=== PATIENT | male | born 1945 | race American Indian/Alaskan Native ===

== ENCOUNTER 2018-04-14 20:14 | Emergency (ER) | payer MEDICARE ==
--- NOTE | 2018-04-14 20:45 | Emergency Department Report ---
HPI - General Time Seen by Provider: 04/14/18 20:30 - HPI HPI: 72-year-old -[place] male presents to the emergency department via EMS from home with complaint of some right-sided abdominal and flank pain that started just prior to arrival. He tried some Tylenol for his symptoms without any relief. The pain is sharp and intermittent. There are no known aggravating or alleviating factors. He denies any problems with bowel or bladder, numbness or paresthesias, nausea or vomiting, fever, back pain. The patient appears to have a past medical history includes peripheral vascular disease, COPD, TIA, hypertension, AAA and previous kidney disease. The patient was just here at the end of March for a workup regarding some generalized weakness. Patient had a full cardiac workup at the beginning of 2017 that showed an EF of 55%. His primary care physician is Dr. Jameson. ED Past Medical Hx - Past Medical History Hx Hypertension: Yes Hx CVA: Yes (TIA) Hx Congestive Heart Failure: No Hx Diabetes: No Hx Renal Disease: Yes (not on dialysis) Hx Arthritis: Yes Hx Asthma: Yes Hx COPD: No Hx HIV: No Additional medical history: PAD. Anemia. suprarenal and infrarenal aortic abdominal aneurysm - Surgical History Additional Surgical History: aortobifemoral bypass graft - Social History Smoking Status: Never Smoker - Medications Home Medications: Home Medications Medication Instructions Recorded Confirmed Last Taken Type Losartan [Cozaar] 100 mg PO QDAY tablet 07/15/17 04/06/18 02/23/18 Rx amLODIPine [Norvasc] 10 mg PO QAM #30 tablet 07/15/17 04/06/18 02/23/18 Rx raNITIdine HCl [Zantac 300 MG TAB] 300 mg PO BID #60 tablet 07/15/17 04/06/18 02/23/18 Rx Ondansetron [Zofran TAB] 4 mg PO Q8HR PRN #21 tablet 01/04/18 04/08/18 02/23/18 Rx Acetaminophen [Acetaminophen TAB] 650 mg PO Q4H PRN #15 tablet 02/27/18 04/08/18 Unknown Rx HYDROcodone/APAP 7.5-325 [[place] 1 each PO Q6HR PRN #10 tablet 03/08/18 04/08/18 Unknown Rx 7.5-325 mg TAB] Fenofibrate [Tricor] 48 mg PO QDAY #30 tablet 03/11/18 04/06/18 Unknown Rx Furosemide [Lasix TAB] 40 mg PO QDAY #30 tablet 03/11/18 04/06/18 Unknown Rx Isosorbide Mononitrate 30 mg PO QAM 04/06/18 04/06/18 Unknown History Metoprolol [Lopressor TAB] 75 mg PO BID 04/06/18 04/06/18 Unknown History Amoxicillin [Trimox CAP] 500 mg PO Q8HR #15 capsule 04/10/18 Unknown Rx guaiFENesin/CODEINE [Robitussin AC] 10 ml PO Q8H PRN 10 Days oral.liqd 04/10/18 Unknown Rx ED Review of Systems ROS: Stated complaint: ABD PAIN Other details as noted in HPI Comment: All other systems reviewed and negative Constitutional: denies: chills, fever Eyes: denies: eye pain, eye discharge, vision change ENT: denies: ear pain, throat pain Respiratory: denies: cough, shortness of breath, wheezing Cardiovascular: denies: chest pain, palpitations Gastrointestinal: abdominal pain. denies: nausea, vomiting Genitourinary: denies: dysuria, discharge Musculoskeletal: denies: back pain, arthralgia Skin: denies: rash, lesions Neurological: denies: headache, weakness Physical Exam - Physical Exam Physical Exam: GENERAL: The patient is well-developed well-nourished. HEENT: Normocephalic. Atraumatic. Patient has moist mucous membranes. EYES: Extraocular motions are intact. Pupils are equal and reactive to light bilaterally. NECK: Supple. Trachea is midline. CHEST/LUNGS: Clear to auscultation. There is no respiratory distress noted. HEART/CARDIOVASCULAR: Irregular rhythm with tachycardia. ABDOMEN: Abdomen is soft. Right-sided abdominal tenderness to palpation. No guarding. Patient has normal bowel sounds. There is no abdominal distention. SKIN: Skin is warm and dry. NEURO: The patient is awake, alert, and cooperative. The patient has no focal neurologic deficits. The patient has normal speech. MUSCULOSKELETAL: There is no tenderness or deformity. There is no limitation range of motion. There is no evidence of acute injury. ED Course - Consultations Consultation #1: I spoke to the general surgeon field installation technician earlier in the evening, Dr. Moise, regarding the patient's CT findings of a retroperitoneal bleed without a source. Dr. Moise took a look at the CT scan and the patient's recent admission. He recommended giving a vascular surgeon involved but he is going to see the patient has a consult first thing in the morning and recommends admission to the hospitalist service. I spoke with the applied computer science professor on-call for [facility], Dr. Morgan, regarding the patient's EKG findings of atrial fibrillation with RVR and also the fact that I do not have the ability to anticoagulate secondary to the patient's finding of the retroperitoneal bleed. Dr. Morgan has agreed to see the patient as a cons ult. I spoke with the vascular surgeon field installation technician, Dr. Macias, in great detail regarding the patient's presentation, history and CT findings of the retroperitoneal bleed without a source. Dr. Macias took the time to look at the CT scan and has concern that there could be multiple different areas of aneurysmal rupture or bleed such as a pancreaticoduodenal artery or a renal artery. Since the patient has aneurysmal disease, a AAA, and previous findings of duodenal pancreatic inflammation, he says that the patient will need a stat MRA of the abdomen and pelvis with gadolinium to evaluate the source of the patient's bleed so that it can be treated. He says that if we are unable to obtain a stat MRA then the patient should be transferred to another facility. 04/15/18 04:15 Consultation #2: I spoke with the vascular surgeon field installation technician for [facility] who informed me noemi t they are on both ICU and ER saturation and cannot accept the patient. I spoke with the vascular surgeon field installation technician for [facility], Dr. Wheeler, who listened to the case presentation and graciously accepted the patient for transfer to the emergency department for further evaluation. 04/15/18 04:19 ED Medical Decision Making - Lab Data Result diagrams: 04/15/18 01:52 04/14/18 21:33 - EKG Data -: EKG Interpreted by Me Rate: tachycardia (101 bpm) - EKG Data When compared to previous EKG there are: previous EKG unavailable Interpretation: other (supraventricular bigeminy, incomplete right bundle branch block) - Radiology Data Radiology results: report reviewed EXAM: XR ABD SERIES W CXR 1V HISTORY: Abdominal Pain TECHNIQUE: PA view of the chest and supine and erect views of the abdomen PRIORS: CXR 04/06/2018, KUB abdomen 03/07/2018 FINDINGS: Chest: There is alveolar infiltrate and small pleural effusion in the right lung base. Trachea is midline. Cardiac and mediastinal silhouettes are unremarkable. Bony structures are intact. Abdomen: Mild gaseous distention of several small bowel loops containing air- fluid level are noted. However, there is moderate stool present throughout the colon. Findings are nonspecific and could be consistent with ileus or early small-bowel obstruction. No free air is identified. Soft tissues have no evidence for mass shadows or calcifications. Scattered surgical clips in the left abdomen are again noted. The bony structures are intact. IMPRESSION: 1. Right basilar infiltrate and small right effusion 2. Mild gaseous distension with air-fluid levels of several central small bowel loops. Findings may be consistent with focal ileus although early small-bowel obstruction is not excluded. Transcribed By: [facility] Dictated By: CRISTINE ZAPATA MD Electronically Authenticated By: CRISTINE ZAPATA MD Signed Date/Time: 04/14/18 2732 PROCEDURE: CT ABDOMEN PELVIS WO CON TECHNIQUE: Computerized axial tomography of the abdomen and pelvis was performed without intravenous contrast. This study is performed without intravascular contrast material and its sensitivity for abdominal and pelvic pathology, including neoplasms, inflammation, abscess, free fluid, thrombosis, arterial dissection and infarction, is reduced compared with a contrast enhanced study. HISTORY: abdominal pain COMPARISON: 02/23/2018 FINDINGS: Visualized lower thorax: There is atelectasis and moderate effusion in the right lower lung. Liver: Normal size and attenuation. Spleen: Normal size and attenuation. Gallbladder and biliary system: Normal. Pancreas: There remains slight enlargement of the head of the pancreas. There are few cysts identified in the head of the pancreas. Thickening of the bowel wall involving the second-third portion of the duodenum is again noted. The mass at the head of the pancreas is not excluded... Adrenals: There is enlargement of the left adrenal gland with an area of hypoattenuation measuring 12 millimeters. An adenoma is suspected. The right adrenal gland is not the well-delineated on this study. There is retroperitoneal fluid the which may represent ends the a combination of hemorrhage and inflammatory change is in the region surrounding kidney and lower region of the liver. Kidneys: Both kidneys have a normal size. No hydronephrosis. There are a few stones identified within the left renal cortex. There is fluid in the right retroperitoneal region surrounding the medial aspect of right kidney just anterior to the psoas muscle.. GI tract: No obstruction is seen. There is moderate fecal debris in the colon.. Lymph nodes and mesentery: Normal. Vasculature: Moderate atherosclerosis of aorta with an infrarenal abdominal aortic aneurysm again noted. This measures 4.3 centimeters.. Bladder: Normal. Reproductive organs: Normal. Peritoneum: There is fluid identified in right retroperitoneal region and the right pericolic gutter extending down into the pelvis. Spontaneous hematoma is suspected. The. Musculoskeletal structures: Mild degenerate changes of the lumbar spine.. Other: None. IMPRESSION: Moderate fluid identified in the right retroperitoneal region surrounding the medial aspect of right kidney anterior to the psoas muscle and extending down around the right pericolic gutter and pelvis. Spontaneous hematoma in the retroperitoneum is suspected. There is prominence of pancreatic head a few cysts identified in this region. There is thickening of the duodenal wall along the 2nd and 3rd portion of the duodenum. These findings have not changed since prior study. Pancreatic mass is possible. There is moderate atelectasis and effusion in the right lower lung. There is a stable infrarenal abdominal aortic aneurysm this measures 4.3 centimeters. Transcribed By: [facility] Dictated By: BJ MATUTE MD Electronically Authenticated By: BJ MATUTE MD Signed Date/Time: 04/15/1849 - Medical Decision Making This patient presented with acute right-sided abdominal pain. Patient's labs have been abnormal with a 20,000 white count with neutropenia and bandemia. He has mild hyperkalemia, JOCELYN, elevated lipase. Abd X-ray shows concern for ileus vs bowel obstruction. The CT scan of the abdomen and pelvis shows a right-sided retroperitoneal bleed without a source. The patient also has atrial fibrillation with RVR or at least some irregular rhythm with tachycardia. He was given some dose of Lopressor for rate control but obviously no blood thinnin g medication secondary to the retroperitoneal bleed. Otherwise the patient's blood pressure has remained steady. I spoke with cardiology regarding the irregular rhythm, and with general surgery regarding the retroperitoneal bleed. It was recommended to contact and discuss the case with vascular surgery. Per the consultation section, I spoke with Dr. Macias, who felt that the patient needed a stat MRI/MRA with gadolinium. Since I am unable to get an MRI at this facility overnight until about 7 or 8 AM, and since it was recommended to get this imaging done as soon as possible, it was recommended to transfer the patient to another facility where this imaging can be done expediently. I spoke with the vascular surgeon field installation technician at [facility] who accepted the patient for transfer to their facility. Patient will be transferred over there with his images and records lights and sirens. I also called and spoke with the patient's daughter and updated her about the plan for transfer and she understands and agrees. - Differential Diagnosis aneurysmal rupture, malignancy, hemorrhagic cyst Critical Care Time: Yes Critical care time in (mins) excluding proc time.: 75 Critical care attestation.: If time is entered above; I have spent that time in minutes in the direct care of this critically ill patient, excluding procedure time. Critical care time was spent on this patient during his initial evaluation, multiple re- evaluations, ordering an interpretation of labs and imaging, discussion with the general surgeon/applied computer science professor/hospitalist/vascular surgeons, discussion with the patient and his family. Critical Care Time: 75 minutes ED Disposition Clinical Impression: Retroperitoneal bleed, Acute kidney injury, Ventricular trigeminy, Tachyarrhythmia Anemia Qualifiers: Anemia type: unspecified type Qualified Code(s): D64.9 - Anemia, unspecified Disposition: DC/TX-70 ANOTHER TYPE HLTHCARE Is pt being admited?: No Condition: Serious Referrals: PRIMARY CARE, [Primary Care Provider] - 3-5 Days Time of Disposition: 05:05
[2018-04-14] MEDS ORDERED: CARDIZEM IV ONE (20:46)
[2018-04-14] MEDS ORDERED: LOPRESSOR IV ONE (21:29)
[2018-04-14 22:16] LABS: Hematocrit 31.4 % (35.5-45.6); Mean Corpuscular HGB Conc 32 % (32-34); Mean Corpuscular Volume 92 fl (84-94); Platelet Count 593 K/mm3 (140-440); Red Blood Count 3.42 M/mm3 (3.65-5.03)
[2018-04-14 22:17] LABS: Red Cell Distribution Width 20.2 % (13.2-15.2)
[2018-04-14] MEDS ORDERED: ZOSYN/NS 4.5GM/100ML 4.5 GM/100 ML VIAL IV ONE (22:19)
[2018-04-14 22:20] LABS: INR 1.1 (0.87-1.13)
[2018-04-14] MEDS ORDERED: NACL 0.9% 1000 ML 1,000 ML IV ONE (22:20)
[2018-04-14 22:26] LABS: Albumin 2.8 g/dL (3.9-5); Bilirubin,Direct 0.2 mg/dL (0-0.2); Calcium 8.6 mg/dL (8.4-10.2)
--- NOTE | 2018-04-14 22:45 | XRay Report ---
FINAL REPORT EXAM: XR ABD SERIES W CXR 1V HISTORY: Abdominal Pain TECHNIQUE: PA view of the chest and supine and erect views of the abdomen PRIORS: CXR 04/06/2018, KUB abdomen 03/07/2018 FINDINGS: Chest: There is alveolar infiltrate and small pleural effusion in the right lung base. Trachea is mid line. Cardiac and mediastinal silhouettes are unremarkable. Bony structures are intact. Abdomen: Mild gaseous distention of several small bowel loops containing air-fluid level are noted. H owever, there is moderate stool present throughout the colon. Findings are nonspecific and could be c onsistent with ileus or early small-bowel obstruction. No free air is identified. Soft tissues have no evidence for mass shadows or calcifications. Scattered surgical clips in the left abdomen are agai n noted. The bony structures are intact. IMPRESSION: 1. Right basilar infiltrate and small right effusion 2. Mild gaseous distension with air-fluid levels of several central small bowel loops. Findings may b e consistent with focal ileus although early small-bowel obstruction is not excluded.
[2018-04-14 22:49] LABS: Band Neutrophils # (Manual) 2.5 K/mm3; Basophils % (Manual) 0 % (0.0-1.8); Eosinophils % (Manual) 0 % (0.0-4.3); Monocytes % (Manual) 5.5 % (0.0-7.3); Nucleated Red Blood Cells 1.5 % (0.0-0.9); Total Cells Counted 200
[2018-04-14 22:50] LABS: Anisocytosis 1+
[2018-04-14 22:51] LABS: Ovalocytes Few; Platelet Estimate Appears Increased; Poikilocytosis Few
[2018-04-14] MEDS ORDERED: MORPHINE IV ONE (23:20)
[2018-04-14] MEDS ORDERED: ZOFRAN IV ONE (23:21)
[2018-04-14 23:59] LABS: Amorphous Crystals,Urine 2+; Bacteria,Urine 1+ /HPF (Negative); Bilirubin,Urine NEG (Negative); Blood,Urine NEG (Negative); Color,Urine Yellow (Yellow); Granular Casts,Urine 3 /LPF; Mucus,Urine FEW /HPF; Urobilinogen,Urine < 2.0 mg/dL (<2.0)
--- NOTE | 2018-04-15 00:50 | Cat Scan Report ---
FINAL REPORT PROCEDURE: CT ABDOMEN PELVIS WO CON TECHNIQUE: Computerized axial tomography of the abdomen and pelvis was performed without intravenous contrast. This study is performed without intravascular contrast material and its sensitivity for ab dominal and pelvic pathology, including neoplasms, inflammation, abscess, free fluid, thrombosis, art erial dissection and infarction, is reduced compared with a contrast enhanced study. HISTORY: abdominal pain COMPARISON: 02/23/2018 FINDINGS: Visualized lower thorax: There is atelectasis and moderate effusion in the right lower lung. Liver: Normal size and attenuation. Spleen: Normal size and attenuation. Gallbladder and biliary system: Normal. Pancreas: There remains slight enlargement of the head of the pancreas. There are few cysts identifie d in the head of the pancreas. Thickening of the bowel wall involving the second-third portion of the duodenum is again noted. The mass at the head of the pancreas is not excluded... Adrenals: There is enlargement of the left adrenal gland with an area of hypoattenuation measuring 12 millimeters. An adenoma is suspected. The right adrenal gland is not the well-delineated on this roberto dy. There is retroperitoneal fluid the which may represent ends the a combination of hemorrhage and i nflammatory change is in the region surrounding kidney and lower region of the liver. Kidneys: Both kidneys have a normal size. No hydronephrosis. There are a few stones identified within the left renal cortex. There is fluid in the right retroperitoneal region surrounding the medial asp ect of right kidney just anterior to the psoas muscle.. GI tract: No obstruction is seen. There is moderate fecal debris in the colon.. Lymph nodes and mesentery: Normal. Vasculature: Moderate atherosclerosis of aorta with an infrarenal abdominal aortic aneurysm again not ed. This measures 4.3 centimeters.. Bladder: Normal. Reproductive organs: Normal. Peritoneum: There is fluid identified in right retroperitoneal region and the right pericolic gutter extending down into the pelvis. Spontaneous hematoma is suspected. The. Musculoskeletal structures: Mild degenerate changes of the lumbar spine.. Other: None. IMPRESSION: Moderate fluid identified in the right retroperitoneal region surrounding the medial aspect of right kidney anterior to the psoas muscle and extending down around the right pericolic gutter and pelvis. Spontaneous hematoma in the retroperitoneum is suspected. There is prominence of pancreatic head a few cysts identified in this region. There is thickening of the duodenal wall along the 2nd and 3rd portion of the duodenum. These findings have not changed sinc e prior study. Pancreatic mass is possible. There is moderate atelectasis and effusion in the right lower lung. There is a stable infrarenal abdominal aortic aneurysm this measures 4.3 centimeters. The above findings are discussed with the patient's ER physician Dr. Lobo at the time of dictation 0 048 Eastern standard time on 04/15/2018 .
[2018-04-15] MEDS ORDERED: MORPHINE IV ONE (01:02)
[2018-04-15 02:05] LABS: Hematocrit 29.2 % (35.5-45.6); Hemoglobin 9.3 gm/dl (11.8-15.2)
--- NOTE | 2018-04-15 03:10 | Event Note ---
Date: 04/15/18 Contacted about 72 year old male with underlying PVD and right retroperitoneal hematoma. Reviewed CT scan on 04/15/18 and 02/28. Patient had duodenitis/pancreatitis and now has right retroperitoneal hematoma. He is status post aortobifemoral bypass with residual aneurysm measuring 4.2 cm above the aortobifemoral bypass, which is small and stable from prior CT. The retroperitoneal hematoma is concerning. Given underlying EJ, recommend MRA of the abdomen and pelvis with gadolinium contrast.
[2018-04-15 05:40] VITALS: BP 130/73
== END 2018-04-15 04:55 | disposition other institution (70) ==
LOC: ED 20:14
DX: N17.9 Acute kidney failure, unspecified (principal); K66.1 Hemoperitoneum; R00.8 Other abnormalities of heart beat; R00.0 Tachycardia, unspecified; D64.9 Anemia, unspecified
CPT/HCPCS: 36415; 74022; 74176; 80048; 80076; 81001; 82140; 83690; 84484; 85007; 85014; 85018; 85025; 85610; 86850; 86900; 86901; 87040; 93005; 93010; 96365; 96375; 96376; 99291; 99292; G0480; J2270; J2405; J2543; J7030; 80320

== ENCOUNTER 2020-08-05 15:52 | Inpatient (IN) | payer MEDICARE ==
[2020-08-05] MEDS ORDERED: VANCOMYCIN 1,250 MG in SODIUM CHLORIDE 0.9% 500 ML 500 ML IV ONE (16:12)
[2020-08-05] MEDS ORDERED: CEFEPIME/NS 2 GM/100 ML 2 GM/100 ML BAG IV ONE (16:12)
--- NOTE | 2020-08-05 16:19 | Emergency Department Report ---
ED Shortness of Breath HPI - General Chief Complaint: Dyspnea/Respdistress Stated Complaint: COREEN Time Seen by Provider: 08/05/20 15:58 Source: EMS Mode of arrival: Stretcher Limitations: Altered Mental Status, Physical Limitation - History of Present Illness Initial Comments: Chief complaint: Shortness of breath, hypoxia This is a 75-year-old male who presents from care home facility [facility] for shortness of breath hypoxia. Patient has history of chronic kidney disease, pancreatitis, CHF, sepsis, respiratory failure, COPD, TIA, asthma peripheral vascular disease status post left AKA who presents with shortness of breath hypoxia. Patient was recently diagnosed with pneumonia at a skilled nurse facility. Patient repeatedly refused transportation to the hospital according to daughter at the bedside. Patient has been treated with oral antibiotics at care home facility. First responders placed patient on nasal cannula. Patient had hypoxia 78% oxygen saturations by nasal cannula. Patient denies pain. He does have some shortness of breath. Daughter informed me that he has refused COVID-19 vaccination. He was diagnosed with COVID-19 at outside hospital during on last year. Patient is full CODE STATUS. Patient's December 23, 2019. Patient has been a resident of [facility] since 2019. Complaint: shortness of breath -: Gradual, days(s) (Several days) Severity: severe Consistency: intermittent Improves With: oxygen Worsens With: nothing Known History Of: COPD, congestive heart failure Context: other (Recent diagnosis of pneumonia at care home facility, patient refused hospitalization or transportation to the hospital during the past recent days) Associated Symptoms: denies other symptoms - Related Data Home Medications Medication Instructions Recorded Confirmed Last Taken Isosorbide Mononitrate 30 mg PO QAM 04/06/18 12/07/18 12/06/18 oxyCODONE [roxiCODONE] 5 mg PO Q6HR PRN 12/07/18 12/07/18 Unknown Previous Rx's Medication Instructions Recorded Last Taken Type amLODIPine 10 mg PO QAM #30 tablet 07/15/17 12/06/18 Rx raNITIdine HCL [Zantac 300 MG TAB] 300 mg PO BID #60 tablet 07/15/17 12/06/18 Rx Acetaminophen [Acetaminophen TAB] 650 mg PO Q4H PRN #15 tablet 02/27/18 12/06/18 Rx Fenofibrate [Tricor] 48 mg PO QDAY #30 tablet 03/11/18 12/06/18 Rx Aspirin EC [Ecotrin] 81 mg PO QDAY tablet 12/10/18 Unknown Rx AtorvaSTATin [Lipitor] 80 mg PO QHS #30 tablet 12/10/18 Unknown Rx Clopidogrel [Plavix] 75 mg PO QDAY tablet 12/10/18 Unknown Rx Furosemide [Lasix TAB] 40 mg PO QDAY tablet 12/10/18 Unknown Rx Furosemide [Lasix TAB] 40 mg PO QDAY #30 tablet 12/10/18 Unknown Rx ISOSORBIDE MONOnitrate [Imdur ER] 30 mg PO DAILY tablet 12/10/18 Unknown Rx Losartan [Cozaar] 100 mg PO QDAY #30 tablet 12/10/18 Unknown Rx Sodium Hypochlorite [Dakin's Half 1 applic TP BID bottle 12/10/18 Unknown Rx Strength] Vitamin A&D [Ad Ointment] 1 applic TP QDAY tube 12/10/18 Unknown Rx traMADoL [Ultram 50 MG tab] 50 mg PO Q12H PRN #8 tablet 12/10/18 Unknown Rx Allergies Allergy/AdvReac Type Severity Reaction Status Date / Time hydrochlorothiazide Allergy Unknown Verified 12/01/13 22:38 lisinopril Allergy Unknown Verified 12/01/13 22:38 rosuvastatin calcium Allergy Anaphylaxis Verified 12/01/13 22:38 [From Crestor] spironolactone Allergy Unknown Verified 12/01/13 22:38 banana AdvReac Unknown Verified 12/08/18 15:00 diltiazem [From Cardizem] AdvReac Unknown Verified 02/24/18 17:52 latex AdvReac Itching Verified 02/24/18 10:45 ED Review of Systems ROS: Stated complaint: COREEN Other details as noted in HPI Comment: All other systems reviewed and negative Constitutional: malaise Respiratory: cough, shortness of breath, wheezing Cardiovascular: denies: chest pain Gastrointestinal: denies: abdominal pain, nausea, vomiting ED Past Medical Hx - Past Medical History Previous Medical History?: Yes Hx Hypertension: Yes Hx CVA: Yes (TIA) Hx Congestive Heart Failure: No Hx Diabetes: No Hx Renal Disease: Yes (not on dialysis) Hx Arthritis: Yes Hx Asthma: Yes Hx COPD: No Hx HIV: No Additional medical history: PAD. Anemia. suprarenal and infrarenal aortic abdominal aneurysm - Surgical History Past Surgical History?: Yes Additional Surgical History: aortobifemoral bypass graft. Left AKA - Social History Smoking Status: Former Smoker - Medications Home Medications: Home Medications Medication Instructions Recorded Confirmed Last Taken Type amLODIPine 10 mg PO QAM #30 tablet 07/15/17 12/07/18 12/06/18 Rx raNITIdine HCL [Zantac 300 MG TAB] 300 mg PO BID #60 tablet 07/15/17 12/07/18 12/06/18 Rx Acetaminophen [Acetaminophen TAB] 650 mg PO Q4H PRN #15 tablet 02/27/18 12/07/18 12/06/18 Rx Fenofibrate [Tricor] 48 mg PO QDAY #30 tablet 03/11/18 12/07/18 12/06/18 Rx Isosorbide Mononitrate 30 mg PO QAM 04/06/18 12/07/18 12/06/18 History oxyCODONE [roxiCODONE] 5 mg PO Q6HR PRN 12/07/18 12/07/18 Unknown History Aspirin EC [Ecotrin] 81 mg PO QDAY tablet 12/10/18 Unknown Rx AtorvaSTATin [Lipitor] 80 mg PO QHS #30 tablet 12/10/18 Unknown Rx Clopidogrel [Plavix] 75 mg PO QDAY tablet 12/10/18 Unknown Rx Furosemide [Lasix TAB] 40 mg PO QDAY tablet 12/10/18 Unknown Rx Furosemide [Lasix TAB] 40 mg PO QDAY #30 tablet 12/10/18 Unknown Rx ISOSORBIDE MONOnitrate [Imdur ER] 30 mg PO DAILY tablet 12/10/18 Unknown Rx Losartan [Cozaar] 100 mg PO QDAY #30 tablet 12/10/18 Unknown Rx Sodium Hypochlorite [Dakin's Half 1 applic TP BID bottle 12/10/18 Unknown Rx Strength] Vitamin A&D [Ad Ointment] 1 applic TP QDAY tube 12/10/18 Unknown Rx traMADoL [Ultram 50 MG tab] 50 mg PO Q12H PRN #8 tablet 12/10/18 Unknown Rx ED Physical Exam - General Limitations: Altered Mental Status, Physical Limitation General appearance: alert, other (Mild work of breathing appears chronically ill appears uncomfortable) - Head Head exam: Present: atraumatic, normocephalic - Eye Eye exam: Present: normal appearance - ENT ENT exam: Present: mucous membranes moist - Neck Neck exam: Present: normal inspection, full ROM - Respiratory Respiratory exam: Present: wheezes, rales, rhonchi, decreased breath sounds. Absent: respiratory distress, accessory muscle use - Cardiovascular Cardiovascular Exam: Present: regular rate, normal rhythm, normal heart sounds. Absent: systolic murmur, diastolic murmur, rubs, gallop - GI/Abdominal GI/Abdominal exam: Present: soft, normal bowel sounds. Absent: distended, tenderness, guarding, rebound - Rectal Rectal exam: Present: deferred - Extremities Exam Extremities exam: Present: other (Right lower extremity: Contracted with heel b oot, no ulcers, left AKA) - Neurological Exam Neurological exam: Present: alert, oriented X3 - Psychiatric Psychiatric exam: Present: agitated - Skin Skin exam: Present: warm, dry, intact, rash, pallor ED Course Vital Signs 08/05/20 08/05/20 08/05/20 15:56 16:03 16:15 Temperature 99 F Pulse Rate 96 H 91 H Respiratory 16 16 16 Rate Blood Pressure 182/87 O2 Sat by Pulse 91 98 Oximetry 08/05/20 08/05/20 08/05/20 16:31 16:46 17:00 Temperature Pulse Rate 80 76 78 Respiratory 15 15 16 Rate Blood Pressure O2 Sat by Pulse 97 94 97 Oximetry ED Medical Decision Making - Lab Data Result diagrams: 08/05/20 16:25 08/05/20 16:25 Laboratory Results - last 24 hr 08/05/20 08/05/20 08/05/20 16:25 16:25 16:25 WBC 20.7 H RBC 2.98 L Hgb 7.9 L Hct 24.7 L MCV 83 L MCH 27 L MCHC 32 RDW 18.0 H Plt Count 626 H Seg Neutrophils % [employer] D-Dimer Sodium 139 Potassium 3.7 Chloride 106.1 Carbon Dioxide 24 Anion Gap 13 BUN 13 Creatinine 1.0 Estimated GFR > 60 BUN/Creatinine Ratio 13 Glucose 112 H Lactic Acid 0.70 Calcium 9.0 Ferritin Total Bilirubin 0.30 AST 12 ALT < 5 L Alkaline Phosphatase 54 Lactate Dehydrogenase C-Reactive Protein Total Protein 6.9 Albumin 3.5 L Albumin/Globulin Ratio 1.0 08/05/20 08/05/20 08/05/20 16:25 16:25 16:25 WBC RBC Hgb Hct MCV MCH MCHC RDW Plt Count Seg Neutrophils % D-Dimer 1218.20 H Sodium Potassium Chloride Carbon Dioxide Anion Gap BUN Creatinine Estimated GFR BUN/Creatinine Ratio Glucose 107 H Lactic Acid Calcium Ferritin 817.3 H Total Bilirubin AST ALT Alkaline Phosphatase Lactate Dehydrogenase 225 H C-Reactive Protein 8.30 H Total Protein Albumin Albumin/Globulin Ratio - EKG Data -: EKG Interpreted by Me EKG shows normal: sinus rhythm, axis Rate: normal - EKG Data 08/05/20 16:19 EKG obtained 1607 EKG interpreted by me Normal sinus rhythm rate 90 bpm normal axis normal intervals no ST elevation nonspecific T wave pattern - Radiology Data Radiology results: report reviewed Patient Name: TAMMI CAVANAUGH Gender: Male Date of : 1945 Referring Provider: SYLVIA MATUTE Organization: [facility] Accession Number: [id number] Requested Date: August 05, 2020 16:12 Report Status: Final Requested Procedure: 1 Procedure Description: XR chest 1V ap Modality: XR Findings Reporting MD: Marty Melendez Dictation Time: August 05, 2020 15:48 Office Cleaner: Not available Fingerprint Clerk Date: CHEST 1 VIEW 08/05/2020 3:39 PM INDICATION / CLINICAL INFORMATION: hypoxia recent pneumonia. COMPARISON: 12/07/18 FINDINGS: SUPPORT DEVICES: None. HEART / MEDIASTINUM: Heart is mildly enlarged but stable. LUNGS / PLEURA: Diffuse airspace disease throughout the right lung and in the left lung base. Mild associated interstitial edema and small bilateral pleural effusions. No pneumothorax. ADDITIONAL FINDINGS: No significant additional findings. IMPRESSION: 1. Bilateral airspace disease possibly representing pneumonia versus airspace edema. Small bilateral pleural effusions. Signer Name: Marty Melendez MD Signed: 08/05/2020 3:48 PM Workstation Name: [id number] - Medical Decision Making Acute respiratory failure hypoxia due to healthcare associated pneumonia suspicious for bacterial pneumonia. However, during pandemic and vaccination status COVID-19 must be considered. Patient is requiring 4 L nasal cannula for oxygenation. On 4 L nasal cannula oxygen saturation 98%. Broad-spectrum antibiotics cefepime vancomycin COVID-19 precautions initiated. Echocardiogram obtained 02/20/2018 revealed: Ejection fraction 55 to 60% with normal systolic function. Covid markers ferritin D-dimer LDH CRP all elevated, significant leukocytosis noted, microcytic anemia has developed and worsened since 2018 H&H lowest value for patient Critical Care Time: Yes Critical care time in (mins) excluding proc time.: 40 Critical care attestation.: If time is entered above; I have spent that time in minutes in the direct care of this critically ill patient, excluding procedure time. 40 minutes of critical care time excluding procedures were used in the care of the patient. I came immediately to the bedside upon patient's arrival. I obtained history from EMS at the bedside. I discussed treatment plan with the nursing team members. I reviewed electronic record. I obtained history from the daughter at the bedside. I reviewed electronic medical record. I was concerned for imminent airway compromise. Patient required multiple interventions and reassessments. ED Disposition Clinical Impression: Healthcare-associated pneumonia, Acute respiratory failure with hypoxia, Suspected COVID-19 virus infection Disposition: OP ADMIT IP TO THIS HOSP Is pt being admited?: Yes Does the pt Need Aspirin: No Condition: Stable Instructions: Bacterial Pneumonia (ED)
[2020-08-05] MEDS ORDERED: VANCOMYCIN 1,250 MG in SODIUM CHLORIDE 0.9% 250ML 250 ML IV ONE (16:30)
--- NOTE | 2020-08-05 16:52 | XRay Report ---
CHEST 1 VIEW 08/05/2020 3:39 PM INDICATION / CLINICAL INFORMATION: hypoxia recent pneumonia. COMPARISON: 12/07/18 FINDINGS: SUPPORT DEVICES: None. HEART / MEDIASTINUM: Heart is mildly enlarged but stable. LUNGS / PLEURA: Diffuse airspace disease throughout the right lung and in the left lung base. Mild as sociated interstitial edema and small bilateral pleural effusions. No pneumothorax. ADDITIONAL FINDINGS: No significant additional findings. IMPRESSION: 1. Bilateral airspace disease possibly representing pneumonia versus airspace edema. Small bilateral pleural effusions. Signer Name: Marty Melendez MD Signed: 08/05/2020 4:48 PM Workstation Name: [id number]
[2020-08-05] MEDS ORDERED: VANCOMYCIN PHARMACY TO DOSE IV SCH (17:00)
[2020-08-05 17:19] LABS: Hematocrit 24.7 % (35.5-45.6); Hemoglobin 7.9 gm/dl (11.8-15.2); Mean Corpuscular HGB Conc 32 % (32-34); Mean Corpuscular Volume 83 fl (84-94); Platelet Count 626 K/mm3 (140-440); Red Blood Count 2.98 M/mm3 (3.65-5.03)
[2020-08-05 17:28] LABS: Albumin 3.5 g/dL (3.9-5); BUN/Creatinine Ratio 13; Blood Urea Nitrogen 13 mg/dL (9-20); C-Reactive Protein 8.3 mg/dL (0.00-1.30); Hemolysis Index 4
[2020-08-05 17:41] LABS: Alanine Aminotransferase < 5 units/L (7-56)
[2020-08-05] MEDS ORDERED: ONDANSETRON 4 MG/2 ML INJ IV PRN (17:45)
[2020-08-05] MEDS ORDERED: ACETAMINOPHEN 325 MG TAB PO PRN ×3 (17:45→22:25)
[2020-08-05 18:21] LABS: Chol/HDL Ratio 2.52 %; HDL Cholesterol 61 mg/dL (40-59); LDL Cholesterol,Direct 72 mg/dL (50-130)
[2020-08-05] MEDS: hydrALAZINE 20 MG/1 ML INJ IV PRN (21:26)
[2020-08-05 21:46] LABS: Total Cells Counted 100
[2020-08-05 21:54] LABS: Helmet Cells Rare; Ovalocytes Rare
[2020-08-05 21:55] LABS: Large Platelets Rare; Platelet Estimate Consistent w Auto; Tear Drop Cells Rare
--- NOTE | 2020-08-05 22:07 | History and Physical Report ---
History of Present Illness Date of examination: 08/05/20 Date of admission: 08/05/20 21:51 Chief complaint: Shortness of breath for 2 days History of present illness: 75-year-old male with history of coronary artery disease, hyperlipidemia, congestive heart failure and hypertension comes in from [facility] from increasing shortness of breath and low oxygen saturations. Patient has also history of chronic kidney disease. [facility] Patient apparently refused transportation initially. Patient was treated with [place] [facility] patient's oxygen saturations [place] 78% [place] the [place] [facility] which improved with nasal cannula oxygen. Cough productive of mucoid sputum. No exposure to coronavirus. - Past Medical History Previous Medical History?: Yes --Hypertension: Yes --CVA: Yes (TIA) --Renal Disease: Yes not on dialysis) --Arthritis: Yes --Asthma: Yes Additional medical history: PAD. Anemia. suprarenal and infrarenal aortic abdominal aneurysm - Surgical History Past Surgical History?: Yes Additional Surgical History: aortobifemoral bypass graft. Left AKA - Social History Smoking Status: Former Smoker Family history Htn Review of Systems ROS: Constitutional no fever or chills. HEENT no sore throat no post nasal drip no diplopia Neck no neck stiffness no lymph gland enlargement Chest and lungs shortness of breath and coughing present. Also hypoxic at 78%. CVS no chest pain no diaphoresis no palpitations GI no nausea no vomiting no diarrhea Genitourinary system no dysuria no flank pain Musculoskeletal system no muscle pains no joint pains [employer] no syncope no seizures Skin no rash no itching Psychiatric no depression no homicidal or suicidal tendencies Hematologic no lymphedema or bruising Endocrine no polydipsia no polyuria no cold intolerance no heat intolerance Medications and Allergies Allergies Allergy/AdvReac Type Severity Reaction Status Date / Time hydrochlorothiazide Allergy Unknown Verified 12/01/13 22:38 lisinopril Allergy Unknown Verified 12/01/13 22:38 rosuvastatin calcium Allergy Anaphylaxis Verified 12/01/13 22:38 [From Crestor] spironolactone Allergy Unknown Verified 12/01/13 22:38 banana AdvReac Unknown Verified 12/08/18 15:00 diltiazem [From Cardizem] AdvReac Unknown Verified 02/24/18 17:52 latex AdvReac Itching Verified 02/24/18 10:45 Home Medications Medication Instructions Recorded Confirmed Last Taken Type amLODIPine 10 mg PO QAM #30 tablet 07/15/17 12/07/18 12/06/18 Rx raNITIdine HCL [Zantac 300 MG TAB] 300 mg PO BID #60 tablet 07/15/17 12/07/18 12/06/18 Rx Acetaminophen [Acetaminophen TAB] 650 mg PO Q4H PRN #15 tablet 02/27/18 12/07/18 12/06/18 Rx Fenofibrate [Tricor] 48 mg PO QDAY #30 tablet 03/11/18 12/07/18 12/06/18 Rx Isosorbide Mononitrate 30 mg PO QAM 04/06/18 12/07/18 12/06/18 History oxyCODONE [roxiCODONE] 5 mg PO Q6HR PRN 12/07/18 12/07/18 Unknown History Aspirin EC [Ecotrin] 81 mg PO QDAY tablet 12/10/18 Unknown Rx AtorvaSTATin [Lipitor] 80 mg PO QHS #30 tablet 12/10/18 Unknown Rx Clopidogrel [Plavix] 75 mg PO QDAY tablet 12/10/18 Unknown Rx Furosemide [Lasix TAB] 40 mg PO QDAY tablet 12/10/18 Unknown Rx Furosemide [Lasix TAB] 40 mg PO QDAY #30 tablet 12/10/18 Unknown Rx ISOSORBIDE MONOnitrate [Imdur ER] 30 mg PO DAILY tablet 12/10/18 Unknown Rx Losartan [Cozaar] 100 mg PO QDAY #30 tablet 12/10/18 Unknown Rx Sodium Hypochlorite [Dakin's Half 1 applic TP BID bottle 12/10/18 Unknown Rx Strength] Vitamin A&D [Ad Ointment] 1 applic TP QDAY tube 12/10/18 Unknown Rx traMADoL [Ultram 50 MG tab] 50 mg PO Q12H PRN #8 tablet 12/10/18 Unknown Rx Active Meds: Active Medications Acetaminophen (Acetaminophen 325 Mg Tab) 650 mg PO Q4H PRN PRN Reason: Pain MILD(1-3)/Fever >100.5/REDD Hydralazine HCl (Hydralazine 20 Mg/1 Ml Inj) 10 mg IV Q6HR PRN PRN Reason: hyperten Last Admin: 08/05/20 21:26 Dose: 10 mg Documented by: Ondansetron HCl (Ondansetron 4 Mg/2 Ml Inj) 4 mg IV Q8H PRN PRN Reason: Nausea And Vomiting Sodium Chloride (Sodium Chloride 0.9% 10 Ml Flush Syringe) 10 ml IV BID DENISE Sodium Chloride (Sodium Chloride 0.9% 10 Ml Flush Syringe) 10 ml IV PRN PRN PRN Reason: LINE FLUSH Exam - Constitutional Vitals: Temp Pulse Resp BP Pulse Ox 98.1 F 87 17 163/81 100 08/05/20 19:40 08/05/20 21:45 08/05/20 21:45 08/05/20 21:45 08/05/20 21:45 General appearance: Present: mild distress, well-nourished - EENT Eyes: Present: PERRL ENT: hearing intact, clear oral mucosa - Neck Neck: Present: supple, normal ROM - Respiratory Respiratory effort: normal Respiratory: bilateral: CTA, rales (Scattered) - Cardiovascular Heart rate: 78 Rhythm: regular Heart Sounds: Present: S1 & S2. Absent: rub, click - Extremities Extremities: pulses symmetrical, No edema Peripheral Pulses: within normal limits - Abdominal General gastrointestinal: Present: soft, non-tender, non-distended, normal bowel sounds Male genitourinary: Present: normal - Rectal Rectal Exam: deferred - Integumentary Integumentary: Present: clear, warm, dry - Musculoskeletal Musculoskeletal: gait normal, strength equal bilaterally - Psychiatric Psychiatric: appropriate mood/affect, intact judgment & insight - Neurologic Neurologic: CNII-XII intact, moves all extremities - Allied Health Allied health notes reviewed: nursing, case management HEART Score - HEART Score Troponin: Troponin T 0.127 ng/mL (0.00-0.029) H* 08/05/20 16:25 Results - Labs CBC & Chem 7: 08/05/20 16:25 08/05/20 16:25 Labs: Laboratory Last Values WBC 20.7 K/mm3 (4.5-11.0) H 08/05/20 16:25 RBC 2.98 M/mm3 (3.65-5.03) L 08/05/20 16:25 Hgb 7.9 gm/dl (11.8-15.2) L 08/05/20 16:25 Hct 24.7 % (35.5-45.6) L 08/05/20 16:25 MCV 83 fl (84-94) L 08/05/20 16:25 MCH 27 pg (28-32) L 08/05/20 16:25 MCHC 32 % (32-34) 08/05/20 16:25 RDW 18.0 % (13.2-15.2) H 08/05/20 16:25 Plt Count 626 K/mm3 (140-440) H 08/05/20 16:25 Add Manual Diff Complete 08/05/20 16:25 Total Counted 100 08/05/20 16:25 Seg Neutrophils % [place] 08/05/20 16:25 Lymphocytes % (Manual) 2.0 % (13.4-35.0) L 08/05/20 16:25 Monocytes % (Manual) 5.0 % (0.0-7.3) 08/05/20 16:25 Nucleated RBC % Not Reportable 08/05/20 16:25 Seg Neutrophils # Man 19.3 K/mm3 (1.8-7.7) H 08/05/20 16:25 Band Neutrophils # 0.0 K/mm3 08/05/20 16:25 Lymphocytes # (Manual) 0.4 K/mm3 (1.2-5.4) L 08/05/20 16:25 Abs React Lymphs (Man) 0.0 K/mm3 08/05/20 16:25 Monocytes # (Manual) 1.0 K/mm3 (0.0-0.8) H 08/05/20 16:25 Eosinophils # (Manual) 0.0 K/mm3 (0.0-0.4) 08/05/20 16:25 Basophils # (Manual) 0.0 K/mm3 (0.0-0.1) 08/05/20 16:25 Metamyelocytes # 0.0 K/mm3 08/05/20 16:25 Myelocytes # 0.0 K/mm3 08/05/20 16:25 Promyelocytes # 0.0 K/mm3 08/05/20 16:25 Blast Cells # 0.0 K/mm3 08/05/20 16:25 WBC Morphology Not Reportable 08/05/20 16:25 Hypersegmented Neuts Not Reportable 08/05/20 16:25 Hyposegmented Neuts Not Reportable 08/05/20 16:25 Hypogranular Neuts Not Reportable 08/05/20 16:25 Smudge Cells Not Reportable 08/05/20 16:25 Toxic Granulation Not Reportable 08/05/20 16:25 Toxic Vacuolation Not Reportable 08/05/20 16:25 Dohle Bodies Not Reportable 08/05/20 16:25 Pelger-Huet Anomaly Not Reportable 08/05/20 16:25 Cheri Rods Not Reportable 08/05/20 16:25 Platelet Estimate Consistent w auto 08/05/20 16:25 Clumped Platelets Not Reportable 08/05/20 16:25 Plt Clumps, EDTA Not Reportable 08/05/20 16:25 Large Platelets Rare 08/05/20 16:25 Giant Platelets Not Reportable 08/05/20 16:25 Platelet Satelliting Not Reportable 08/05/20 16:25 Plt Morphology Comment Not Reportable 08/05/20 16:25 RBC Morphology Not Reportable 08/05/20 16:25 Dimorphic RBCs Not Reportable 08/05/20 16:25 Polychromasia Not Reportable 08/05/20 16:25 Hypochromasia Not Reportable 08/05/20 16:25 Poikilocytosis Not Reportable 08/05/20 16:25 Anisocytosis Not Reportable 08/05/20 16:25 Microcytosis Not Reportable 08/05/20 16:25 Macrocytosis Not Reportable 08/05/20 16:25 Spherocytes Not Reportable 08/05/20 16:25 Pappenheimer Bodies Not Reportable 08/05/20 16:25 Sickle Cells Not Reportable 08/05/20 16:25 Target Cells Not Reportable 08/05/20 16:25 Tear Drop Cells Rare 08/05/20 16:25 Ovalocytes Rare 08/05/20 16:25 Helmet Cells Rare 08/05/20 16:25 [place] Bodies Not Reportable 08/05/20 16:25 [place] Rings Not Reportable 08/05/20 16:25 [place] Cells Not Reportable 08/05/20 16:25 Bite Cells Not Reportable 08/05/20 16:25 Crenated Cell Not Reportable 08/05/20 16:25 Elliptocytes Not Reportable 08/05/20 16:25 Acanthocytes (Spur) Not Reportable 08/05/20 16:25 Rouleaux Not Reportable 08/05/20 16:25 Hemoglobin C Crystals Not Reportable 08/05/20 16:25 Schistocytes Not Reportable 08/05/20 16:25 Malaria parasites Not Reportable 08/05/20 16:25 Mc Bodies Not Reportable 08/05/20 16:25 Hem Pathologist Commnt No 08/05/20 16:25 D-Dimer 1218.20 ng/mlDDU (0-234) H 08/05/20 16:25 Sodium 139 mmol/L (137-145) 08/05/20 16:25 Potassium 3.7 mmol/L (3.6-5.0) 08/05/20 16:25 Chloride 106.1 mmol/L (98-107) 08/05/20 16:25 Carbon Dioxide 24 mmol/L (22-30) 08/05/20 16:25 Anion Gap 13 mmol/L 08/05/20 16:25 BUN 13 mg/dL (9-20) 08/05/20 16:25 Creatinine 1.0 mg/dL (0.8-1.3) 08/05/20 16:25 Estimated GFR > 60 ml/min 08/05/20 16:25 BUN/Creatinine Ratio 13 % 08/05/20 16:25 Glucose 107 mg/dL (75-100) H 08/05/20 16:25 Glucose 112 mg/dL (75-100) H 08/05/20 16:25 Lactic Acid 0.50 mmol/L (0.7-2.0) L 08/05/20 19:51 Calcium 9.0 mg/dL (8.4-10.2) 08/05/20 16:25 Ferritin 817.3 ng/mL (30.0-300.0) H 08/05/20 16:25 Total Bilirubin 0.30 mg/dL (0.1-1.2) 08/05/20 16:25 AST 12 units/L (5-40) 08/05/20 16:25 ALT < 5 units/L (7-56) L 08/05/20 16:25 Alkaline Phosphatase 54 units/L (35-129) 08/05/20 16:25 Lactate Dehydrogenase 225 units/L (91-180) H 08/05/20 16:25 Troponin T 0.127 ng/mL (0.00-0.029) H* 08/05/20 16:25 C-Reactive Protein 8.30 mg/dL (0.00-1.30) H 08/05/20 16:25 NT-Pro-B Natriuret Pep > 86264 pg/mL (0-900) H 08/05/20 16:25 Total Protein 6.9 g/dL (6.3-8.2) 08/05/20 16:25 Albumin 3.5 g/dL (3.9-5) L 08/05/20 16:25 Albumin/Globulin Ratio 1.0 % 08/05/20 16:25 Triglycerides 93 mg/dL (2-149) 08/05/20 16:25 Cholesterol 154 mg/dL (50-199) 08/05/20 16:25 LDL Cholesterol Direct 72 mg/dL (50-130) 08/05/20 16:25 HDL Cholesterol 61 mg/dL (40-59) H 08/05/20 16:25 Cholesterol/HDL Ratio 2.52 % 08/05/20 16:25 Microbiology: Microbiology 08/05/20 16:25 Peripheral/Venous Blood Culture - Preliminary Culture in Progress 08/05/20 16:17 Peripheral/Venous Blood Culture - Preliminary Culture in Progress - Imaging and Cardiology EKG: report reviewed Chest x-ray: report reviewed Imaging and Cardiology: Chest x-ray bilateral airspace disease possibly representing pneumonia versus airspace edema. Small bilateral pleural effusions Assessment and Plan Advance Directives: Yes (Full code) VTE prophylaxis?: Chemical Plan of care discussed with patient/family: Yes - Patient Problems (1) Acute respiratory failure with hypoxia Current Visit: Yes Status: Acute Plan to address problem: Continue oxygen supplementation and IV antibiotics BiPAP if necessary (2) SIRS (systemic inflammatory response syndrome) Current Visit: Yes Status: Acute Plan to address problem: High white count and tachycardia and hypoxia consistent with Sirs (3) Bilateral pneumonia Current Visit: Yes Status: Chronic Plan to address problem: Bilateral pneumonia Treat as community-acquired pneumonia Coronavirus PCR requested (4) Person under investigation for COVID-19 Current Visit: Yes Status: Acute Plan to address problem: Coronavirus PCR in the morning IV Decadron at 8 mg initiated ID consult requested (5) CHF exacerbation Current Visit: Yes Status: Acute Qualifiers: Heart failure type: combined systolic and diastolic Qualified Code(s): I50.43 - Acute on chronic combined systolic (congestive) and diastolic (congestive) heart failure Plan to address problem: High BNP Lasix 40 every 12 Echocardiogram for ejection fraction Cardiology consult requested (6) Coronary artery disease Current Visit: Yes Status: Acute Plan to address problem: Continue Plavix and isosorbide (7) Hyperlipidemia Current Visit: Yes Status: Acute Plan to address problem: Continue statins and fenofibrate (8) Hypertension Current Visit: Yes Status: Chronic Qualifiers: Hypertension type: essential hypertension Qualified Code(s): I10 - Essential (primary) hypertension Plan to address problem: Continue antihypertensives (9) Anemia Current Visit: Yes Status: Chronic Qualifiers: Anemia type: iron deficiency Plan to address problem: Probably iron deficient but will check iron and folic acid and B12 (10) GERD (gastroesophageal reflux disease) Current Visit: Yes Status: Chronic Qualifiers: Esophagitis presence: without esophagitis Qualified Code(s): K21.9 - Gastro-esophageal reflux disease without esophagitis Plan to address problem: On ranitidine (11) DVT prophylaxis Current Visit: Yes Status: Acute Plan to address problem: On Lovenox and GI prophylaxis
[2020-08-05] MEDS ORDERED: oxyCODONE 5 MG TAB PO PRN (22:08)
[2020-08-05] MEDS ORDERED: RANITIDINE HCL 300 MG PO SCH (22:15)
[2020-08-05] MEDS: AZITHROMYCIN/NS 500 MG/250 ML 500 MG/250 ML BAG IV SCH (22:40)
[2020-08-05] MEDS: FAMOTIDINE 20 MG TAB PO SCH (22:40)
[2020-08-05] MEDS: cefTRIAXone/NS 2 GM/100 ML 2 GM/100 ML BAG IV SCH (22:41)
[2020-08-05] MEDS ORDERED: dexAMETHasone 4 MG/ML VIAL IV SCH (23:00)
[2020-08-05] MEDS ORDERED: AZITHROMYCIN/NS 500 MG/250 ML 500 MG/250 ML BAG IV SCH ×2 (23:00→23:45)
[2020-08-05] MEDS: HYDROmorphone 1 MG/1 ML INJ IV PRN (23:54)
[2020-08-06 03:32] LABS: % Iron Saturation 9.05 %
[2020-08-06] MEDS: FUROSEMIDE 40 MG/4 ML INJ IV SCH ×2 (06:10→18:21)
[2020-08-06] MEDS: ASPIRIN EC 81 MG TAB PO SCH (09:23)
[2020-08-06] MEDS: FAMOTIDINE 20 MG TAB PO SCH ×2 (09:23→21:31)
[2020-08-06] MEDS: LOSARTAN 50 MG TAB PO SCH (09:23)
[2020-08-06] MEDS: amLODIPine 10 MG TAB PO SCH (09:23)
[2020-08-06] MEDS: CLOPIDOGREL 75 MG TAB PO SCH (09:23)
[2020-08-06] MEDS: FENOFIBRATE 48 MG TAB PO SCH (09:49)
[2020-08-06] MEDS: hydrALAZINE 20 MG/1 ML INJ IV PRN (09:49)
[2020-08-06] MEDS ORDERED: FAMOTIDINE 20 MG/2 ML INJ IV SCH (10:00)
[2020-08-06] MEDS ORDERED: FUROSEMIDE 40 MG TAB PO SCH (10:00)
[2020-08-06] MEDS ORDERED: cefTRIAXone/NS 2 GM/100 ML 2 GM/100 ML BAG IV SCH ×2 (10:00)
--- NOTE | 2020-08-06 12:37 | Consultation ---
History of Present Illness Consult date: 08/06/20 Consult reason: congestive heart failure History of present illness: The patient is a frail, 75-year-old man who lives in a assisted, brought in for shortness of breath, hypoxemia and suspected COVID-19 infection. He remains under Covid observation while awaiting the results of his Covid serology. Chest x-ray in the hospital showed bilateral pulmonary infiltrates, worse on the right. There was mild cardiomegaly. EKG was normal sinus rhythm with nonspecific T wave flattening. No acute ischemic changes on the ECG. Sign ificant laboratory abnormalities on this presentation include a leukocytosis of 20,000, and anemia with a hematocrit of 24. Previous cardiac work-up includes an echocardiogram 2 years ago, that reported normal left ventricular systolic function, ejection fraction 55 to 60%. There was mild aortic stenosis. It is also reported in the records that the patient previously declined invasive ischemic cardiac evaluation, opted for conservative cardiac management. Past History Past Medical History: hypertension Medications and Allergies Allergies Allergy/AdvReac Type Severity Reaction Status Date / Time hydrochlorothiazide Allergy Unknown Verified 12/01/13 22:38 lisinopril Allergy Unknown Verified 12/01/13 22:38 rosuvastatin calcium Allergy Anaphylaxis Verified 12/01/13 22:38 [From Crestor] spironolactone Allergy Unknown Verified 12/01/13 22:38 banana AdvReac Unknown Verified 12/08/18 15:00 diltiazem [From Cardizem] AdvReac Unknown Verified 02/24/18 17:52 latex AdvReac Itching Verified 02/24/18 10:45 Home Medications Medication Instructions Recorded Confirmed Last Taken Type amLODIPine 10 mg PO QAM #30 tablet 07/15/17 12/07/18 12/06/18 Rx raNITIdine HCL [Zantac 300 MG TAB] 300 mg PO BID #60 tablet 07/15/17 12/07/18 12/06/18 Rx Acetaminophen [Acetaminophen TAB] 650 mg PO Q4H PRN #15 tablet 02/27/18 12/07/18 12/06/18 Rx Fenofibrate [Tricor] 48 mg PO QDAY #30 tablet 03/11/18 12/07/18 12/06/18 Rx Isosorbide Mononitrate 30 mg PO QAM 04/06/18 12/07/18 12/06/18 History oxyCODONE [roxiCODONE] 5 mg PO Q6HR PRN 12/07/18 12/07/18 Unknown History Aspirin EC [Ecotrin] 81 mg PO QDAY tablet 12/10/18 Unknown Rx AtorvaSTATin [Lipitor] 80 mg PO QHS #30 tablet 12/10/18 Unknown Rx Clopidogrel [Plavix] 75 mg PO QDAY tablet 12/10/18 Unknown Rx Furosemide [Lasix TAB] 40 mg PO QDAY tablet 12/10/18 Unknown Rx Furosemide [Lasix TAB] 40 mg PO QDAY #30 tablet 12/10/18 Unknown Rx ISOSORBIDE MONOnitrate [Imdur ER] 30 mg PO DAILY tablet 12/10/18 Unknown Rx Losartan [Cozaar] 100 mg PO QDAY #30 tablet 12/10/18 Unknown Rx Sodium Hypochlorite [Dakin's Half 1 applic TP BID bottle 12/10/18 Unknown Rx Strength] Vitamin A&D [Ad Ointment] 1 applic TP QDAY tube 12/10/18 Unknown Rx traMADoL [Ultram 50 MG tab] 50 mg PO Q12H PRN #8 tablet 12/10/18 Unknown Rx Active Meds: Active Medications Acetaminophen (Acetaminophen 325 Mg Tab) 650 mg PO Q4H PRN PRN Reason: Pain MILD(1-3)/Fever >100.5/REDD Amlodipine Besylate (Amlodipine 10 Mg Tab) 10 mg PO QAM [facility] Last Admin: 08/06/20 09:23 Dose: 10 mg Documented by: Aspirin (Aspirin Ec 81 Mg Tab) 81 mg PO QDAY [facility] Last Admin: 08/06/20 09:23 Dose: 81 mg Documented by: Atorvastatin Calcium (Atorvastatin 40 Mg Tab) 80 mg PO QHS [facility] Clopidogrel Bisulfate (Clopidogrel 75 Mg Tab) 75 mg PO QDAY [facility] Last Admin: 08/06/20 09:23 Dose: 75 mg Documented by: Dexamethasone (Dexamethasone 4 Mg/Ml Vial) 8 mg IV Q24HR@2200 [facility] Last Admin: 08/05/20 22:40 Dose: 8 mg Documented by: Enoxaparin Sodium (Enoxaparin 40 Mg/0.4 Ml Inj) 40 mg SUB-Q QDAY@2200 [facility]; Protocol Famotidine (Famotidine 20 Mg Tab) 20 mg PO BID [facility] Last Admin: 04/26/21 09:23 Dose: 20 mg Documented by: Fenofibrate (Fenofibrate 48 Mg Tab) 48 mg PO QDAY [facility] Last Admin: 08/06/20 09:49 Dose: 48 mg Documented by: Furosemide (Furosemide 40 Mg/4 Ml Inj) 40 mg IV 0600,1800 [facility] Last Admin: 08/06/20 06:10 Dose: 40 mg Documented by: Hydralazine HCl (Hydralazine 20 Mg/1 Ml Inj) 10 mg IV Q6HR PRN PRN Reason: hyperten Last Admin: 08/06/20 09:49 Dose: 10 mg Documented by: Hydromorphone HCl (Hydromorphone 1 Mg/1 Ml Inj) 0.5 mg IV Q3H PRN PRN Reason: Pain , Severe (7-10) Last Admin: 08/05/20 23:54 Dose: 0.5 mg Documented by: Azithromycin (Zithromax/Ns) 500 mg in 250 mls @ 250 mls/hr IV Q24HR@2200 [facility] Last Admin: 08/05/20 22:40 Dose: 250 mls/hr Documented by: Ceftriaxone Sodium (Rocephin/Ns 2 Gm/100 Ml) 2 gm in 100 mls @ 200 mls/hr IV Q24HR@2200 [facility]; Protocol Last Admin: 08/05/20 22:41 Dose: 200 mls/hr Documented by: Isosorbide Mononitrate (Isosorbide Mononitrate Er 30 Mg Tab) 30 mg PO DAILY [facility] Last Admin: 08/06/20 09:23 Dose: 30 mg Documented by: Losartan Potassium (Losartan 50 Mg Tab) 100 mg PO QDAY [facility] Last Admin: 08/06/20 09:23 Dose: 100 mg Documented by: Ondansetron HCl (Ondansetron 4 Mg/2 Ml Inj) 4 mg IV Q8H PRN PRN Reason: Nausea And Vomiting Oxycodone/Acetaminophen (Oxycodone /Acetaminophen 5-325mg Tab) 1 tab PO Q6H PRN PRN Reason: Pain, Moderate (4-6) Sodium Chloride (Sodium Chloride 0.9% 10 Ml Flush Syringe) 10 ml IV BID [facility] Last Admin: 08/06/20 09:24 Dose: 10 ml Documented by: Sodium Chloride (Sodium Chloride 0.9% 10 Ml Flush Syringe) 10 ml IV PRN PRN PRN Reason: LINE FLUSH Tramadol HCl (Tramadol 50 Mg Tab) 50 mg PO Q12H PRN PRN Reason: Pain, Moderate (4-6) Review of Systems Cardiovascular: shortness of breath, no chest pain, no orthopnea, no palpitations, no rapid/irregular heart beat, no edema, no syncope, no lig htheadedness Physical Examination Vital Signs Temp Pulse Resp BP Pulse Ox 99 F 96 H 16 182/87 91 08/05/20 15:56 08/05/20 15:56 08/05/20 15:56 08/05/20 15:56 08/05/20 15:56 General appearance: cachectic, other (Frail elderly) HEENT: Positive: PERRL Neck: Positive: neck supple Cardiac: Positive: Reg Rate and Rhythm Lungs: Positive: Decreased Breath Sounds Neuro: Positive: Weakness (Generalized lethargy and fatigue) Abdomen: Positive: Soft Male genitourinary: Positive: deferred Skin: Positive: Clear Extremities: Absent: edema Results 08/05/20 16:25 08/05/20 16:25 Cardiac Enzymes 08/05/20 08/05/20 Range/Units 16:25 16:25 AST 12 (5-40) units/L Lactate Dehydrogenase 225 H (91-180) units/L Lipids 08/05/20 Range/Units 16:25 Triglycerides 93 (2-149) mg/dL Cholesterol 154 (50-199) mg/dL HDL Cholesterol 61 H (40-59) mg/dL Cholesterol/HDL Ratio 2.52 % CBC 08/05/20 Range/Units 16:25 WBC 20.7 H (4.5-11.0) K/mm3 RBC 2.98 L (3.65-5.03) M/mm3 Hgb 7.9 L (11.8-15.2) gm/dl Hct 24.7 L (35.5-45.6) % Plt Count 626 H (140-440) K/mm3 Comprehensive Metabolic Panel 08/05/20 08/05/20 Range/Units 16:25 16:25 Sodium 139 (137-145) mmol/L Potassium 3.7 (3.6-5.0) mmol/L Chloride 106.1 (98-107) mmol/L Carbon Dioxide 24 (22-30) mmol/L BUN 13 (9-20) mg/dL Creatinine 1.0 (0.8-1.3) mg/dL Glucose 112 H 107 H (75-100) mg/dL Calcium 9.0 (8.4-10.2) mg/dL AST 12 (5-40) units/L ALT < 5 L (7-56) units/L Alkaline Phosphatase 54 (35-129) units/L Total Protein 6.9 (6.3-8.2) g/dL Albumin 3.5 L (3.9-5) g/dL EKG interpretations - Telemetry EKG Rhythm: Sinus Rhythm Assessment and Plan - Patient Problems (1) Acute respiratory failure with hypoxia Current Visit: Yes Status: Acute Plan to address problem: Patient from a assisted who presented with shortness of breath, hypoxemia and bilateral pulmonary infiltrates worse on the right. He is under observation for COVID-19 pneumonia. After Covid evaluation, will order an echocardiogram for left ventricular function assessment. Further cardiac evaluation and management will depend on clinical course.
[2020-08-06] MEDS: dexAMETHasone 4 MG/ML VIAL IV SCH (13:14)
[2020-08-06] MEDS: oxyCODONE /ACETAMINOPHEN 5-325MG TAB PO PRN (13:14)
--- NOTE | 2020-08-06 21:21 | Progress Note ---
Assessment and Plan - Patient Problems (1) Acute respiratory failure with hypoxia Current Visit: Yes Status: Acute Plan to address problem: Continue oxygen supplementation and IV antibiotics BiPAP if necessary Coronavirus positive (2) SIRS (systemic inflammatory response syndrome) Current Visit: Yes Status: Acute Plan to address problem: High white count and tachycardia and hypoxia consistent with Sirs (3) Bilateral pneumonia Current Visit: Yes Status: Chronic Plan to address problem: Bilateral pneumonia Treat as community-acquired pneumonia Coronavirus PCR positive (4) Person under investigation for COVID-19 Current Visit: Yes Status: Acute Plan to address problem: Coronavirus PCR positive Continue IV Decadron ID consult requested (5) CHF exacerbation Current Visit: Yes Status: Acute Qualifiers: Heart failure type: combined systolic and diastolic Qualified Code(s): I50.43 - Acute on chronic combined systolic (congestive) and diastolic (congestive) heart failure Plan to address problem: High BNP Lasix 40 every 12 Echocardiogram for ejection fraction Cardiology consult requested (6) Coronary artery disease Current Visit: Yes Status: Acute Plan to address problem: Continue Plavix and isosorbide (7) Hyperlipidemia Current Visit: Yes Status: Acute Plan to address problem: Continue statins and fenofibrate (8) Hypertension Current Visit: Yes Status: Chronic Qualifiers: Hypertension type: essential hypertension Qualified Code(s): I10 - Essential (primary) hypertension Plan to address problem: Continue antihypertensives (9) Anemia Current Visit: Yes Status: Chronic Qualifiers: Anemia type: iron deficiency Plan to address problem: Probably iron deficient but will check iron and folic acid and B12 (10) GERD (gastroesophageal reflux disease) Current Visit: Yes Status: Chronic Qualifiers: Esophagitis presence: without esophagitis Qualified Code(s): K21.9 - Gastro-esophageal reflux disease without esophagitis Plan to address problem: On ranitidine (11) DVT prophylaxis Current Visit: Yes Status: Acute Plan to address problem: On Lovenox and GI prophylaxis Subjective Date of service: 08/06/20 Principal diagnosis: Covid pneumonia, acute respiratory failure with hypoxia Interval history: 75-year-old male with history of coronary artery disease, hyperlipidemia, congestive heart failure and hypertension comes in from [facility] from increasing shortness of breath and low oxygen saturations. Patient has also history of chronic kidney disease. Patient was recently diagnosed with a pneumonia at the [facility] facility. Patient apparently refused t ransportation initially. Patient was treated with antibiotics at the snf patient's oxygen saturations are 78% at the snf which improved with nasal cannula oxygen. Cough productive of mucoid sputum. No exposure to coronavirus. Day #2 Patient tested positive for coronavirus ID consult appreciated Objective - Constitutional Vitals: Vital Signs - 12hr 08/06/20 08/06/20 09:49 11:03 Temperature 98.6 F Pulse Rate 98 H 97 H Respiratory 20 Rate Blood Pressure 189/101 Blood Pressure 185/105 [Left] O2 Sat by Pulse 98 Oximetry General appearance: Present: mild distress, well-nourished - EENT Eyes: PERRL, EOM intact ENT: hearing intact, clear oral mucosa Ears: bilateral: normal - Neck Neck: supple, normal ROM - Respiratory Respiratory effort: normal Respiratory: bilateral: CTA - Breasts Breasts: normal - Cardiovascular Heart rate: 78 Rhythm: regular Heart Sounds: Present: S1 & S2. Absent: gallop, rub Extremities: pulses intact, No edema, normal color, Full ROM - Gastrointestinal General gastrointestinal: Present: soft, non-tender, non-distended, normal bowel sounds - Genitourinary Male genitourinary: normal - Integumentary Integumentary: clear, warm, dry - Musculoskeletal Musculoskeletal: 1, strength equal bilaterally - Neurologic Neurologic: moves all extremities - Psychiatric Psychiatric: memory intact, appropriate mood/affect, intact judgment & insight - Labs CBC & Chem 7: 08/05/20 16:25 08/05/20 16:25 Labs: Abnormal lab results 08/05/20 08/05/20 08/05/20 Range/Units 10:32 16:25 23:23 Lymphocytes % (Manual) 2.0 L (13.4-35.0) % Seg Neutrophils # Man 19.3 H (1.8-7.7) K/mm3 Lymphocytes # (Manual) 0.4 L (1.2-5.4) K/mm3 Monocytes # (Manual) 1.0 H (0.0-0.8) K/mm3 Hemoglobin A1c (4-6) % Iron 21 L (49-181) ug/dL TIBC 232 L (250-450) mcg/dL Coronavirus (PCR) Positive A (Negative) 08/06/20 Range/Units 06:55 Lymphocytes % (Manual) (13.4-35.0) % Seg Neutrophils # Man (1.8-7.7) K/mm3 Lymphocytes # (Manual) (1.2-5.4) K/mm3 Monocytes # (Manual) (0.0-0.8) K/mm3 Hemoglobin A1c < 4.0 L (4-6) % Iron (49-181) ug/dL TIBC (250-450) mcg/dL Coronavirus (PCR) (Negative) HEART Score - HEART Score Troponin: Troponin T 0.127 ng/mL (0.00-0.029) H* 08/05/20 16:25
[2020-08-06] MEDS: ENOXAPARIN 40 MG/0.4 ML INJ SUB-Q SCH (21:31)
[2020-08-06] MEDS: AZITHROMYCIN/NS 500 MG/250 ML 500 MG/250 ML BAG IV SCH (21:32)
[2020-08-06] MEDS: cefTRIAXone/NS 2 GM/100 ML 2 GM/100 ML BAG IV SCH (21:49)
[2020-08-06] MEDS ORDERED: ENOXAPARIN 40 MG/0.4 ML INJ SUB-Q SCH (22:00)
[2020-08-07] MEDS: hydrALAZINE 20 MG/1 ML INJ IV PRN (00:22)
[2020-08-07] MEDS: FUROSEMIDE 40 MG/4 ML INJ IV SCH ×2 (05:04→17:54)
[2020-08-07] MEDS: oxyCODONE /ACETAMINOPHEN 5-325MG TAB PO PRN ×2 (05:43→20:05)
--- NOTE | 2020-08-07 08:49 | Progress Note ---
Assessment and Plan Acute hypoxic respiratory failure COVID-19 infection Anemia 02/2018 Echocardiogram reported normal left ventricular systolic function, ej ection fraction 55-60%. There was mild aortic stenosis. 07/2017 MPI -normal perfusion scan. Conservative cardiac management. Subjective Date of service: 08/07/20 Principal diagnosis: Covid pneumonia, acute respiratory failure with hypoxia Interval history: No cardiac complaints. No distress noted. Objective Vital Signs Temp Pulse Resp BP BP Pulse Ox 08/07/20 04:42 85 146/83 98 08/07/20 01:11 150/84 08/06/20 22:23 98.6 F 116 H 20 168/93 98 08/06/20 18:27 98.7 F 20 08/06/20 11:03 98.6 F 97 H 20 185/105 98 08/06/20 10:07 90 100 08/06/20 09:49 98 H 189/101 08/06/20 09:40 97 H 100 - Physical Examination Narrative exam: Deferred due to isolation protocol. General: No Apparent Distress
[2020-08-07] MEDS: FENOFIBRATE 48 MG TAB PO SCH (09:09)
[2020-08-07] MEDS: dexAMETHasone 4 MG/ML VIAL IV SCH (09:09)
[2020-08-07] MEDS: amLODIPine 10 MG TAB PO SCH (09:09)
[2020-08-07] MEDS: ASPIRIN EC 81 MG TAB PO SCH (09:10)
[2020-08-07] MEDS: CLOPIDOGREL 75 MG TAB PO SCH (09:10)
[2020-08-07] MEDS: LOSARTAN 50 MG TAB PO SCH (09:10)
[2020-08-07] MEDS: FAMOTIDINE 20 MG TAB PO SCH ×2 (09:10→23:18)
--- NOTE | 2020-08-07 20:46 | Progress Note ---
Assessment and Plan - Patient Problems (1) Coronavirus infection Current Visit: Yes Status: Acute Plan to address problem: Coronavirus protocol: Contact precaution, isolation precautions, IV steroid therapy, IV antibiotic therapy, supportive care. Infectious disease service consulted. Continue medical management. (2) Vascular dementia Current Visit: Yes Status: Acute Qualifiers: Dementia behavioral disturbance: without behavioral disturbance Qualified Code(s): F01.50 - Vascular dementia without behavioral disturbance Plan to address problem: Verbal prompting, verbal redirection, benzodiazepine therapy as clinically indicated. (3) Cerebral atherosclerosis Current Visit: Yes Status: Acute Plan to address problem: Risk factor reduction, supportive care, antiplatelet therapy as clinically ind icated. (4) Acute respiratory failure with hypoxia Current Visit: Yes Status: Acute Plan to address problem: Supplemental oxygen, pulse oximetry, nebulizer therapy, proposition while in bed, supportive care. (5) CHF exacerbation Current Visit: Yes Status: Acute Qualifiers: Heart failure type: combined systolic and diastolic Qualified Code(s): I50.43 - Acute on chronic combined systolic (congestive) and diastolic (congestive) heart failure Plan to address problem: Cardiology team consulted, continue conservative medical management as per cardiology team recommendations. (6) Hyperlipidemia Current Visit: Yes Status: Acute Plan to address problem: Low-cholesterol diet, statin therapy as clinically indicated. (7) DVT prophylaxis Current Visit: Yes Status: Acute Plan to address problem: SCD to bilateral lower extremities while in bed, prophylactic anticoagulation (8) Advance care planning Current Visit: Yes Status: Acute Plan to address problem: Disease education conducted, care plan discussed, prognosis discussed, patient is full code, +30 minutes. History Interval history: 75 YO Male HD #3 with Coronavirus Infection, Diastolic CHF, Vascular Dementia, Cerebral Atherosclerosis. Patient resting comfortably in bed. Patient has diminished cognition. No reported nursing events. Patient denies pain. Hospitalist Physical - Constitutional Vitals: Temp Pulse Resp BP Pulse Ox 98.2 F 90 18 147/75 94 08/07/20 15:41 08/07/20 15:41 08/07/20 15:41 08/07/20 15:41 08/07/20 15:41 General appearance: Present: mild distress, well-nourished - EENT Eyes: Present: PERRL ENT: hearing intact - Neck Neck: Present: supple - Respiratory Respiratory: bilateral: diminished, rhonchi - Cardiovascular Rhythm: regular Heart Sounds: Present: S1 & S2 - Extremities Extremities: no ischemia Peripheral Pulses: within normal limits - Abdominal General gastrointestinal: soft, non-tender, non-distended - Integumentary Integumentary: Present: clear, dry - Psychiatric Psychiatric: cooperative - Neurologic Neurologic: CNII-XII intact HEART Score - HEART Score Troponin: Troponin T 0.127 ng/mL (0.00-0.029) H* 08/05/20 16:25 Results - Labs CBC & Chem 7: 08/05/20 16:25 08/05/20 16:25 Labs: Laboratory Last Values WBC 20.7 K/mm3 (4.5-11.0) H 08/05/20 16:25 RBC 2.98 M/mm3 (3.65-5.03) L 08/05/20 16:25 Hgb 7.9 gm/dl (11.8-15.2) L 08/05/20 16:25 Hct 24.7 % (35.5-45.6) L 08/05/20 16:25 MCV 83 fl (84-94) L 08/05/20 16:25 MCH 27 pg (28-32) L 08/05/20 16:25 MCHC 32 % (32-34) 08/05/20 16:25 RDW 18.0 % (13.2-15.2) H 08/05/20 16:25 Plt Count 626 K/mm3 (140-440) H 08/05/20 16:25 Add Manual Diff Complete 08/05/20 16:25 Total Counted 100 08/05/20 16:25 Seg Neutrophils % Timber Management Assistant 08/05/20 16:25 Lymphocytes % (Manual) 2.0 % (13.4-35.0) L 08/05/20 16:25 Monocytes % (Manual) 5.0 % (0.0-7.3) 08/05/20 16:25 Nucleated RBC % Not Reportable 08/05/20 16:25 Seg Neutrophils # Man 19.3 K/mm3 (1.8-7.7) H 08/05/20 16:25 Band Neutrophils # 0.0 K/mm3 08/05/20 16:25 Lymphocytes # (Manual) 0.4 K/mm3 (1.2-5.4) L 08/05/20 16:25 Abs React Lymphs (Man) 0.0 K/mm3 08/05/20 16:25 Monocytes # (Manual) 1.0 K/mm3 (0.0-0.8) H 08/05/20 16:25 Eosinophils # (Manual) 0.0 K/mm3 (0.0-0.4) 08/05/20 16:25 Basophils # (Manual) 0.0 K/mm3 (0.0-0.1) 08/05/20 16:25 Metamyelocytes # 0.0 K/mm3 08/05/20 16:25 Myelocytes # 0.0 K/mm3 08/05/20 16:25 Promyelocytes # 0.0 K/mm3 08/05/20 16:25 Blast Cells # 0.0 K/mm3 08/05/20 16:25 WBC Morphology Not Reportable 08/05/20 16:25 Hypersegmented Neuts Not Reportable 08/05/20 16:25 Hyposegmented Neuts Not Reportable 08/05/20 16:25 Hypogranular Neuts Not Reportable 08/05/20 16:25 Smudge Cells Not Reportable 08/05/20 16:25 Toxic Granulation Not Reportable 08/05/20 16:25 Toxic Vacuolation Not Reportable 08/05/20 16:25 Dohle Bodies Not Reportable 08/05/20 16:25 Pelger-Huet Anomaly Not Reportable 08/05/20 16:25 Cheri Rods Not Reportable 08/05/20 16:25 Platelet Estimate Consistent w auto 08/05/20 16:25 Clumped Platelets Not Reportable 08/05/20 16:25 Plt Clumps, EDTA Not Reportable 08/05/20 16:25 Large Platelets Rare 08/05/20 16:25 Giant Platelets Not Reportable 08/05/20 16:25 Platelet Satelliting Not Reportable 08/05/20 16:25 Plt Morphology Comment Not Reportable 08/05/20 16:25 RBC Morphology Not Reportable 08/05/20 16:25 Dimorphic RBCs Not Reportable 08/05/20 16:25 Polychromasia Not Reportable 08/05/20 16:25 Hypochromasia Not Reportable 08/05/20 16:25 Poikilocytosis Not Reportable 08/05/20 16:25 Anisocytosis Not Reportable 08/05/20 16:25 Microcytosis Not Reportable 08/05/20 16:25 Macrocytosis Not Reportable 08/05/20 16:25 Spherocytes Not Reportable 08/05/20 16:25 Pappenheimer Bodies Not Reportable 08/05/20 16:25 Sickle Cells Not Reportable 08/05/20 16:25 Target Cells Not Reportable 08/05/20 16:25 Tear Drop Cells Rare 08/05/20 16:25 Ovalocytes Rare 08/05/20 16:25 Helmet Cells Rare 08/05/20 16:25 Blackwell-Juliaetta Bodies Not Reportable 08/05/20 16:25 [place] Rings Not Reportable 08/05/20 16:25 Olya Cells Not Reportable 08/05/20 16:25 Bite Cells Not Reportable 08/05/20 16:25 Crenated Cell Not Reportable 08/05/20 16:25 Elliptocytes Not Reportable 08/05/20 16:25 Acanthocytes (Spur) Not Reportable 08/05/20 16:25 Rouleaux Not Reportable 08/05/20 16:25 Hemoglobin C Crystals Not Reportable 08/05/20 16:25 Schistocytes Not Reportable 08/05/20 16:25 Malaria parasites Not Reportable 08/05/20 16:25 Mc Bodies Not Reportable 08/05/20 16:25 Hem Pathologist Commnt No 08/05/20 16:25 D-Dimer 1218.20 ng/mlDDU (0-234) H 08/05/20 16:25 Sodium 139 mmol/L (137-145) 08/05/20 16:25 Potassium 3.7 mmol/L (3.6-5.0) 08/05/20 16:25 Chloride 106.1 mmol/L (98-107) 08/05/20 16:25 Carbon Dioxide 24 mmol/L (22-30) 08/05/20 16:25 Anion Gap 13 mmol/L 08/05/20 16:25 BUN 13 mg/dL (9-20) 08/05/20 16:25 Creatinine 1.0 mg/dL (0.8-1.3) 08/05/20 16:25 Estimated GFR > 60 ml/min 08/05/20 16:25 BUN/Creatinine Ratio 13 % 08/05/20 16:25 Glucose 107 mg/dL (75-100) H 08/05/20 16:25 Glucose 112 mg/dL (75-100) H 08/05/20 16:25 Hemoglobin A1c < 4.0 % (4-6) L 08/06/20 06:55 Lactic Acid 0.50 mmol/L (0.7-2.0) L 08/05/20 19:51 Calcium 9.0 mg/dL (8.4-10.2) 08/05/20 16:25 Iron 21 ug/dL (49-181) L 08/05/20 23:23 TIBC 232 mcg/dL (250-450) L 08/05/20 23:23 % Saturation 9.05 % 08/05/20 23:23 Transferrin 189 mg/dl (180-329) 08/05/20 23:23 Ferritin 817.3 ng/mL (30.0-300.0) H 08/05/20 16:25 Total Bilirubin 0.30 mg/dL (0.1-1.2) 08/05/20 16:25 AST 12 units/L (5-40) 08/05/20 16:25 ALT < 5 units/L (7-56) L 08/05/20 16:25 Alkaline Phosphatase 54 units/L (35-129) 08/05/20 16:25 Lactate Dehydrogenase 225 units/L (91-180) H 08/05/20 16:25 Troponin T 0.127 ng/mL (0.00-0.029) H* 08/05/20 16:25 C-Reactive Protein 8.30 mg/dL (0.00-1.30) H 08/05/20 16:25 NT-Pro-B Natriuret Pep > 41470 pg/mL (0-900) H 08/05/20 16:25 Total Protein 6.9 g/dL (6.3-8.2) 08/05/20 16:25 Albumin 3.5 g/dL (3.9-5) L 08/05/20 16:25 Albumin/Globulin Ratio 1.0 % 08/05/20 16:25 Triglycerides 93 mg/dL (2-149) 08/05/20 16:25 Cholesterol 154 mg/dL (50-199) 08/05/20 16:25 LDL Cholesterol Direct 72 mg/dL (50-130) 08/05/20 16:25 HDL Cholesterol 61 mg/dL (40-59) H 08/05/20 16:25 Cholesterol/HDL Ratio 2.52 % 08/05/20 16:25 Vitamin B12 753.2 pg/mL (211-911) 08/05/20 23:23 Procalcitonin 0.31 ng/mL (<0.15) 08/05/20 16:25 Coronavirus (PCR) Positive (Negative) A 08/05/20 10:32 Microbiology: Microbiology 08/05/20 16:25 Peripheral/Venous Blood Culture - Preliminary NO GROWTH AFTER 48 HOURS 08/05/20 16:17 Peripheral/Venous Blood Culture - Preliminary NO GROWTH AFTER 48 HOURS San/IV: Voiding Method Condom Catheter Active Medications - Current Medications Current Medications: Generic Name Dose Route Start Last Admin Trade Name Freq PRN Reason Stop Dose Admin Acetaminophen 650 mg 08/05/20 22:08 Acetaminophen 325 Mg Tab PO Q4H PRN Pain MILD(1-3)/Fever >100.5/REDD Amlodipine Besylate 10 mg 08/06/20 10:00 08/07/20 09:09 Amlodipine 10 Mg Tab PO 10 mg QAM DENISE Administration Aspirin 81 mg 08/06/20 10:00 08/07/20 09:10 Aspirin Ec 81 Mg Tab PO 81 mg QDAY DENISE Administration Atorvastatin Calcium 80 mg 08/06/20 22:00 08/06/20 21:48 Atorvastatin 40 Mg Tab PO 80 mg QHS DENISE Administration Clopidogrel Bisulfate 75 mg 08/06/20 10:00 08/07/20 09:10 Clopidogrel 75 Mg Tab PO 75 mg QDAY DENISE Administration Dexamethasone 8 mg 08/06/20 14:00 08/07/20 09:09 Dexamethasone 4 Mg/Ml Vial IV 08/14/20 10:01 8 mg DAILY DENISE Administration Enoxaparin Sodium 40 mg 08/06/20 22:00 08/06/20 21:31 Enoxaparin 40 Mg/0.4 Ml Inj SUB-Q 40 mg QDAY@2200 DENISE Administration Protocol Famotidine 20 mg 08/05/20 22:15 08/07/20 09:10 Famotidine 20 Mg Tab PO 20 mg BID DENISE Administration Fenofibrate 48 mg 08/06/20 10:00 08/07/20 09:09 Fenofibrate 48 Mg Tab PO 48 mg QDAY DENISE Administration Furosemide 40 mg 08/06/20 06:00 08/07/20 17:54 Furosemide 40 Mg/4 Ml Inj IV 40 mg 0600,1800 DENISE Administration Hydralazine HCl 10 mg 08/05/20 21:09 08/07/20 00:22 Hydralazine 20 Mg/1 Ml Inj IV 10 mg Q6HR PRN Administration hyperten Hydromorphone HCl 0.5 mg 08/05/20 22:25 08/05/20 23:54 Hydromorphone 1 Mg/1 Ml Inj IV 0.5 mg Q3H PRN Administration Pain , Severe (7-10) Azithromycin 500 mg in 250 mls @ 250 mls/hr 08/05/20 23:00 08/06/20 21:32 Zithromax/Ns IV 08/09/20 22:59 250 mls/hr Q24HR@2200 DENISE Administration Ceftriaxone Sodium 2 gm in 100 mls @ 200 mls/hr 08/05/20 23:00 08/06/20 21:49 Rocephin/Ns 2 Gm/100 Ml IV 08/09/20 23:59 200 mls/hr Q24HR@2200 DENISE Administration Protocol Isosorbide Mononitrate 30 mg 08/06/20 10:00 08/07/20 09:10 Isosorbide Mononitrate Er 30 Mg Tab PO 30 mg DAILY DENISE Administration Losartan Potassium 100 mg 08/06/20 10:00 08/07/20 09:10 Losartan 50 Mg Tab PO 100 mg QDAY DENISE Administration Ondansetron HCl 4 mg 08/05/20 22:25 Ondansetron 4 Mg/2 Ml Inj IV Q8H PRN Nausea And Vomiting Oxycodone/Acetaminophen 1 tab 08/05/20 22:25 08/07/20 20:05 Oxycodone /Acetaminophen 5-325mg Tab PO 1 tab Q6H PRN Administration Pain, Moderate (4-6) Sodium Chloride 10 ml 08/06/20 10:00 08/07/20 09:14 Sodium Chloride 0.9% 10 Ml Flush Syringe IV 10 ml BID DENISE Administration Sodium Chloride 10 ml 08/05/20 22:25 Sodium Chloride 0.9% 10 Ml Flush Syringe IV PRN PRN LINE FLUSH Tramadol HCl 50 mg 08/05/20 22:08 Tramadol 50 Mg Tab PO Q12H PRN Pain, Moderate (4-6) Nutrition/Malnutrition Assess - Dietary Evaluation Nutrition/Malnutrition Findings: Nutrition Notes Start: 08/06/20 12:34 Freq: Status: Active Protocol: Document 08/06/20 12:34 (Rec: 08/06/20 12:43 [email or web address]) Nutrition Notes Need for Assessment generated from: senior instructor Initial or Follow up Assessment Current Diagnosis Coronary Artery Disease, Hypertension,Heart Failure, Respiratory Failure, Hyperlipidemia Other Pertinent Diagnosis SIRS, COVID, pneu Current Diet Cardiac Labs/Tests Reviewed Pertinent Medications Lasix Height 6 ft Weight 67.54 kg [place] Body Weight (kg) 80.90 BMI 20.2 Subjective/Other Information RN screen for skin risk. Carlitos score 14. Pt with scaral pressure ulcer. Per RN, pt unable to answer phone and does not eat breakfast. Minimum of two criteria No physical signs of malnutrition #1 Nutrition Diagnosis Predicted suboptimal energy intake Etiology unknown As Evidenced by Signs and Symptoms pt refuses breakfast Is patient on ventilator? No Is Patient Ambulatory and/or Out of Bed No REE-([place]-[facility]. Jeor-confined to bed) 7030.224 Calculation [facility] Additional Notes Protein: (1.25-1.5g/kg) 84- 101g Fluid: 1ml/kcal or per MD Nutrition Intervention Change Diet Order: Continue Add Supplement/Snack (indicate name/kcal Ensure Enlive daily /protein ) Provides kCal: 350 Provides Protein (gm) 20 Goal #1 Meet at least 75% of protein and energy needs via PO and ONS intakes Anticipated Discharge Needs: Cardiac with ONS PRN Follow-Up By: 08/08/20 Additional Comments FU for intakes and ONS tolerance
[2020-08-07] MEDS: AZITHROMYCIN/NS 500 MG/250 ML 500 MG/250 ML BAG IV SCH (23:17)
[2020-08-07] MEDS: cefTRIAXone/NS 2 GM/100 ML 2 GM/100 ML BAG IV SCH (23:17)
[2020-08-07] MEDS: ENOXAPARIN 40 MG/0.4 ML INJ SUB-Q SCH (23:18)
[2020-08-08] MEDS: FUROSEMIDE 40 MG/4 ML INJ IV SCH ×2 (06:28→17:44)
[2020-08-08] MEDS: FENOFIBRATE 48 MG TAB PO SCH (09:08)
[2020-08-08] MEDS: amLODIPine 10 MG TAB PO SCH (09:09)
[2020-08-08] MEDS: CLOPIDOGREL 75 MG TAB PO SCH (09:10)
[2020-08-08] MEDS: LOSARTAN 50 MG TAB PO SCH (09:10)
--- NOTE | 2020-08-08 09:17 | Progress Note ---
Assessment and Plan Atrial fibrillation, new onset Nausea with vomiting Acute hypoxic respiratory failure COVID-19 infection Anemia 02/2018 Echocardiogram reported normal left ventricular systolic function, ejection fraction 55-60%. There was mild aortic stenosis. 07/2017 MPI -normal perfusion scan. Due to nausea with vomiting, will use intravenous amiodarone for management of new onset atrial fibrillation. Check a TSH and magnesium level. Will consider oral anticoagulation for stroke prophylaxis before discharge. Subjective Date of service: 08/08/20 Principal diagnosis: Covid pneumonia, acute respiratory failure with hypoxia Interval history: Notified by the nurse that the patient had a change in rhythm. It appears the patient is in rapid atrial fibrillation. Patient reports nausea with vomiting over the last few hours. Admits to palpitations. Denies dizziness. Will order an 12-lead ECG. Objective Vital Signs Temp Pulse Resp BP BP Pulse Ox 08/08/20 09:08 146 H 175/122 99 08/08/20 06:00 97.9 F 89 18 96/59 100 08/07/20 23:13 98.0 F 89 17 155/79 93 08/07/20 15:41 98.2 F 90 18 147/75 94 08/07/20 11:15 98.4 F 85 18 159/88 99 - Physical Examination Narrative exam: Deferred due to isolation protocol. General: No Apparent Distress Cardiac: Positive: irregularly irregular Extremities: Absent: edema
[2020-08-08] MEDS: ASPIRIN EC 81 MG TAB PO SCH (09:39)
[2020-08-08] MEDS: dexAMETHasone 4 MG/ML VIAL IV SCH (09:39)
[2020-08-08] MEDS: FAMOTIDINE 20 MG TAB PO SCH ×2 (09:40→22:22)
[2020-08-08] MEDS ORDERED: AMIODARONE 150 MG in DEXTROSE 5% IN WATER 97 ML IV ONE (11:00)
[2020-08-08] MEDS: hydrALAZINE 20 MG/1 ML INJ IV PRN ×2 (11:31→15:07)
[2020-08-08] MEDS: ONDANSETRON 4 MG/2 ML INJ IV PRN ×2 (11:32→22:14)
[2020-08-08] MEDS: AMIODARONE 900 MG in DEXTROSE 5% IN WATER 482 ML IV SCH (12:15)
[2020-08-08] MEDS: METOPROLOL TARTRATE 5 MG/5 ML INJ IV PRN ×2 (15:07→22:15)
[2020-08-08 17:43] LABS: Hemoglobin 7.8 gm/dl (11.8-15.2); Mean Corpuscular HGB Conc 33 % (32-34); Mean Corpuscular Volume 82 fl (84-94); Platelet Count 656 K/mm3 (140-440); Red Blood Count 2.94 M/mm3 (3.65-5.03); Red Cell Distribution Width 18.2 % (13.2-15.2)
[2020-08-08 18:56] LABS: Large Platelets Rare; Platelet Clumps Rare; RBC Morphology Normal; Total Cells Counted 100
[2020-08-08 18:57] LABS: Helmet Cells Rare; Ovalocytes Rare; Tear Drop Cells Rare
--- NOTE | 2020-08-08 21:07 | Progress Note ---
Assessment and Plan - Patient Problems (1) Atrial fibrillation with rapid ventricular response Current Visit: Yes Status: Acute Plan to address problem: Cardiology team consulted, IV rate control therapy, continue medical management, anticoagulation as per cardiology team. (2) Coronavirus infection Current Visit: Yes Status: Acute Plan to address problem: Coronavirus protocol: Contact precaution, isolation precautions, IV steroid therapy, IV antibiotic therapy, supportive care. Infectious disease service consulted. Continue medical management. (3) Vascular dementia Current Visit: Yes Status: Acute Qualifiers: Dementia behavioral disturbance: without behavioral disturbance Qualified Code(s): F01.50 - Vascular dementia without behavioral disturbance Plan to address problem: Verbal prompting, verbal redirection, benzodiazepine therapy as clinically indicated. (4) Cerebral atherosclerosis Current Visit: Yes Status: Acute Plan to address problem: Risk factor reduction, supportive care, antiplatelet therapy as clinically indicated. (5) Acute respiratory failure with hypoxia Current Visit: Yes Status: Acute Plan to address problem: Supplemental oxygen, pulse oximetry, nebulizer therapy, proposition while in bed, supportive care. (6) CHF exacerbation Current Visit: Yes Status: Acute Qualifiers: Heart failure type: combined systolic and diastolic Qualified Code(s): I5 0.43 - Acute on chronic combined systolic (congestive) and diastolic (congestive) heart failure Plan to address problem: Cardiology team consulted, continue conservative medical management as per cardiology team recommendations. (7) Hyperlipidemia Current Visit: Yes Status: Acute Plan to address problem: Low-cholesterol diet, statin therapy as clinically indicated. (8) DVT prophylaxis Current Visit: Yes Status: Acute Plan to address problem: SCD to bilateral lower extremities while in bed, prophylactic anticoagulation (9) Advance care planning Current Visit: Yes Status: Acute Plan to address problem: Disease education conducted, care plan discussed, prognosis discussed, patient is full code, +30 minutes. History Interval history: 75 YO Male HD #4 with Coronavirus Infection, Diastolic CHF, Vascular Dementia, Cerebral Atherosclerosis. Patient resting comfortably in bed. Patient has diminished cognition. No reported nursing events. Patient denies pain. Pt developed Atrial fib with RVR and was initiated on antiarrythmic therapy. Pt transferred to [facility]. Hospitalist Physical - Constitutional Vitals: Temp Pulse Resp BP Pulse Ox 98.4 F 113 H 18 175/61 97 08/08/20 17:41 08/08/20 19:34 08/08/20 19:34 08/08/20 19:34 08/08/20 19:34 General appearance: Present: mild distress, well-nourished - EENT Eyes: Present: PERRL, EOM intact ENT: hearing intact - Neck Neck: Present: supple - Respiratory Respiratory: bilateral: CTA - Cardiovascular Rhythm: irregularly irregular - Extremities Extremities: no ischemia Peripheral Pulses: within normal limits - Abdominal General gastrointestinal: soft, non-tender, non-distended - Integumentary Integumentary: Present: clear, dry - Psychiatric Psychiatric: appropriate mood/affect, cooperative - Neurologic Neurologic: CNII-XII intact HEART Score - HEART Score Troponin: Troponin T 0.127 ng/mL (0.00-0.029) H* 08/05/20 16:25 Results - Labs CBC & Chem 7: 08/10/20 12:07 08/10/20 12:07 Labs: Laboratory Last Values WBC 13.9 K/mm3 (4.5-11.0) H 08/08/20 17:08 RBC 2.94 M/mm3 (3.65-5.03) L 08/08/20 17:08 Hgb 7.8 gm/dl (11.8-15.2) L 08/08/20 17:08 Hct 24.0 % (35.5-45.6) L 08/08/20 17:08 MCV 82 fl (84-94) L 08/08/20 17:08 MCH 27 pg (28-32) L 08/08/20 17:08 MCHC 33 % (32-34) 08/08/20 17:08 RDW 18.2 % (13.2-15.2) H 08/08/20 17:08 Plt Count 656 K/mm3 (140-440) H 08/08/20 17:08 Add Manual Diff Complete 08/08/20 17:08 Total Counted 100 08/08/20 17:08 Seg Neutrophils % Strap Cutting Machine Operator 08/08/20 17:08 Seg Neuts % (Manual) 95.0 % (40.0-70.0) H 08/08/20 17:08 Lymphocytes % (Manual) 3.0 % (13.4-35.0) L 08/08/20 17:08 Monocytes % (Manual) 2.0 % (0.0-7.3) 08/08/20 17:08 Nucleated RBC % Not Reportable 08/08/20 17:08 Seg Neutrophils # Man 13.2 K/mm3 (1.8-7.7) H 08/08/20 17:08 Band Neutrophils # 0.0 K/mm3 08/08/20 17:08 Lymphocytes # (Manual) 0.4 K/mm3 (1.2-5.4) L 08/08/20 17:08 Abs React Lymphs (Man) 0.0 K/mm3 08/08/20 17:08 Monocytes # (Manual) 0.3 K/mm3 (0.0-0.8) 08/08/20 17:08 Eosinophils # (Manual) 0.0 K/mm3 (0.0-0.4) 08/08/20 17:08 Basophils # (Manual) 0.0 K/mm3 (0.0-0.1) 08/08/20 17:08 Metamyelocytes # 0.0 K/mm3 08/08/20 17:08 Myelocytes # 0.0 K/mm3 08/08/20 17:08 Promyelocytes # 0.0 K/mm3 08/08/20 17:08 Blast Cells # 0.0 K/mm3 08/08/20 17:08 WBC Morphology Not Reportable 08/08/20 17:08 Hypersegmented Neuts Not Reportable 08/08/20 17:08 Hyposegmented Neuts Not Reportable 08/08/20 17:08 Hypogranular Neuts Not Reportable 08/08/20 17:08 Smudge Cells Not Reportable 08/08/20 17:08 Toxic Granulation Not Reportable 08/08/20 17:08 Toxic Vacuolation Not Reportable 08/08/20 17:08 Dohle Bodies Not Reportable 08/08/20 17:08 Pelger-Huet Anomaly Not Reportable 08/08/20 17:08 Cheri Rods Not Reportable 08/08/20 17:08 Platelet Estimate Not Reportable 08/08/20 17:08 Clumped Platelets Rare 08/08/20 17:08 Plt Clumps, EDTA Not Reportable 08/08/20 17:08 Large Platelets Rare 08/08/20 17:08 Giant Platelets Not Reportable 08/08/20 17:08 Platelet Satelliting Not Reportable 08/08/20 17:08 Plt Morphology Comment Not Reportable 08/08/20 17:08 RBC Morphology Normal 08/08/20 17:08 Dimorphic RBCs Not Reportable 08/08/20 17:08 Polychromasia Not Reportable 08/08/20 17:08 Hypochromasia Not Reportable 08/08/20 17:08 Poikilocytosis Not Reportable 08/08/20 17:08 Anisocytosis Not Reportable 08/08/20 17:08 Microcytosis Not Reportable 08/08/20 17:08 Macrocytosis Not Reportable 08/08/20 17:08 Spherocytes Not Reportable 08/08/20 17:08 Pappenheimer Bodies Not Reportable 08/08/20 17:08 Sickle Cells Not Reportable 08/08/20 17:08 Target Cells Not Reportable 08/08/20 17:08 Tear Drop Cells Rare 08/08/20 17:08 Ovalocytes Rare 08/08/20 17:08 Helmet Cells Rare 08/08/20 17:08 [place] Bodies Not Reportable 08/08/20 17:08 [place] Rings Not Reportable 08/08/20 17:08 Olya Cells Not Reportable 08/08/20 17:08 Bite Cells Not Reportable 08/08/20 17:08 Crenated Cell Not Reportable 08/08/20 17:08 Elliptocytes Not Reportable 08/08/20 17:08 Acanthocytes (Spur) Not Reportable 08/08/20 17:08 Rouleaux Not Reportable 08/08/20 17:08 Hemoglobin C Crystals Not Reportable 08/08/20 17:08 Schistocytes Not Reportable 08/08/20 17:08 Malaria parasites Not Reportable 08/08/20 17:08 Mc Bodies Not Reportable 08/08/20 17:08 Hem Pathologist Commnt No 08/08/20 17:08 D-Dimer 1218.20 ng/mlDDU (0-234) H 08/05/20 16:25 Sodium 139 mmol/L (137-145) 08/05/20 16:25 Potassium 3.7 mmol/L (3.6-5.0) 08/05/20 16:25 Chloride 106.1 mmol/L (98-107) 08/05/20 16:25 Carbon Dioxide 24 mmol/L (22-30) 08/05/20 16:25 Anion Gap 13 mmol/L 08/05/20 16:25 BUN 13 mg/dL (9-20) 08/05/20 16:25 Creatinine 1.0 mg/dL (0.8-1.3) 08/05/20 16:25 Estimated GFR > 60 ml/min 08/05/20 16:25 BUN/Creatinine Ratio 13 % 08/05/20 16:25 Glucose 107 mg/dL (75-100) H 08/05/20 16:25 Glucose 112 mg/dL (75-100) H 08/05/20 16:25 POC Glucose 132 mg/dL (70-105) H 08/08/20 17:08 Hemoglobin A1c < 4.0 % (4-6) L 08/06/20 06:55 Lactic Acid 0.50 mmol/L (0.7-2.0) L 08/05/20 19:51 Calcium 9.0 mg/dL (8.4-10.2) 08/05/20 16:25 Iron 21 ug/dL (49-181) L 08/05/20 23:23 TIBC 232 mcg/dL (250-450) L 08/05/20 23:23 % Saturation 9.05 % 08/05/20 23:23 Transferrin 189 mg/dl (180-329) 08/05/20 23:23 Ferritin 817.3 ng/mL (30.0-300.0) H 08/05/20 16:25 Total Bilirubin 0.30 mg/dL (0.1-1.2) 08/05/20 16:25 AST 12 units/L (5-40) 08/05/20 16:25 ALT < 5 units/L (7-56) L 08/05/20 16:25 Alkaline Phosphatase 54 units/L (35-129) 08/05/20 16:25 Lactate Dehydrogenase 225 units/L (91-180) H 08/05/20 16:25 Troponin T 0.127 ng/mL (0.00-0.029) H* 08/05/20 16:25 C-Reactive Protein 8.30 mg/dL (0.00-1.30) H 08/05/20 16:25 NT-Pro-B Natriuret Pep > 04442 pg/mL (0-900) H 08/05/20 16:25 Total Protein 6.9 g/dL (6.3-8.2) 08/05/20 16:25 Albumin 3.5 g/dL (3.9-5) L 08/05/20 16:25 Albumin/Globulin Ratio 1.0 % 08/05/20 16:25 Triglycerides 93 mg/dL (2-149) 08/05/20 16:25 Cholesterol 154 mg/dL (50-199) 08/05/20 16:25 LDL Cholesterol Direct 72 mg/dL (50-130) 08/05/20 16:25 HDL Cholesterol 61 mg/dL (40-59) H 08/05/20 16:25 Cholesterol/HDL Ratio 2.52 % 08/05/20 16:25 Vitamin B12 753.2 pg/mL (211-911) 08/05/20 23:23 RBC Folic Acid >1000 ng/mL (>280) 08/05/20 23:23 Procalcitonin 0.31 ng/mL (<0.15) 08/05/20 16:25 Coronavirus (PCR) Positive (Negative) A 08/05/20 10:32 Microbiology: Microbiology 08/05/20 16:25 Peripheral/Venous Blood Culture - Preliminary NO GROWTH AFTER 72 HOURS 08/05/20 16:17 Peripheral/Venous Blood Culture - Preliminary NO GROWTH AFTER 72 HOURS San/IV: Voiding Method Condom Catheter Active Medications - Current Medications Current Medications: Generic Name Dose Route Start Last Admin Trade Name Freq PRN Reason Stop Dose Admin Acetaminophen 650 mg 08/05/20 22:08 Acetaminophen 325 Mg Tab PO Q4H PRN Pain MILD(1-3)/Fever >100.5/REDD Amlodipine Besylate 10 mg 08/06/20 10:00 08/08/20 09:09 Amlodipine 10 Mg Tab PO 10 mg QAM DENISE Administration Aspirin 81 mg 08/06/20 10:00 08/08/20 09:39 Aspirin Ec 81 Mg Tab PO 81 mg QDAY DENISE Administration Atorvastatin Calcium 80 mg 08/06/20 22:00 08/07/20 23:18 Atorvastatin 40 Mg Tab PO 80 mg QHS DENISE Administration Clopidogrel Bisulfate 75 mg 08/06/20 10:00 08/08/20 09:10 Clopidogrel 75 Mg Tab PO 75 mg QDAY DENISE Administration Dexamethasone 8 mg 08/09/20 10:00 Dexamethasone 4 Mg Tab PO 08/14/20 12:00 DAILY DENISE Enoxaparin Sodium 40 mg 08/06/20 22:00 08/07/20 23:18 Enoxaparin 40 Mg/0.4 Ml Inj SUB-Q 40 mg QDAY@2200 DENISE Administration Protocol Famotidine 20 mg 08/05/20 22:15 08/08/20 09:40 Famotidine 20 Mg Tab PO 20 mg BID DENISE Administration Fenofibrate 48 mg 08/06/20 10:00 08/08/20 09:08 Fenofibrate 48 Mg Tab PO 48 mg QDAY DENISE Administration Furosemide 40 mg 08/06/20 06:00 08/08/20 17:44 Furosemide 40 Mg/4 Ml Inj IV 40 mg 0600,1800 DENISE Administration Hydralazine HCl 10 mg 08/08/20 14:44 08/08/20 15:07 Hydralazine 20 Mg/1 Ml Inj IV 10 mg Q4HR PRN Administration Hypertension Hydromorphone HCl 0.5 mg 08/05/20 22:25 08/05/20 23:54 Hydromorphone 1 Mg/1 Ml Inj IV 0.5 mg Q3H PRN Administration Pain , Severe (7-10) Azithromycin 500 mg in 250 mls @ 250 mls/hr 08/05/20 23:00 08/07/20 23:17 Zithromax/Ns IV 08/09/20 22:59 250 mls/hr Q24HR@2200 DENISE Administration Ceftriaxone Sodium 2 gm in 100 mls @ 200 mls/hr 08/05/20 23:00 08/07/20 23:17 Rocephin/Ns 2 Gm/100 Ml IV 08/09/20 23:59 200 mls/hr Q24HR@2200 DENISE Administration Protocol Amiodarone HCl 900 mg/ 500 mls @ 33.333 mls/hr 08/08/20 11:00 08/08/20 16:30 Dextrose IV 0.5 mg/min DIRECT DENISE 16.667 mls/hr Titration Protocol 1 MG/MIN Isosorbide Mononitrate 30 mg 08/06/20 10:00 08/08/20 09:08 Isosorbide Mononitrate Er 30 Mg Tab PO 30 mg DAILY DENISE Administration Losartan Potassium 100 mg 08/06/20 10:00 08/08/20 09:10 Losartan 50 Mg Tab PO 100 mg QDAY DENISE Administration Metoprolol Tartrate 5 mg 08/08/20 15:00 08/08/20 15:07 Metoprolol Tartrate 5 Mg/5 Ml Inj IV 5 mg Q4H PRN Administration TACHYCARDIA Ondansetron HCl 4 mg 08/05/20 22:25 08/08/20 11:32 Ondansetron 4 Mg/2 Ml Inj IV 4 mg Q8H PRN Administration Nausea And Vomiting Oxycodone/Acetaminophen 1 tab 08/05/20 22:25 08/07/20 20:05 Oxycodone /Acetaminophen 5-325mg Tab PO 1 tab Q6H PRN Administration Pain, Moderate (4-6) Sodium Chloride 10 ml 08/06/20 10:00 08/08/20 12:58 Sodium Chloride 0.9% 10 Ml Flush Syringe IV 10 ml BID DENISE Administration Sodium Chloride 10 ml 08/05/20 22:25 Sodium Chloride 0.9% 10 Ml Flush Syringe IV PRN PRN LINE FLUSH Tramadol HCl 50 mg 08/05/20 22:08 Tramadol 50 Mg Tab PO Q12H PRN Pain, Moderate (4-6) Nutrition/Malnutrition Assess - Dietary Evaluation Nutrition/Malnutrition Findings: Nutrition Notes Start: 08/06/20 12:34 Freq: Status: Active Protocol: Document 08/08/20 10:58 (Rec: 08/08/20 11:04 [id number]) Nutrition Notes Initial or Follow up Reassessment Current Diagnosis Coronary Artery Disease, Hypertension,Heart Failure, Respiratory Failure, Hyperlipidemia Other Pertinent Diagnosis SIRS, COVID, pneu Current Diet Cardiac Labs/Tests Reviewed Pertinent Medications Lasix Decadron Height 6 ft Weight 67.54 kg Turner Body Weight (kg) 80.90 BMI 20.2 Weight Status Underweight Subjective/Other Information FU for intakes. Per RN, pt eating well yesterday. Pt nauseous today and has not eaten. Pt does not like Ensure ONS. Percent of energy/protein needs met: 63%/51% Burn Absent Trauma Absent GI Symptoms Nausea Current % PO Poor (25-49%) Minimum of two criteria No physical signs of malnutrition #2 Nutrition Diagnosis Inadequate oral intake Etiology nausea As Evidenced by Signs and Symptoms pt refusing food #1 Nutrition Diagnosis Predicted suboptimal energy intake As Evidenced by Signs and Symptoms pt with nausea and not eating Diagnosis Progress(for reassessment Resolved documentation) Is patient on ventilator? No Is Patient Ambulatory and/or Out of Bed No REE-([facility] Pal-confined to bed) 6817.077 Calculation Used for Recommendations [facility] Additional Notes Protein: (1.25-1.5g/kg) 84- 101g Fluid: 1ml/kcal or per MD Nutrition Intervention Change Diet Order: Continue Add Supplement/Snack (indicate name/kcal D/c /protein ) Goal #1 Meet at least 75% of protein and energy needs via PO Anticipated Discharge Needs: Cardiac Follow-Up By: 08/09/20 Additional Comments FU for intakes
[2020-08-08] MEDS: ENOXAPARIN 40 MG/0.4 ML INJ SUB-Q SCH (22:23)
[2020-08-08] MEDS: cefTRIAXone/NS 2 GM/100 ML 2 GM/100 ML BAG IV SCH (22:25)
[2020-08-08] MEDS: AZITHROMYCIN/NS 500 MG/250 ML 500 MG/250 ML BAG IV SCH (22:26)
[2020-08-08] MEDS: HYDROmorphone 1 MG/1 ML INJ IV PRN (22:40)
[2020-08-09] MEDS: hydrALAZINE 20 MG/1 ML INJ IV PRN ×4 (05:34→21:30)
[2020-08-09] MEDS: FUROSEMIDE 40 MG/4 ML INJ IV SCH ×2 (05:35→17:48)
[2020-08-09] MEDS: amLODIPine 10 MG TAB PO SCH (09:45)
[2020-08-09] MEDS: DEXAMETHASONE 4 MG TAB PO SCH (09:45)
[2020-08-09] MEDS: LOSARTAN 50 MG TAB PO SCH (09:45)
[2020-08-09] MEDS: ASPIRIN EC 81 MG TAB PO SCH (09:45)
[2020-08-09] MEDS: FAMOTIDINE 20 MG TAB PO SCH ×2 (09:45→21:31)
[2020-08-09] MEDS: AMIODARONE 900 MG in DEXTROSE 5% IN WATER 482 ML IV SCH (09:45)
[2020-08-09] MEDS: CLOPIDOGREL 75 MG TAB PO SCH (09:45)
[2020-08-09] MEDS: ONDANSETRON 4 MG/2 ML INJ IV PRN ×2 (09:49→21:30)
--- NOTE | 2020-08-09 10:26 | Electrocardiograph Report ---
[facility] Test Date: 2020-08-05 Test Time: 16:07:52 Pat Name: TAMMI CAVANAUGH Department: Room: A267 Gender: M Disintegrator: VIC : 1945 Requested By: SYLVIA MATUTE Order Number: [id number] Reading MD: Noah Sorensen Measurements Intervals [place] Rate: 93 P: 0 [place]: 66 QRS: -6 QRSD: 90 T: 14 QT: 344 QTc: 427 Interpretive Statements Sinus rhythm No previous ECG available for comparison Electronically Signed On 08-09-2020 10:26:20 EDT by Noah Sorensen
--- NOTE | 2020-08-09 10:34 | Progress Note ---
Assessment and Plan Atrial fibrillation, new onset Nausea with vomiting Acute hypoxic respiratory failure COVID-19 infection Anemia 02/2018 Echocardiogram reported normal left ventricular systolic function, ejection fraction 55-60%. There was mild aortic stenosis. 07/2017 MPI -normal perfusion scan. Will continue intravenous amiodarone for new onset atrial fibrillation. Check a TSH and magnesium. Will consider oral anticoagulation for stroke prophylaxis before discharge. Subjective Date of service: 08/09/20 Principal diagnosis: Covid pneumonia, acute respiratory failure with hypoxia Interval history: Patient is resting in bed comfortably. Nurse reports no further vomiting. Objective Vital Signs Temp Pulse Pulse Pulse Resp Resp BP 08/09/20 10:01 86 16 169/85 08/09/20 09:45 75 177/85 08/09/20 09:00 94 H 10 L 157/81 08/09/20 08:00 98 F 72 97 H 11 L 157/81 08/09/20 07:00 101 H 11 L 164/83 08/09/20 06:39 08/09/20 06:00 103 H 11 L 168/89 08/09/20 05:34 102 H 188/83 08/09/20 05:00 77 10 L 166/90 08/09/20 04:00 98.0 F 73 74 10 L 166/90 08/09/20 03:59 74 08/09/20 03:00 71 9 L 169/93 08/09/20 02:00 73 10 L 165/84 08/09/20 01:00 61 10 L 168/83 08/09/20 00:03 78 08/09/20 00:00 98.8 F 71 10 L 161/87 08/08/20 23:10 8 L 08/08/20 23:00 107 H 19 164/94 08/08/20 22:40 12 16 08/08/20 22:15 138 H 164/94 08/08/20 22:00 126 H 18 168/93 08/08/20 21:00 109 H 17 162/86 08/08/20 20:15 132 H 08/08/20 20:00 97.8 F 97 H 18 169/82 08/08/20 19:34 113 H 18 175/61 08/08/20 19:00 89 17 166/80 08/08/20 18:36 102 H 16 172/77 08/08/20 18:30 88 17 162/83 08/08/20 18:16 81 22 158/95 08/08/20 18:00 105 H 17 182/71 08/08/20 17:45 94 H 16 182/71 08/08/20 17:41 98.4 F 08/08/20 17:30 101 H 17 155/97 08/08/20 17:15 143 H 18 155/97 08/08/20 17:00 142 H 16 163/86 08/08/20 16:46 88 14 158/83 08/08/20 16:30 88 15 148/70 08/08/20 16:16 84 18 168/78 08/08/20 16:00 94 H 18 168/81 08/08/20 15:45 85 15 168/81 08/08/20 15:35 88 16 170/76 08/08/20 15:07 136 H 167/97 08/08/20 14:30 145 H 08/08/20 12:15 134 H 18 159/77 08/08/20 12:00 Pulse Ox 08/09/20 10:01 98 08/09/20 09:45 08/09/20 09:00 08/09/20 08:00 100 08/09/20 07:00 99 08/09/20 06:39 100 08/09/20 06:00 100 08/09/20 05:34 08/09/20 05:00 98 08/09/20 04:00 98 08/09/20 03:59 08/09/20 03:00 99 08/09/20 02:00 100 08/09/20 01:00 100 08/09/20 00:03 08/09/20 00:00 100 08/08/20 23:10 08/08/20 23:00 96 08/08/20 22:40 08/08/20 22:15 08/08/20 22:00 98 08/08/20 21:00 96 08/08/20 20:15 08/08/20 20:00 96 08/08/20 19:34 97 08/08/20 19:00 96 08/08/20 18:36 96 08/08/20 18:30 98 08/08/20 18:16 99 08/08/20 18:00 99 08/08/20 17:45 98 08/08/20 17:41 08/08/20 17:30 98 08/08/20 17:15 99 08/08/20 17:00 98 08/08/20 16:46 98 08/08/20 16:30 99 08/08/20 16:16 100 08/08/20 16:00 100 08/08/20 15:45 100 08/08/20 15:35 100 08/08/20 15:07 08/08/20 14:30 100 08/08/20 12:15 100 08/08/20 12:00 99 - Physical Examination Narrative exam: Deferred due to isolation protocol. General: No Apparent Distress Cardiac: Positive: Irregularly Regular - Labs and Meds CBC 08/08/20 Range/Units 17:08 WBC 13.9 H (4.5-11.0) K/mm3 RBC 2.94 L (3.65-5.03) M/mm3 Hgb 7.8 L (11.8-15.2) gm/dl Hct 24.0 L (35.5-45.6) % Plt Count 656 H (140-440) K/mm3
--- NOTE | 2020-08-09 10:49 | Electrocardiograph Report ---
[facility] Test Date: 2020-08-08 Test Time: 10:01:26 Pat Name: TAMMI CAVANAUGH Department: Room: A267 Gender: M Basket Turner: INÉS : 1945 Requested By: NOAH MARADIAGA Order Number: [id number] Reading MD: Noah Maradiaga Measurements Intervals [place] Rate: 113 P: 46 [place]: 98 QRS: -14 QRSD: 82 T: 132 QT: 365 QTc: 500 Interpretive Statements Sinus with frequent PACs, and intermittent ventricular couplet Left ventricular hypertrophy Compared to ECG 08/05/2020 16:07:52 Electronically Signed On 08-09-2020 10:49:40 EDT by Noah Maradiaga
[2020-08-09] MEDS: FENOFIBRATE 48 MG TAB PO SCH (11:10)
[2020-08-09] MEDS: cefTRIAXone/NS 2 GM/100 ML 2 GM/100 ML BAG IV SCH (21:17)
[2020-08-09] MEDS: traMADol 50 MG TAB PO PRN (21:18)
[2020-08-09] MEDS: ENOXAPARIN 40 MG/0.4 ML INJ SUB-Q SCH (21:18)
[2020-08-09] MEDS: AZITHROMYCIN/NS 500 MG/250 ML 500 MG/250 ML BAG IV SCH (21:31)
[2020-08-10] MEDS: FUROSEMIDE 40 MG/4 ML INJ IV SCH ×2 (05:39→18:18)
[2020-08-10] MEDS: hydrALAZINE 20 MG/1 ML INJ IV PRN ×2 (05:44→11:14)
[2020-08-10] MEDS: ONDANSETRON 4 MG/2 ML INJ IV PRN (08:07)
[2020-08-10] MEDS: DEXAMETHASONE 4 MG TAB PO SCH (09:59)
[2020-08-10] MEDS: ASPIRIN EC 81 MG TAB PO SCH (10:00)
[2020-08-10] MEDS: amLODIPine 10 MG TAB PO SCH (10:00)
[2020-08-10] MEDS: LOSARTAN 50 MG TAB PO SCH (10:00)
[2020-08-10] MEDS: CLOPIDOGREL 75 MG TAB PO SCH (10:00)
[2020-08-10] MEDS: FAMOTIDINE 20 MG TAB PO SCH ×2 (10:01→22:29)
[2020-08-10] MEDS: FENOFIBRATE 48 MG TAB PO SCH (10:01)
[2020-08-10] MEDS: AMIODARONE 900 MG in DEXTROSE 5% IN WATER 482 ML IV SCH (11:15)
--- NOTE | 2020-08-10 11:42 | Progress Note ---
Assessment and Plan Atrial fibrillation, new onset pt has reverted to sinus rhythm normal TSH at 0.369 Nausea with vomiting Acute hypoxic respiratory failure COVID-19 infection Anemia 02/2018 Echocardiogram reported normal left ventricular systolic function, ejection fraction 55-60%. There was mild aortic stenosis. 07/2017 MPI -normal perfusion scan. Will transition to amiodarone for suppression of paroxysmal atrial fibrillation. Will consider oral anticoagulation for stroke prophylaxis before discharge. Subjective Date of service: 08/10/20 Principal diagnosis: Covid pneumonia, acute respiratory failure with hypoxia Interval history: Patient is resting in bed comfortably. Currently, he is sinus rhythm with PACs on telemetry. Objective Vital Signs Temp Pulse Pulse Resp BP Pulse Ox 08/10/20 11:14 85 176/83 08/10/20 11:00 91 H 18 176/83 95 08/10/20 10:01 101 H 20 152/132 95 08/10/20 10:00 77 178/82 08/10/20 09:59 77 178/82 08/10/20 09:01 86 17 178/82 94 08/10/20 08:10 98 08/10/20 08:01 94 H 21 164/86 94 08/10/20 08:00 98.2 F 100 H 98 H 16 98 08/10/20 07:00 74 17 149/63 96 08/10/20 06:01 82 19 149/63 94 08/10/20 05:44 85 187/91 08/10/20 05:01 87 16 187/91 98 08/10/20 04:01 104 H 15 176/86 08/10/20 03:46 98.5 F 08/10/20 03:39 82 08/10/20 03:00 87 87 15 171/86 97 08/10/20 02:01 102 H 13 170/90 98 08/10/20 01:01 83 16 138/67 98 08/10/20 00:01 87 17 157/83 96 08/10/20 00:00 85 08/09/20 23:55 97.8 F 08/09/20 23:00 77 22 157/79 96 08/09/20 22:00 106 H 22 146/74 97 08/09/20 21:30 94 H 163/87 08/09/20 21:18 23 08/09/20 21:17 97 08/09/20 21:00 94 H 12 163/87 08/09/20 20:00 98.2 F 98 H 22 154/85 08/09/20 19:01 114 H 17 168/88 08/09/20 18:15 84 20 150/79 08/09/20 18:01 89 16 150/79 08/09/20 17:01 86 15 169/95 100 08/09/20 16:01 91 H 15 168/84 100 08/09/20 16:00 98.8 F 74 74 14 98 08/09/20 15:01 83 14 159/82 100 08/09/20 14:01 85 21 167/89 99 08/09/20 13:00 66 16 170/88 100 08/09/20 12:29 84 08/09/20 12:01 77 13 167/91 100 08/09/20 12:00 98.2 F 97 H 16 98 - Physical Examination Narrative exam: Deferred due to isolation protocol. General: No Apparent Distress Cardiac: Positive: Irregularly Regular Neuro: Positive: Weakness (Generalized lethargy and fatigue) Abdomen: Positive: Soft Skin: Positive: Clear Extremities: Absent: edema - Imaging and Cardiology EKG: report reviewed
[2020-08-10 12:50] LABS: Hematocrit 23.4 % (35.5-45.6); Hemoglobin 7.9 gm/dl (11.8-15.2); Mean Corpuscular HGB Conc 34 % (32-34); Mean Corpuscular Volume 81 fl (84-94); Platelet Count 617 K/mm3 (140-440); Red Cell Distribution Width 17.6 % (13.2-15.2)
[2020-08-10 13:07] LABS: BUN/Creatinine Ratio 18; Blood Urea Nitrogen 24 mg/dL (9-20); Calcium 9.2 mg/dL (8.4-10.2); Hemolysis Index 7
[2020-08-10] MEDS: AMIODARONE 200 MG TAB PO SCH (13:29)
[2020-08-10 14:57] LABS: Total Cells Counted 100
[2020-08-10 14:59] LABS: Schistocytes Rare
[2020-08-10 15:00] LABS: Platelet Estimate Consistent w Auto
[2020-08-10] MEDS ORDERED: POTASSIUM CHLORIDE ER 20 MEQ TAB PO NR (15:20)
[2020-08-10] MEDS: traMADol 50 MG TAB PO PRN (18:18)
--- NOTE | 2020-08-10 19:34 | Progress Note ---
Assessment and Plan - Patient Problems (1) Atrial fibrillation with rapid ventricular response Current Visit: Yes Status: Acute Plan to address problem: Cardiology team consulted, IV rate control therapy, continue medical management, CHADS 2Vasc Score:3. Pt is high fall risk. Will initiate therapy with aspirin (2) Coronavirus infection Current Visit: Yes Status: Acute Plan to address problem: Coronavirus protocol: Contact precaution, isolation precautions, IV steroid therapy, IV antibiotic therapy, supportive care. Infectious disease service consulted. Continue medical management. (3) Vascular dementia Current Visit: Yes Status: Acute Qualifiers: Dementia behavioral disturbance: without behavioral disturbance Qualified Code(s): F01.50 - Vascular dementia without behavioral disturbance Plan to address problem: Verbal prompting, verbal redirection, benzodiazepine therapy as clinically in dicated. (4) Cerebral atherosclerosis Current Visit: Yes Status: Acute Plan to address problem: Risk factor reduction, supportive care, antiplatelet therapy as clinically indicated. (5) Acute respiratory failure with hypoxia Current Visit: Yes Status: Acute Plan to address problem: Supplemental oxygen, pulse oximetry, nebulizer therapy, proposition while in bed, supportive care. (6) CHF exacerbation Current Visit: Yes Status: Acute Qualifiers: Heart failure type: combined systolic and diastolic Qualified Code(s): I50.43 - Acute on chronic combined systolic (congestive) and diastolic (congestive) heart failure Plan to address problem: Cardiology team consulted, continue conservative medical management as per cardiology team recommendations. (7) Hyperlipidemia Current Visit: Yes Status: Acute Plan to address problem: Low-cholesterol diet, statin therapy as clinically indicated. (8) DVT prophylaxis Current Visit: Yes Status: Acute Plan to address problem: SCD to bilateral lower extremities while in bed, prophylactic anticoagulation (9) Advance care planning Current Visit: Yes Status: Acute Plan to address problem: Disease education conducted, care plan discussed, prognosis discussed, patient is full code, +30 minutes. History Interval history: 75 YO Male HD #5 with Coronavirus Infection, Diastolic CHF, Vascular Dementia, Cerebral Atherosclerosis, Atrial Fib with RVR. Patient resting comfortably in bed. Patient has diminished cognition. No reported nursing events. Patient denies pain. Pt convalesced well overnight. Hospitalist Physical - Constitutional Vitals: Temp Pulse Resp BP Pulse Ox 98.5 F 87 18 120/55 96 08/10/20 16:00 08/10/20 18:01 08/10/20 18:01 08/10/20 18:01 08/10/20 18:01 General appearance: Present: mild distress, well-nourished - EENT Eyes: Present: PERRL, EOM intact ENT: hearing intact - Neck Neck: Present: supple - Respiratory Respiratory: bilateral: CTA - Cardiovascular Rhythm: irregularly irregular - Extremities Extremities: no ischemia Peripheral Pulses: within normal limits - Abdominal General gastrointestinal: soft, non-tender, non-distended - Integumentary Integumentary: Present: clear, erythema - Psychiatric Psychiatric: cooperative - Neurologic Neurologic: CNII-XII intact HEART Score - HEART Score Troponin: Troponin T 0.127 ng/mL (0.00-0.029) H* 08/05/20 16:25 Results - Labs CBC & Chem 7: 08/10/20 12:07 08/10/20 12:07 Labs: Laboratory Last Values WBC 13.9 K/mm3 (4.5-11.0) H 08/10/20 12:07 RBC 2.90 M/mm3 (3.65-5.03) L 08/10/20 12:07 Hgb 7.9 gm/dl (11.8-15.2) L 08/10/20 12:07 Hct 23.4 % (35.5-45.6) L 08/10/20 12:07 MCV 81 fl (84-94) L 08/10/20 12:07 MCH 27 pg (28-32) L 08/10/20 12:07 MCHC 34 % (32-34) 08/10/20 12:07 RDW 17.6 % (13.2-15.2) H 08/10/20 12:07 Plt Count 617 K/mm3 (140-440) H 08/10/20 12:07 Add Manual Diff Complete 08/10/20 12:07 Total Counted 100 08/10/20 12:07 Seg Neutrophils % Single Pointed Operator 08/10/20 12:07 Seg Neuts % (Manual) 95.0 % (40.0-70.0) H 08/08/20 17:08 Lymphocytes % (Manual) 4.0 % (13.4-35.0) L 08/10/20 12:07 Monocytes % (Manual) 2.0 % (0.0-7.3) 08/08/20 17:08 Nucleated RBC % Not Reportable 08/10/20 12:07 Seg Neutrophils # Man 13.3 K/mm3 (1.8-7.7) H 08/10/20 12:07 Band Neutrophils # 0.0 K/mm3 08/10/20 12:07 Lymphocytes # (Manual) 0.6 K/mm3 (1.2-5.4) L 08/10/20 12:07 Abs React Lymphs (Man) 0.0 K/mm3 08/10/20 12:07 Monocytes # (Manual) 0.0 K/mm3 (0.0-0.8) 08/10/20 12:07 Eosinophils # (Manual) 0.0 K/mm3 (0.0-0.4) 08/10/20 12:07 Basophils # (Manual) 0.0 K/mm3 (0.0-0.1) 08/10/20 12:07 Metamyelocytes # 0.0 K/mm3 08/10/20 12:07 Myelocytes # 0.0 K/mm3 08/10/20 12:07 Promyelocytes # 0.0 K/mm3 08/10/20 12:07 Blast Cells # 0.0 K/mm3 08/10/20 12:07 WBC Morphology Not Reportable 08/10/20 12:07 Hypersegmented Neuts Not Reportable 08/10/20 12:07 Hyposegmented Neuts Not Reportable 08/10/20 12:07 Hypogranular Neuts Not Reportable 08/10/20 12:07 Smudge Cells Not Reportable 08/10/20 12:07 Toxic Granulation Not Reportable 08/10/20 12:07 Toxic Vacuolation Not Reportable 08/10/20 12:07 Dohle Bodies Not Reportable 08/10/20 12:07 Pelger-Huet Anomaly Not Reportable 08/10/20 12:07 Cheri Rods Not Reportable 08/10/20 12:07 Platelet Estimate Consistent w auto 08/10/20 12:07 Clumped Platelets Not Reportable 08/10/20 12:07 Plt Clumps, EDTA Not Reportable 08/10/20 12:07 Large Platelets Not Reportable 08/10/20 12:07 Giant Platelets Not Reportable 08/10/20 12:07 Platelet Satelliting Not Reportable 08/10/20 12:07 Plt Morphology Comment Not Reportable 08/10/20 12:07 RBC Morphology Not Reportable 08/10/20 12:07 Dimorphic RBCs Not Reportable 08/10/20 12:07 Polychromasia Not Reportable 08/10/20 12:07 Hypochromasia Not Reportable 08/10/20 12:07 Poikilocytosis Not Reportable 08/10/20 12:07 Anisocytosis Not Reportable 08/10/20 12:07 Microcytosis Not Reportable 08/10/20 12:07 Macrocytosis Not Reportable 08/10/20 12:07 Spherocytes Not Reportable 08/10/20 12:07 Pappenheimer Bodies Not Reportable 08/10/20 12:07 Sickle Cells Not Reportable 08/10/20 12:07 Target Cells Not Reportable 08/10/20 12:07 Tear Drop Cells Not Reportable 08/10/20 12:07 Ovalocytes Not Reportable 08/10/20 12:07 Helmet Cells Not Reportable 08/10/20 12:07 [place] Bodies Not Reportable 08/10/20 12:07 [place] Rings Not Reportable 08/10/20 12:07 Olya Cells Not Reportable 08/10/20 12:07 Bite Cells Not Reportable 08/10/20 12:07 Crenated Cell Not Reportable 08/10/20 12:07 Elliptocytes Not Reportable 08/10/20 12:07 Acanthocytes (Spur) Not Reportable 08/10/20 12:07 Rouleaux Not Reportable 08/10/20 12:07 Hemoglobin C Crystals Not Reportable 08/10/20 12:07 Schistocytes Rare 08/10/20 12:07 Malaria parasites Not Reportable 08/10/20 12:07 Mc Bodies Not Reportable 08/10/20 12:07 Hem Pathologist Commnt No 08/10/20 12:07 D-Dimer 1218.20 ng/mlDDU (0-234) H 08/05/20 16:25 Sodium 138 mmol/L (137-145) 08/10/20 12:07 Potassium 2.9 mmol/L (3.6-5.0) L* D 08/10/20 12:07 Chloride 96.7 mmol/L (98-107) L 08/10/20 12:07 Carbon Dioxide 28 mmol/L (22-30) 08/10/20 12:07 Anion Gap 16 mmol/L 08/10/20 12:07 BUN 24 mg/dL (9-20) H 08/10/20 12:07 Creatinine 1.3 mg/dL (0.8-1.3) 08/10/20 12:07 Estimated GFR > 60 ml/min 08/10/20 12:07 BUN/Creatinine Ratio 18 % 08/10/20 12:07 Glucose 100 mg/dL (75-100) 08/10/20 12:07 POC Glucose 132 mg/dL (70-105) H 08/08/20 17:08 Hemoglobin A1c < 4.0 % (4-6) L 08/06/20 06:55 Lactic Acid 0.50 mmol/L (0.7-2.0) L 08/05/20 19:51 Calcium 9.2 mg/dL (8.4-10.2) 08/10/20 12:07 Magnesium 1.80 mg/dL (1.7-2.3) 08/09/20 14:46 Iron 21 ug/dL (49-181) L 08/05/20 23:23 TIBC 232 mcg/dL (250-450) L 08/05/20 23:23 % Saturation 9.05 % 08/05/20 23:23 Transferrin 189 mg/dl (180-329) 08/05/20 23:23 Ferritin 817.3 ng/mL (30.0-300.0) H 08/05/20 16:25 Total Bilirubin 0.30 mg/dL (0.1-1.2) 08/05/20 16:25 AST 12 units/L (5-40) 08/05/20 16:25 ALT < 5 units/L (7-56) L 08/05/20 16:25 Alkaline Phosphatase 54 units/L (35-129) 08/05/20 16:25 Lactate Dehydrogenase 225 units/L (91-180) H 08/05/20 16:25 Troponin T 0.127 ng/mL (0.00-0.029) H* 08/05/20 16:25 C-Reactive Protein 8.30 mg/dL (0.00-1.30) H 08/05/20 16:25 NT-Pro-B Natriuret Pep > 57893 pg/mL (0-900) H 08/05/20 16:25 Total Protein 6.9 g/dL (6.3-8.2) 08/05/20 16:25 Albumin 3.5 g/dL (3.9-5) L 08/05/20 16:25 Albumin/Globulin Ratio 1.0 % 08/05/20 16:25 Triglycerides 93 mg/dL (2-149) 08/05/20 16:25 Cholesterol 154 mg/dL (50-199) 08/05/20 16:25 LDL Cholesterol Direct 72 mg/dL (50-130) 08/05/20 16:25 HDL Cholesterol 61 mg/dL (40-59) H 08/05/20 16:25 Cholesterol/HDL Ratio 2.52 % 08/05/20 16:25 Vitamin B12 753.2 pg/mL (211-911) 08/05/20 23:23 RBC Folic Acid >1000 ng/mL (>280) 08/05/20 23:23 Procalcitonin 0.31 ng/mL (<0.15) 08/05/20 16:25 TSH 0.369 mlU/mL (0.270-4.200) 08/09/20 14:46 Coronavirus (PCR) Positive (Negative) A 08/05/20 10:32 Microbiology: Microbiology 08/05/20 16:25 Peripheral/Venous Blood Culture - Final NO GROWTH AFTER 5 DAYS 08/05/20 16:17 Peripheral/Venous Blood Culture - Final NO GROWTH AFTER 5 DAYS [place]/IV: Voiding Method Condom Catheter Active Medications - Current Medications Current Medications: Generic Name Dose Route Start Last Admin Trade Name Freq PRN Reason Stop Dose Admin Acetaminophen 650 mg 08/05/20 22:08 Acetaminophen 325 Mg Tab PO Q4H PRN Pain MILD(1-3)/Fever >100.5/REDD Amiodarone HCl 200 mg 08/10/20 12:00 08/10/20 13:29 Amiodarone 200 Mg Tab PO 200 mg QDAY DENISE Administration Amlodipine Besylate 10 mg 08/06/20 10:00 08/10/20 10:00 Amlodipine 10 Mg Tab PO 10 mg QAM DENISE Administration Aspirin 81 mg 08/06/20 10:00 08/10/20 10:00 Aspirin Ec 81 Mg Tab PO 81 mg QDAY DENISE Administration Atorvastatin Calcium 80 mg 08/06/20 22:00 08/09/20 21:19 Atorvastatin 40 Mg Tab PO 80 mg QHS DENISE Administration Clopidogrel Bisulfate 75 mg 08/06/20 10:00 08/10/20 10:00 Clopidogrel 75 Mg Tab PO 75 mg QDAY DENISE Administration Dexamethasone 8 mg 08/09/20 10:00 08/10/20 09:59 Dexamethasone 4 Mg Tab PO 08/14/20 12:00 8 mg DAILY DENISE Administration Enoxaparin Sodium 40 mg 08/06/20 22:00 08/09/20 21:18 Enoxaparin 40 Mg/0.4 Ml Inj SUB-Q 40 mg QDAY@2200 DENISE Administration Protocol Famotidine 20 mg 08/05/20 22:15 08/10/20 10:01 Famotidine 20 Mg Tab PO 20 mg BID DENISE Administration Fenofibrate 48 mg 08/06/20 10:00 08/10/20 10:01 Fenofibrate 48 Mg Tab PO 48 mg QDAY DENISE Administration Furosemide 40 mg 08/06/20 06:00 08/10/20 18:18 Furosemide 40 Mg/4 Ml Inj IV 40 mg 0600,1800 DENISE Administration Hydralazine HCl 10 mg 08/08/20 14:44 08/10/20 11:14 Hydralazine 20 Mg/1 Ml Inj IV 10 mg Q4HR PRN Administration Hypertension Hydromorphone HCl 0.5 mg 08/05/20 22:25 08/08/20 22:40 Hydromorphone 1 Mg/1 Ml Inj IV 0.5 mg Q3H PRN Administration Pain , Severe (7-10) Isosorbide Mononitrate 30 mg 08/06/20 10:00 08/10/20 09:59 Isosorbide Mononitrate Er 30 Mg Tab PO 30 mg DAILY DENISE Administration Losartan Potassium 100 mg 08/06/20 10:00 08/10/20 10:00 Losartan 50 Mg Tab PO 100 mg QDAY DENISE Administration Metoprolol Tartrate 5 mg 08/08/20 15:00 08/08/20 22:15 Metoprolol Tartrate 5 Mg/5 Ml Inj IV 5 mg Q4H PRN Administration TACHYCARDIA Ondansetron HCl 4 mg 08/05/20 22:25 08/10/20 08:07 Ondansetron 4 Mg/2 Ml Inj IV 4 mg Q8H PRN Administration Nausea And Vomiting Oxycodone/Acetaminophen 1 tab 08/05/20 22:25 08/07/20 20:05 Oxycodone /Acetaminophen 5-325mg Tab PO 1 tab Q6H PRN Administration Pain, Moderate (4-6) Sodium Chloride 10 ml 08/06/20 10:00 08/10/20 10:01 Sodium Chloride 0.9% 10 Ml Flush Syringe IV Not Given BID DENISE Sodium Chloride 10 ml 08/05/20 22:25 Sodium Chloride 0.9% 10 Ml Flush Syringe IV PRN PRN LINE FLUSH Tramadol HCl 50 mg 08/05/20 22:08 08/10/20 18:18 Tramadol 50 Mg Tab PO 50 mg Q12H PRN Administration Pain, Moderate (4-6) Nutrition/Malnutrition Assess - Dietary Evaluation Nutrition/Malnutrition Findings: Nutrition Notes Start: 08/06/20 12:34 Freq: Status: Active Protocol: Document 08/09/20 13:07 CW (Rec: 08/09/20 13:14 CW [id number]) Nutrition Notes Initial or Follow up Reassessment Current Diagnosis Coronary Artery Disease, Hypertension,Heart Failure, Respiratory Failure, Hyperlipidemia Other Pertinent Diagnosis SIRS, COVID, pneu, dementia Current Diet Cardiac Labs/Tests No new labs Pertinent Medications Zofran Decadron Lasix Height 6 ft Weight 67.54 kg [place] Body Weight (kg) 80.90 BMI 20.2 Weight Status Underweight Subjective/Other Information F/U for intakes. Pt did not answer phone x2. Pt continues to not eat much of meals but will drink. Pt does not like Ensure. Will attempt Ensure clear for better tolerance. 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 No Is Patient Ambulatory and/or Out of Bed No REE-([facility]-confined to bed) 6824.226 Calculation Used for Recommendations [facility] Additional Notes Protein: (1.25-1.5g/kg) 84- 101g Fluid: 1ml/kcal or per MD Nutrition Intervention Change Diet Order: Continue Add Supplement/Snack (indicate name/kcal Ensure Clear BID /protein ) Provides kCal: 480 Provides Protein (gm) 16 Goal #1 Meet at least 75% of protein and energy needs via PO Anticipated Discharge Needs: Cardiac Follow-Up By: 08/13/20 Additional Comments F/U for intakes and Ensure clear tolerance
--- NOTE | 2020-08-10 19:43 | Progress Note ---
Assessment and Plan - Patient Problems (1) Atrial fibrillation with rapid ventricular response Current Visit: Yes Status: Acute Plan to address problem: Cardiology team consulted, IV rate control therapy, continue medical management, CHADS 2Vasc Score:3. Pt is high fall risk. Will initiate therapy with aspirin (2) Coronavirus infection Current Visit: Yes Status: Acute Plan to address problem: Coronavirus protocol: Contact precaution, isolation precautions, IV steroid therapy, IV antibiotic therapy, supportive care. Infectious disease service consulted. Continue medical management. (3) Vascular dementia Current Visit: Yes Status: Acute Qualifiers: Dementia behavioral disturbance: without behavioral disturbance Qualified Code(s): F01.50 - Vascular dementia without behavioral disturbance Plan to address problem: Verbal prompting, verbal redirection, benzodiazepine therapy as clinically in dicated. (4) Cerebral atherosclerosis Current Visit: Yes Status: Acute Plan to address problem: Risk factor reduction, supportive care, antiplatelet therapy as clinically indicated. (5) Acute respiratory failure with hypoxia Current Visit: Yes Status: Acute Plan to address problem: Supplemental oxygen, pulse oximetry, nebulizer therapy, proposition while in bed, supportive care. (6) CHF exacerbation Current Visit: Yes Status: Acute Qualifiers: Heart failure type: combined systolic and diastolic Qualified Code(s): I50.43 - Acute on chronic combined systolic (congestive) and diastolic (congestive) heart failure Plan to address problem: Cardiology team consulted, continue conservative medical management as per cardiology team recommendations. (7) Hyperlipidemia Current Visit: Yes Status: Acute Plan to address problem: Low-cholesterol diet, statin therapy as clinically indicated. (8) DVT prophylaxis Current Visit: Yes Status: Acute Plan to address problem: SCD to bilateral lower extremities while in bed, prophylactic anticoagulation (9) Advance care planning Current Visit: Yes Status: Acute Plan to address problem: Disease education conducted, care plan discussed, prognosis discussed, patient is full code, +30 minutes. History Interval history: 75 YO Male HD #6 with Coronavirus Infection, Diastolic CHF, Vascular Dementia, Cerebral Atherosclerosis, Atrial Fib with RVR. Patient resting comfortably in bed. Patient has diminished cognition. No reported nursing events. Patient denies pain. Pt convalesced well overnight. Hospitalist Physical - Constitutional Vitals: Temp Pulse Resp BP Pulse Ox 98.5 F 87 18 120/55 96 08/10/20 16:00 08/10/20 18:01 08/10/20 18:01 08/10/20 18:01 08/10/20 18:01 General appearance: Present: mild distress, well-nourished - EENT Eyes: Present: PERRL, EOM intact - Neck Neck: Present: supple - Respiratory Respiratory effort: labored Respiratory: bilateral: CTA - Cardiovascular Rhythm: irregularly irregular - Extremities Extremities: no ischemia Peripheral Pulses: within normal limits - Integumentary Integumentary: Present: clear, dry - Psychiatric Psychiatric: appropriate mood/affect, cooperative - Neurologic Neurologic: CNII-XII intact HEART Score - HEART Score Troponin: Troponin T 0.127 ng/mL (0.00-0.029) H* 08/05/20 16:25 Results - Labs CBC & Chem 7: 08/10/20 12:07 08/10/20 12:07 Labs: Laboratory Last Values WBC 13.9 K/mm3 (4.5-11.0) H 08/10/20 12:07 RBC 2.90 M/mm3 (3.65-5.03) L 08/10/20 12:07 Hgb 7.9 gm/dl (11.8-15.2) L 08/10/20 12:07 Hct 23.4 % (35.5-45.6) L 08/10/20 12:07 MCV 81 fl (84-94) L 08/10/20 12:07 MCH 27 pg (28-32) L 08/10/20 12:07 MCHC 34 % (32-34) 08/10/20 12:07 RDW 17.6 % (13.2-15.2) H 08/10/20 12:07 Plt Count 617 K/mm3 (140-440) H 08/10/20 12:07 Add Manual Diff Complete 08/10/20 12:07 Total Counted 100 08/10/20 12:07 Seg Neutrophils % Preschool Aide 08/10/20 12:07 Seg Neuts % (Manual) 95.0 % (40.0-70.0) H 08/08/20 17:08 Lymphocytes % (Manual) 4.0 % (13.4-35.0) L 08/10/20 12:07 Monocytes % (Manual) 2.0 % (0.0-7.3) 08/08/20 17:08 Nucleated RBC % Not Reportable 08/10/20 12:07 Seg Neutrophils # Man 13.3 K/mm3 (1.8-7.7) H 08/10/20 12:07 Band Neutrophils # 0.0 K/mm3 08/10/20 12:07 Lymphocytes # (Manual) 0.6 K/mm3 (1.2-5.4) L 08/10/20 12:07 Abs React Lymphs (Man) 0.0 K/mm3 08/10/20 12:07 Monocytes # (Manual) 0.0 K/mm3 (0.0-0.8) 08/10/20 12:07 Eosinophils # (Manual) 0.0 K/mm3 (0.0-0.4) 08/10/20 12:07 Basophils # (Manual) 0.0 K/mm3 (0.0-0.1) 08/10/20 12:07 Metamyelocytes # 0.0 K/mm3 08/10/20 12:07 Myelocytes # 0.0 K/mm3 08/10/20 12:07 Promyelocytes # 0.0 K/mm3 08/10/20 12:07 Blast Cells # 0.0 K/mm3 08/10/20 12:07 WBC Morphology Not Reportable 08/10/20 12:07 Hypersegmented Neuts Not Reportable 08/10/20 12:07 Hyposegmented Neuts Not Reportable 08/10/20 12:07 Hypogranular Neuts Not Reportable 08/10/20 12:07 Smudge Cells Not Reportable 08/10/20 12:07 Toxic Granulation Not Reportable 08/10/20 12:07 Toxic Vacuolation Not Reportable 08/10/20 12:07 Dohle Bodies Not Reportable 08/10/20 12:07 Pelger-Huet Anomaly Not Reportable 08/10/20 12:07 Cheri Rods Not Reportable 08/10/20 12:07 Platelet Estimate Consistent w auto 08/10/20 12:07 Clumped Platelets Not Reportable 08/10/20 12:07 Plt Clumps, EDTA Not Reportable 08/10/20 12:07 Large Platelets Not Reportable 08/10/20 12:07 Giant Platelets Not Reportable 08/10/20 12:07 Platelet Satelliting Not Reportable 08/10/20 12:07 Plt Morphology Comment Not Reportable 08/10/20 12:07 RBC Morphology Not Reportable 08/10/20 12:07 Dimorphic RBCs Not Reportable 08/10/20 12:07 Polychromasia Not Reportable 08/10/20 12:07 Hypochromasia Not Reportable 08/10/20 12:07 Poikilocytosis Not Reportable 08/10/20 12:07 Anisocytosis Not Reportable 08/10/20 12:07 Microcytosis Not Reportable 08/10/20 12:07 Macrocytosis Not Reportable 08/10/20 12:07 Spherocytes Not Reportable 08/10/20 12:07 Pappenheimer Bodies Not Reportable 08/10/20 12:07 Sickle Cells Not Reportable 08/10/20 12:07 Target Cells Not Reportable 08/10/20 12:07 Tear Drop Cells Not Reportable 08/10/20 12:07 Ovalocytes Not Reportable 08/10/20 12:07 Helmet Cells Not Reportable 08/10/20 12:07 Blackwell-Lawrence Bodies Not Reportable 08/10/20 12:07 [place] Rings Not Reportable 08/10/20 12:07 [place]pa Cells Not Reportable 08/10/20 12:07 Bite Cells Not Reportable 08/10/20 12:07 Crenated Cell Not Reportable 08/10/20 12:07 Elliptocytes Not Reportable 08/10/20 12:07 Acanthocytes (Spur) Not Reportable 08/10/20 12:07 Rouleaux Not Reportable 08/10/20 12:07 Hemoglobin C Crystals Not Reportable 08/10/20 12:07 Schistocytes Rare 08/10/20 12:07 Malaria parasites Not Reportable 08/10/20 12:07 Mc Bodies Not Reportable 08/10/20 12:07 Hem Pathologist Commnt No 08/10/20 12:07 D-Dimer 1218.20 ng/mlDDU (0-234) H 08/05/20 16:25 Sodium 138 mmol/L (137-145) 08/10/20 12:07 Potassium 2.9 mmol/L (3.6-5.0) L* D 08/10/20 12:07 Chloride 96.7 mmol/L (98-107) L 08/10/20 12:07 Carbon Dioxide 28 mmol/L (22-30) 08/10/20 12:07 Anion Gap 16 mmol/L 08/10/20 12:07 BUN 24 mg/dL (9-20) H 08/10/20 12:07 Creatinine 1.3 mg/dL (0.8-1.3) 08/10/20 12:07 Estimated GFR > 60 ml/min 08/10/20 12:07 BUN/Creatinine Ratio 18 % 08/10/20 12:07 Glucose 100 mg/dL (75-100) 08/10/20 12:07 POC Glucose 132 mg/dL (70-105) H 08/08/20 17:08 Hemoglobin A1c < 4.0 % (4-6) L 08/06/20 06:55 Lactic Acid 0.50 mmol/L (0.7-2.0) L 08/05/20 19:51 Calcium 9.2 mg/dL (8.4-10.2) 08/10/20 12:07 Magnesium 1.80 mg/dL (1.7-2.3) 08/09/20 14:46 Iron 21 ug/dL (49-181) L 08/05/20 23:23 TIBC 232 mcg/dL (250-450) L 08/05/20 23:23 % Saturation 9.05 % 08/05/20 23:23 Transferrin 189 mg/dl (180-329) 08/05/20 23:23 Ferritin 817.3 ng/mL (30.0-300.0) H 08/05/20 16:25 Total Bilirubin 0.30 mg/dL (0.1-1.2) 08/05/20 16:25 AST 12 units/L (5-40) 08/05/20 16:25 ALT < 5 units/L (7-56) L 08/05/20 16:25 Alkaline Phosphatase 54 units/L (35-129) 08/05/20 16:25 Lactate Dehydrogenase 225 units/L (91-180) H 08/05/20 16:25 Troponin T 0.127 ng/mL (0.00-0.029) H* 08/05/20 16:25 C-Reactive Protein 8.30 mg/dL (0.00-1.30) H 08/05/20 16:25 NT-Pro-B Natriuret Pep > 18525 pg/mL (0-900) H 08/05/20 16:25 Total Protein 6.9 g/dL (6.3-8.2) 08/05/20 16:25 Albumin 3.5 g/dL (3.9-5) L 08/05/20 16:25 Albumin/Globulin Ratio 1.0 % 08/05/20 16:25 Triglycerides 93 mg/dL (2-149) 08/05/20 16:25 Cholesterol 154 mg/dL (50-199) 08/05/20 16:25 LDL Cholesterol Direct 72 mg/dL (50-130) 08/05/20 16:25 HDL Cholesterol 61 mg/dL (40-59) H 08/05/20 16:25 Cholesterol/HDL Ratio 2.52 % 08/05/20 16:25 Vitamin B12 753.2 pg/mL (211-911) 08/05/20 23:23 RBC Folic Acid >1000 ng/mL (>280) 08/05/20 23:23 Procalcitonin 0.31 ng/mL (<0.15) 08/05/20 16:25 TSH 0.369 mlU/mL (0.270-4.200) 08/09/20 14:46 Coronavirus (PCR) Positive (Negative) A 08/05/20 10:32 Microbiology: Microbiology 08/05/20 16:25 Peripheral/Venous Blood Culture - Final NO GROWTH AFTER 5 DAYS 08/05/20 16:17 Peripheral/Venous Blood Culture - Final NO GROWTH AFTER 5 DAYS San/IV: Voiding Method Condom Catheter Active Medications - Current Medications Current Medications: Generic Name Dose Route Start Last Admin Trade Name Freq PRN Reason Stop Dose Admin Acetaminophen 650 mg 08/05/20 22:08 Acetaminophen 325 Mg Tab PO Q4H PRN Pain MILD(1-3)/Fever >100.5/REDD Amiodarone HCl 200 mg 08/10/20 12:00 08/10/20 13:29 Amiodarone 200 Mg Tab PO 200 mg QDAY DENISE Administration Amlodipine Besylate 10 mg 08/06/20 10:00 08/10/20 10:00 Amlodipine 10 Mg Tab PO 10 mg QAM DENISE Administration Aspirin 81 mg 08/06/20 10:00 08/10/20 10:00 Aspirin Ec 81 Mg Tab PO 81 mg QDAY DENISE Administration Atorvastatin Calcium 80 mg 08/06/20 22:00 08/09/20 21:19 Atorvastatin 40 Mg Tab PO 80 mg QHS DENISE Administration Clopidogrel Bisulfate 75 mg 08/06/20 10:00 08/10/20 10:00 Clopidogrel 75 Mg Tab PO 75 mg QDAY DENISE Administration Dexamethasone 8 mg 08/09/20 10:00 08/10/20 09:59 Dexamethasone 4 Mg Tab PO 08/14/20 12:00 8 mg DAILY DENISE Administration Enoxaparin Sodium 40 mg 08/06/20 22:00 08/09/20 21:18 Enoxaparin 40 Mg/0.4 Ml Inj SUB-Q 40 mg QDAY@2200 DENISE Administration Protocol Famotidine 20 mg 08/05/20 22:15 08/10/20 10:01 Famotidine 20 Mg Tab PO 20 mg BID DENISE Administration Fenofibrate 48 mg 08/06/20 10:00 08/10/20 10:01 Fenofibrate 48 Mg Tab PO 48 mg QDAY DENISE Administration Furosemide 40 mg 08/06/20 06:00 08/10/20 18:18 Furosemide 40 Mg/4 Ml Inj IV 40 mg 0600,1800 DENISE Administration Hydralazine HCl 10 mg 08/08/20 14:44 08/10/20 11:14 Hydralazine 20 Mg/1 Ml Inj IV 10 mg Q4HR PRN Administration Hypertension Hydromorphone HCl 0.5 mg 08/05/20 22:25 08/08/20 22:40 Hydromorphone 1 Mg/1 Ml Inj IV 0.5 mg Q3H PRN Administration Pain , Severe (7-10) Isosorbide Mononitrate 30 mg 08/06/20 10:00 08/10/20 09:59 Isosorbide Mononitrate Er 30 Mg Tab PO 30 mg DAILY DENISE Administration Losartan Potassium 100 mg 08/06/20 10:00 08/10/20 10:00 Losartan 50 Mg Tab PO 100 mg QDAY DENISE Administration Metoprolol Tartrate 5 mg 08/08/20 15:00 08/08/20 22:15 Metoprolol Tartrate 5 Mg/5 Ml Inj IV 5 mg Q4H PRN Administration TACHYCARDIA Ondansetron HCl 4 mg 08/05/20 22:25 08/10/20 08:07 Ondansetron 4 Mg/2 Ml Inj IV 4 mg Q8H PRN Administration Nausea And Vomiting Oxycodone/Acetaminophen 1 tab 08/05/20 22:25 08/07/20 20:05 Oxycodone /Acetaminophen 5-325mg Tab PO 1 tab Q6H PRN Administration Pain, Moderate (4-6) Sodium Chloride 10 ml 08/06/20 10:00 08/10/20 10:01 Sodium Chloride 0.9% 10 Ml Flush Syringe IV Not Given BID DENISE Sodium Chloride 10 ml 08/05/20 22:25 Sodium Chloride 0.9% 10 Ml Flush Syringe IV PRN PRN LINE FLUSH Tramadol HCl 50 mg 08/05/20 22:08 08/10/20 18:18 Tramadol 50 Mg Tab PO 50 mg Q12H PRN Administration Pain, Moderate (4-6) Nutrition/Malnutrition Assess - Dietary Evaluation Nutrition/Malnutrition Findings: Nutrition Notes Start: 08/06/20 12:34 Freq: Status: Active Protocol: Document 08/09/20 13:07 CW (Rec: 08/09/20 13:14 CW [id number]) Nutrition Notes Initial or Follow up Reassessment Current Diagnosis Coronary Artery Disease, Hypertension,Heart Failure, Respiratory Failure, Hyperlipidemia Other Pertinent Diagnosis SIRS, COVID, pneu, dementia Current Diet Cardiac Labs/Tests No new labs Pertinent Medications Zofran Decadron Lasix Height 6 ft Weight 67.54 kg [place] Body Weight (kg) 80.90 BMI 20.2 Weight Status Underweight Subjective/Other Information F/U for intakes. Pt did not answer phone x2. Pt continues to not eat much of meals but will drink. Pt does not like Ensure. Will attempt Ensure clear for better tolerance. Percent of energy/protein needs met: 0%/0% Burn Absent Trauma Absent GI Symptoms Nausea Skin Integrity/Comment sacral pressure ulcer Current % PO Negligible Minimum of two criteria No Reduced Claim Benefit Specialist Strength Measurably Reduced (severe) #2 Nutrition Diagnosis Inadequate oral intake Diagnosis Progress(for reassessment Continues documentation) Is patient on ventilator? No Is Patient Ambulatory and/or Out of Bed No REE-([facility]-confined to bed) 6227.819 Calculation Used for Recommendations [facility] Additional Notes Protein: (1.25-1.5g/kg) 84- 101g Fluid: 1ml/kcal or per MD Nutrition Intervention Change Diet Order: Continue Add Supplement/Snack (indicate name/kcal Ensure Clear BID /protein ) Provides kCal: 480 Provides Protein (gm) 16 Goal #1 Meet at least 75% of protein and energy needs via PO Anticipated Discharge Needs: Cardiac Follow-Up By: 08/13/20 Additional Comments F/U for intakes and Ensure clear tolerance
[2020-08-10] MEDS: oxyCODONE /ACETAMINOPHEN 5-325MG TAB PO PRN (20:02)
[2020-08-10] MEDS: ENOXAPARIN 40 MG/0.4 ML INJ SUB-Q SCH (22:28)
[2020-08-11] MEDS: FUROSEMIDE 40 MG/4 ML INJ IV SCH ×2 (05:57→17:42)
[2020-08-11] MEDS: amLODIPine 10 MG TAB PO SCH (10:02)
[2020-08-11] MEDS: CLOPIDOGREL 75 MG TAB PO SCH (10:03)
[2020-08-11] MEDS: DEXAMETHASONE 4 MG TAB PO SCH (10:03)
[2020-08-11] MEDS: ASPIRIN EC 81 MG TAB PO SCH (10:03)
[2020-08-11] MEDS: LOSARTAN 50 MG TAB PO SCH (10:03)
[2020-08-11] MEDS: AMIODARONE 200 MG TAB PO SCH (10:03)
[2020-08-11] MEDS: FAMOTIDINE 20 MG TAB PO SCH ×2 (10:03→22:07)
[2020-08-11] MEDS: FENOFIBRATE 48 MG TAB PO SCH (10:03)
[2020-08-11] MEDS: oxyCODONE /ACETAMINOPHEN 5-325MG TAB PO PRN (16:34)
--- NOTE | 2020-08-11 17:30 | Progress Note ---
Assessment and Plan Atrial fibrillation, new onset pt has converted to sinus rhythm normal TSH at 0.369 NSVT on telemetry Nausea with vomiting Acute hypoxic respiratory failure COVID-19 infection Anemia 02/2018 Echocardiogram reported normal left ventricular systolic function, ejection fraction 55-60%. There was mild aortic stenosis. 07/2017 MPI -normal perfusion scan. -Continue amiodarone for maintenance of SR. -The patient will benefit from chronic oral anticoagulation, but will defer to primary internal medicine service / hematology for an assessment of bleeding risk with regards to any future long-term oral anticoagulation. -Will add oral metoprolol given NSVT on tele. Subjective Date of service: 08/11/20 Principal diagnosis: Covid pneumonia, acute respiratory failure with hypoxia Interval history: Patient is currently under COVID-19 rule out status; thus, he was not seen in person to preserve PPE and limit spread of infection. No cardiac events. Tele - reviewed, SR with NSVT x 8 beats Objective Vital Signs Temp Pulse Pulse Resp BP Pulse Ox 08/11/20 16:00 74 73 18 132/72 96 08/11/20 15:00 76 17 148/79 96 08/11/20 14:00 72 15 145/78 97 08/11/20 13:00 77 18 138/78 99 08/11/20 12:00 98.2 F 73 73 16 156/81 97 08/11/20 11:00 68 16 146/75 96 08/11/20 10:00 69 13 153/73 97 08/11/20 09:00 69 15 150/81 96 08/11/20 08:00 98.6 F 67 73 12 143/72 98 08/11/20 07:01 69 10 L 136/74 96 08/11/20 06:00 73 10 L 149/76 96 08/11/20 05:00 71 10 L 143/74 97 08/11/20 04:01 72 13 138/79 94 08/11/20 04:00 99.2 F 73 73 14 90 08/11/20 03:01 69 11 L 128/75 97 08/11/20 02:00 71 13 119/66 96 08/11/20 01:01 73 14 136/76 08/11/20 00:00 99.8 F H 71 74 14 124/64 97 08/10/20 23:00 74 16 117/69 97 08/10/20 22:25 78 19 159/94 98 08/10/20 22:01 86 19 159/94 95 08/10/20 21:00 82 20 153/81 96 08/10/20 20:02 17 08/10/20 20:01 86 21 159/77 94 08/10/20 20:00 81 81 21 96 08/10/20 19:58 99.6 F 08/10/20 19:01 87 23 116/68 94 08/10/20 18:01 87 18 120/55 96 - Physical Examination Narrative exam: Exam deferred due to COVID + status.
[2020-08-11] MEDS: ENOXAPARIN 40 MG/0.4 ML INJ SUB-Q SCH (22:06)
[2020-08-11] MEDS: METOPROLOL TARTRATE 25 MG TAB PO SCH (22:07)
[2020-08-12] MEDS: FUROSEMIDE 40 MG/4 ML INJ IV SCH ×2 (05:38→18:46)
[2020-08-12] MEDS: oxyCODONE /ACETAMINOPHEN 5-325MG TAB PO PRN (10:34)
[2020-08-12] MEDS: AMIODARONE 200 MG TAB PO SCH (11:08)
[2020-08-12] MEDS: amLODIPine 10 MG TAB PO SCH (11:08)
[2020-08-12] MEDS: CLOPIDOGREL 75 MG TAB PO SCH (11:10)
[2020-08-12] MEDS: FAMOTIDINE 20 MG TAB PO SCH ×2 (11:10→22:09)
[2020-08-12] MEDS: FENOFIBRATE 48 MG TAB PO SCH (11:10)
[2020-08-12] MEDS: METOPROLOL TARTRATE 25 MG TAB PO SCH ×2 (11:10→22:08)
[2020-08-12] MEDS: LOSARTAN 50 MG TAB PO SCH (11:11)
[2020-08-12] MEDS: DEXAMETHASONE 4 MG TAB PO SCH (11:11)
[2020-08-12] MEDS: ASPIRIN EC 81 MG TAB PO SCH (11:12)
--- NOTE | 2020-08-12 19:58 | Progress Note ---
Assessment and Plan Atrial fibrillation, new onset pt has converted to sinus rhythm normal TSH at 0.369 NSVT on telemetry Nausea with vomiting Acute hypoxic respiratory failure COVID-19 infection Anemia 02/2018 Echocardiogram reported normal left ventricular systolic function, ejection fraction 55-60%. There was mild aortic stenosis. 07/2017 MPI -normal perfusion scan. -Continue amiodarone for maintenance of SR. -The patient will benefit from chronic oral anticoagulation, but will defer to primary internal medicine service / hematology for an assessment of bleeding risk and anemia with regards to any future long-term oral anticoagulation. -Continue metoprolol for AF suppression and NSVT on tele. Subjective Date of service: 08/12/20 Principal diagnosis: Covid pneumonia, acute respiratory failure with hypoxia Interval history: Patient is COVID-19 + status; thus, he was not seen in person to preserve PPE and limit spread of infection. No cardiac events. Tele - reviewed, SR with NSVT x 5 beats Objective Vital Signs Temp Pulse Pulse Resp BP Pulse Ox 08/12/20 18:00 66 15 138/74 98 08/12/20 17:00 76 20 143/74 89 08/12/20 16:00 98.1 F 65 12 143/74 96 08/12/20 15:29 70 08/12/20 15:27 60 13 98 08/12/20 15:00 64 15 127/68 89 08/12/20 14:00 64 13 140/73 96 08/12/20 13:00 64 16 142/80 93 08/12/20 12:00 98.3 F 65 17 144/70 96 08/12/20 11:13 68 08/12/20 11:12 60 13 98 08/12/20 11:00 64 15 144/70 96 08/12/20 10:00 66 16 142/73 92 08/12/20 09:00 65 15 145/81 100 08/12/20 08:00 98.5 F 64 60 13 143/80 98 08/12/20 07:00 67 15 141/87 99 08/12/20 06:00 65 16 146/85 89 08/12/20 05:00 59 L 13 146/74 96 08/12/20 04:00 98.2 F 59 L 60 14 148/77 97 08/12/20 03:00 60 12 158/78 96 05/02/21 02:00 59 L 10 L 148/74 95 08/12/20 01:00 60 12 146/78 98 08/12/20 00:00 99.2 F 60 61 12 150/81 97 08/11/20 23:00 64 16 146/76 95 08/11/20 22:07 74 144/76 08/11/20 22:00 71 14 144/76 97 08/11/20 21:58 71 15 146/81 99 08/11/20 21:00 73 16 146/81 97 08/11/20 20:00 99.6 F 71 71 16 146/75 97 - Physical Examination Narrative exam: Exam deferred due to COVID + status.
--- NOTE | 2020-08-12 20:14 | Progress Note ---
Assessment and Plan - Patient Problems (1) Atrial fibrillation with rapid ventricular response Current Visit: Yes Status: Acute Plan to address problem: Cardiology team consulted, IV rate control therapy, continue medical management, CHADS 2Vasc Score:3. Pt is high fall risk. Will initiate therapy with aspirin (2) Coronavirus infection Current Visit: Yes Status: Acute Plan to address problem: Coronavirus protocol: Contact precaution, isolation precautions, IV steroid therapy, IV antibiotic therapy, supportive care. Infectious disease service consulted. Continue medical management. (3) Vascular dementia Current Visit: Yes Status: Acute Qualifiers: Dementia behavioral disturbance: without behavioral disturbance Qualified Code(s): F01.50 - Vascular dementia without behavioral disturbance Plan to address problem: Verbal prompting, verbal redirection, benzodiazepine therapy as clinically in dicated. (4) Cerebral atherosclerosis Current Visit: Yes Status: Acute Plan to address problem: Risk factor reduction, supportive care, antiplatelet therapy as clinically indicated. (5) Acute respiratory failure with hypoxia Current Visit: Yes Status: Acute Plan to address problem: Supplemental oxygen, pulse oximetry, nebulizer therapy, proposition while in bed, supportive care. (6) CHF exacerbation Current Visit: Yes Status: Acute Qualifiers: Heart failure type: combined systolic and diastolic Qualified Code(s): I50.43 - Acute on chronic combined systolic (congestive) and diastolic (congestive) heart failure Plan to address problem: Cardiology team consulted, continue conservative medical management as per cardiology team recommendations. (7) Hyperlipidemia Current Visit: Yes Status: Acute Plan to address problem: Low-cholesterol diet, statin therapy as clinically indicated. (8) DVT prophylaxis Current Visit: Yes Status: Acute Plan to address problem: SCD to bilateral lower extremities while in bed, prophylactic anticoagulation (9) Advance care planning Current Visit: Yes Status: Acute Plan to address problem: Disease education conducted, care plan discussed, prognosis discussed, patient is full code, +30 minutes. History Interval history: 75 YO Male HD #7 with Coronavirus Infection, Diastolic CHF, Vascular Dementia, Cerebral Atherosclerosis, Atrial Fib with RVR. Patient resting comfortably in bed. Patient has diminished cognition. No reported nursing events. Patient denies pain. Pt convalesced well overnight. Hospitalist Physical - Constitutional Vitals: Temp Pulse Resp BP Pulse Ox 98.1 F 66 15 138/74 98 08/12/20 16:00 08/12/20 18:00 08/12/20 18:00 08/12/20 18:00 08/12/20 18:00 General appearance: Present: mild distress, well-nourished - EENT Eyes: Present: PERRL, EOM intact ENT: hearing intact - Neck Neck: Present: supple - Respiratory Respiratory effort: normal Respiratory: bilateral: CTA - Cardiovascular Rhythm: regular - Extremities Extremities: no ischemia Peripheral Pulses: within normal limits - Abdominal General gastrointestinal: soft, non-tender, non-distended - Integumentary Integumentary: Present: clear - Psychiatric Psychiatric: cooperative - Neurologic Neurologic: CNII-XII intact HEART Score - HEART Score Troponin: Troponin T 0.127 ng/mL (0.00-0.029) H* 08/05/20 16:25 Results - Labs CBC & Chem 7: 08/10/20 12:07 08/10/20 12:07 Labs: Laboratory Last Values WBC 13.9 K/mm3 (4.5-11.0) H 08/10/20 12:07 RBC 2.90 M/mm3 (3.65-5.03) L 08/10/20 12:07 Hgb 7.9 gm/dl (11.8-15.2) L 08/10/20 12:07 Hct 23.4 % (35.5-45.6) L 08/10/20 12:07 MCV 81 fl (84-94) L 08/10/20 12:07 MCH 27 pg (28-32) L 08/10/20 12:07 MCHC 34 % (32-34) 08/10/20 12:07 RDW 17.6 % (13.2-15.2) H 08/10/20 12:07 Plt Count 617 K/mm3 (140-440) H 08/10/20 12:07 Add Manual Diff Complete 08/10/20 12:07 Total Counted 100 08/10/20 12:07 Seg Neutrophils % Publishing Editor 08/10/20 12:07 Seg Neuts % (Manual) 95.0 % (40.0-70.0) H 08/08/20 17:08 Lymphocytes % (Manual) 4.0 % (13.4-35.0) L 08/10/20 12:07 Monocytes % (Manual) 2.0 % (0.0-7.3) 08/08/20 17:08 Nucleated RBC % Not Reportable 08/10/20 12:07 Seg Neutrophils # Man 13.3 K/mm3 (1.8-7.7) H 08/10/20 12:07 Band Neutrophils # 0.0 K/mm3 08/10/20 12:07 Lymphocytes # (Manual) 0.6 K/mm3 (1.2-5.4) L 08/10/20 12:07 Abs React Lymphs (Man) 0.0 K/mm3 08/10/20 12:07 Monocytes # (Manual) 0.0 K/mm3 (0.0-0.8) 08/10/20 12:07 Eosinophils # (Manual) 0.0 K/mm3 (0.0-0.4) 08/10/20 12:07 Basophils # (Manual) 0.0 K/mm3 (0.0-0.1) 08/10/20 12:07 Metamyelocytes # 0.0 K/mm3 08/10/20 12:07 Myelocytes # 0.0 K/mm3 08/10/20 12:07 Promyelocytes # 0.0 K/mm3 08/10/20 12:07 Blast Cells # 0.0 K/mm3 08/10/20 12:07 WBC Morphology Not Reportable 08/10/20 12:07 Hypersegmented Neuts Not Reportable 08/10/20 12:07 Hyposegmented Neuts Not Reportable 08/10/20 12:07 Hypogranular Neuts Not Reportable 08/10/20 12:07 Smudge Cells Not Reportable 08/10/20 12:07 Toxic Granulation Not Reportable 08/10/20 12:07 Toxic Vacuolation Not Reportable 08/10/20 12:07 Dohle Bodies Not Reportable 08/10/20 12:07 Pelger-Huet Anomaly Not Reportable 08/10/20 12:07 Cheri Rods Not Reportable 08/10/20 12:07 Platelet Estimate Consistent w auto 08/10/20 12:07 Clumped Platelets Not Reportable 08/10/20 12:07 Plt Clumps, EDTA Not Reportable 08/10/20 12:07 Large Platelets Not Reportable 08/10/20 12:07 Giant Platelets Not Reportable 08/10/20 12:07 Platelet Satelliting Not Reportable 08/10/20 12:07 Plt Morphology Comment Not Reportable 08/10/20 12:07 RBC Morphology Not Reportable 08/10/20 12:07 Dimorphic RBCs Not Reportable 08/10/20 12:07 Polychromasia Not Reportable 08/10/20 12:07 Hypochromasia Not Reportable 08/10/20 12:07 Poikilocytosis Not Reportable 08/10/20 12:07 Anisocytosis Not Reportable 08/10/20 12:07 Microcytosis Not Reportable 08/10/20 12:07 Macrocytosis Not Reportable 08/10/20 12:07 Spherocytes Not Reportable 08/10/20 12:07 Pappenheimer Bodies Not Reportable 08/10/20 12:07 Sickle Cells Not Reportable 08/10/20 12:07 Target Cells Not Reportable 08/10/20 12:07 Tear Drop Cells Not Reportable 08/10/20 12:07 Ovalocytes Not Reportable 08/10/20 12:07 Helmet Cells Not Reportable 08/10/20 12:07 [place] Bodies Not Reportable 08/10/20 12:07 [place] Rings Not Reportable 08/10/20 12:07 [place] Cells Not Reportable 08/10/20 12:07 Bite Cells Not Reportable 08/10/20 12:07 Crenated Cell Not Reportable 08/10/20 12:07 Elliptocytes Not Reportable 08/10/20 12:07 Acanthocytes (Spur) Not Reportable 08/10/20 12:07 Rouleaux Not Reportable 08/10/20 12:07 Hemoglobin C Crystals Not Reportable 08/10/20 12:07 Schistocytes Rare 08/10/20 12:07 Malaria parasites Not Reportable 08/10/20 12:07 Mc Bodies Not Reportable 08/10/20 12:07 Hem Pathologist Commnt No 08/10/20 12:07 D-Dimer 1218.20 ng/mlDDU (0-234) H 08/05/20 16:25 Sodium 138 mmol/L (137-145) 08/10/20 12:07 Potassium 2.9 mmol/L (3.6-5.0) L* D 08/10/20 12:07 Chloride 96.7 mmol/L (98-107) L 08/10/20 12:07 Carbon Dioxide 28 mmol/L (22-30) 08/10/20 12:07 Anion Gap 16 mmol/L 08/10/20 12:07 BUN 24 mg/dL (9-20) H 08/10/20 12:07 Creatinine 1.3 mg/dL (0.8-1.3) 08/10/20 12:07 Estimated GFR > 60 ml/min 08/10/20 12:07 BUN/Creatinine Ratio 18 % 08/10/20 12:07 Glucose 100 mg/dL (75-100) 08/10/20 12:07 POC Glucose 132 mg/dL (70-105) H 08/08/20 17:08 Hemoglobin A1c < 4.0 % (4-6) L 08/06/20 06:55 Lactic Acid 0.50 mmol/L (0.7-2.0) L 08/05/20 19:51 Calcium 9.2 mg/dL (8.4-10.2) 08/10/20 12:07 Magnesium 1.80 mg/dL (1.7-2.3) 08/09/20 14:46 Iron 21 ug/dL (49-181) L 08/05/20 23:23 TIBC 232 mcg/dL (250-450) L 08/05/20 23:23 % Saturation 9.05 % 08/05/20 23:23 Transferrin 189 mg/dl (180-329) 08/05/20 23:23 Ferritin 817.3 ng/mL (30.0-300.0) H 08/05/20 16:25 Total Bilirubin 0.30 mg/dL (0.1-1.2) 08/05/20 16:25 AST 12 units/L (5-40) 08/05/20 16:25 ALT < 5 units/L (7-56) L 08/05/20 16:25 Alkaline Phosphatase 54 units/L (35-129) 08/05/20 16:25 Lactate Dehydrogenase 225 units/L (91-180) H 08/05/20 16:25 Troponin T 0.127 ng/mL (0.00-0.029) H* 08/05/20 16:25 C-Reactive Protein 8.30 mg/dL (0.00-1.30) H 08/05/20 16:25 NT-Pro-B Natriuret Pep > 96296 pg/mL (0-900) H 08/05/20 16:25 Total Protein 6.9 g/dL (6.3-8.2) 08/05/20 16:25 Albumin 3.5 g/dL (3.9-5) L 08/05/20 16:25 Albumin/Globulin Ratio 1.0 % 08/05/20 16:25 Triglycerides 93 mg/dL (2-149) 08/05/20 16:25 Cholesterol 154 mg/dL (50-199) 08/05/20 16:25 LDL Cholesterol Direct 72 mg/dL (50-130) 08/05/20 16:25 HDL Cholesterol 61 mg/dL (40-59) H 08/05/20 16:25 Cholesterol/HDL Ratio 2.52 % 08/05/20 16:25 Vitamin B12 753.2 pg/mL (211-911) 08/05/20 23:23 RBC Folic Acid >1000 ng/mL (>280) 08/05/20 23:23 Procalcitonin 0.31 ng/mL (<0.15) 08/05/20 16:25 TSH 0.369 mlU/mL (0.270-4.200) 08/09/20 14:46 Coronavirus (PCR) Positive (Negative) A 08/05/20 10:32 San/IV: Voiding Method Condom Catheter Active Medications - Current Medications Current Medications: Generic Name Dose Route Start Last Admin Trade Name Freq PRN Reason Stop Dose Admin Acetaminophen 650 mg 08/05/20 22:08 Acetaminophen 325 Mg Tab PO Q4H PRN Pain MILD(1-3)/Fever >100.5/REDD Amiodarone HCl 200 mg 08/10/20 12:00 08/12/20 11:08 Amiodarone 200 Mg Tab PO 200 mg QDAY DENISE Administration Amlodipine Besylate 10 mg 08/06/20 10:00 08/12/20 11:08 Amlodipine 10 Mg Tab PO 10 mg QAM DENISE Administration Aspirin 81 mg 08/06/20 10:00 08/12/20 11:12 Aspirin Ec 81 Mg Tab PO 81 mg QDAY DENISE Administration Atorvastatin Calcium 80 mg 08/06/20 22:00 08/11/20 22:06 Atorvastatin 40 Mg Tab PO 80 mg QHS DENISE Administration Clopidogrel Bisulfate 75 mg 08/06/20 10:00 08/12/20 11:10 Clopidogrel 75 Mg Tab PO 75 mg QDAY DENISE Administration Dexamethasone 8 mg 08/09/20 10:00 08/12/20 11:11 Dexamethasone 4 Mg Tab PO 08/14/20 12:00 8 mg DAILY DENISE Administration Enoxaparin Sodium 40 mg 08/06/20 22:00 08/11/20 22:06 Enoxaparin 40 Mg/0.4 Ml Inj SUB-Q 40 mg QDAY@2200 DENISE Administration Protocol Famotidine 20 mg 08/05/20 22:15 08/12/20 11:10 Famotidine 20 Mg Tab PO 20 mg BID DENISE Administration Fenofibrate 48 mg 08/06/20 10:00 08/12/20 11:10 Fenofibrate 48 Mg Tab PO 48 mg QDAY DENISE Administration Furosemide 40 mg 08/06/20 06:00 08/12/20 18:46 Furosemide 40 Mg/4 Ml Inj IV 40 mg 0600,1800 DENISE Administration Hydralazine HCl 10 mg 08/08/20 14:44 08/10/20 11:14 Hydralazine 20 Mg/1 Ml Inj IV 10 mg Q4HR PRN Administration Hypertension Hydromorphone HCl 0.5 mg 08/05/20 22:25 08/08/20 22:40 Hydromorphone 1 Mg/1 Ml Inj IV 0.5 mg Q3H PRN Administration Pain , Severe (7-10) Isosorbide Mononitrate 30 mg 08/06/20 10:00 08/12/20 11:11 Isosorbide Mononitrate Er 30 Mg Tab PO 30 mg DAILY DENISE Administration Losartan Potassium 100 mg 08/06/20 10:00 08/12/20 11:11 Losartan 50 Mg Tab PO 100 mg QDAY DENISE Administration Metoprolol Tartrate 25 mg 08/11/20 22:00 08/12/20 11:10 Metoprolol Tartrate 25 Mg Tab PO 25 mg BID DENISE Administration Ondansetron HCl 4 mg 08/05/20 22:25 08/10/20 08:07 Ondansetron 4 Mg/2 Ml Inj IV 4 mg Q8H PRN Administration Nausea And Vomiting Oxycodone/Acetaminophen 1 tab 08/05/20 22:25 08/12/20 10:34 Oxycodone /Acetaminophen 5-325mg Tab PO 1 tab Q6H PRN Administration Pain, Moderate (4-6) Sodium Chloride 10 ml 08/06/20 10:00 08/12/20 11:10 Sodium Chloride 0.9% 10 Ml Flush Syringe IV 10 ml BID DENISE Administration Sodium Chloride 10 ml 08/05/20 22:25 Sodium Chloride 0.9% 10 Ml Flush Syringe IV PRN PRN LINE FLUSH Tramadol HCl 50 mg 08/05/20 22:08 08/10/20 18:18 Tramadol 50 Mg Tab PO 50 mg Q12H PRN Administration Pain, Moderate (4-6) Nutrition/Malnutrition Assess - Dietary Evaluation Nutrition/Malnutrition Findings: Nutrition Notes Start: 08/06/20 12:34 Freq: Status: Active Protocol: Document 08/09/20 13:07 CW (Rec: 08/09/20 13:14 CW [email or web address]) Nutrition Notes Initial or Follow up Reassessment Current Diagnosis Coronary Artery Disease, Hypertension,Heart Failure, Respiratory Failure, Hyperlipidemia Other Pertinent Diagnosis SIRS, COVID, pneu, dementia Current Diet Cardiac Labs/Tests No new labs Pertinent Medications Zofran Decadron Lasix Height 6 ft Weight 67.54 kg [place] Body Weight (kg) 80.90 BMI 20.2 Weight Status Underweight Subjective/Other Information F/U for intakes. Pt did not answer phone x2. Pt continues to not eat much of meals but will drink. Pt does not like Ensure. Will attempt Ensure clear for better tolerance. Percent of energy/protein needs met: 0%/0% Burn Absent Trauma Absent GI Symptoms Nausea Skin Integrity/Comment sacral pressure ulcer Current % PO Negligible Minimum of two criteria No Reduced [employer] Strength Measurably Reduced (severe) #2 Nutrition Diagnosis Inadequate oral intake Diagnosis Progress(for reassessment Continues documentation) Is patient on ventilator? No Is Patient Ambulatory and/or Out of Bed No REE-([place]-St Jeor-confined to bed) 7272.228 Calculation Used for Recommendations [facility] Additional Notes Protein: (1.25-1.5g/kg) 84- 101g Fluid: 1ml/kcal or per Nutrition Intervention Change Diet Order: Continue Add Supplement/Snack (indicate name/kcal Ensure Clear BID /protein ) Provides kCal: 480 Provides Protein (gm) 16 Goal #1 Meet at least 75% of protein and energy needs via PO Anticipated Discharge Needs: Cardiac Follow-Up By: 08/13/20 Additional Comments F/U for intakes and Ensure clear tolerance
--- NOTE | 2020-08-12 20:17 | Progress Note ---
Assessment and Plan - Patient Problems (1) Atrial fibrillation with rapid ventricular response Current Visit: Yes Status: Acute Plan to address problem: Cardiology team consulted, IV rate control therapy, continue medical management, CHADS 2Vasc Score:3. Pt is high fall risk. Will continue therapy with aspirin. Continue rate control. (2) Coronavirus infection Current Visit: Yes Status: Acute Plan to address problem: Coronavirus protocol: Contact precaution, isolation precautions, IV steroid therapy, IV antibiotic therapy, supportive care. Infectious disease service consulted. Continue medical management. (3) Vascular dementia Current Visit: Yes Status: Acute Qualifiers: Dementia behavioral disturbance: without behavioral disturbance Qualified Code(s): F01.50 - Vascular dementia without behavioral disturbance Plan to address problem: Verbal prompting, verbal redirection, benzodiazepine therapy as clinically indicated. (4) Cerebral atherosclerosis Current Visit: Yes Status: Acute Plan to address problem: Risk factor reduction, supportive care, antiplatelet therapy as clinically indicated. (5) Acute respiratory failure with hypoxia Current Visit: Yes Status: Acute Plan to address problem: Supplemental oxygen, pulse oximetry, nebulizer therapy, proposition while in bed, supportive care. (6) CHF exacerbation Current Visit: Yes Status: Acute Qualifiers: Heart failure type: combined systolic and diastolic Qualified Code(s): I50.43 - Acute on chronic combined systolic (congestive) and diastolic (congestive) heart failure Plan to address problem: Cardiology team consulted, continue conservative medical management as per cardiology team recommendations. (7) Hyperlipidemia Current Visit: Yes Status: Acute Plan to address problem: Low-cholesterol diet, statin therapy as clinically indicated. (8) DVT prophylaxis Current Visit: Yes Status: Acute Plan to address problem: SCD to bilateral lower extremities while in bed, prophylactic anticoagulation (9) Advance care planning Current Visit: Yes Status: Acute Plan to address problem: Disease education conducted, care plan discussed, prognosis discussed, patient is full code, +30 minutes. History Interval history: 75 YO Male HD #8 with Coronavirus Infection, Diastolic CHF, Vascular Dementia, Cerebral Atherosclerosis, Atrial Fib with RVR. Patient resting comfortably in bed. Patient has diminished cognition. No reported nursing events. Patient denies pain. Pt convalesced well overnight. Hospitalist Physical - Constitutional Vitals: Temp Pulse Resp BP Pulse Ox 98.1 F 66 15 138/74 98 08/12/20 16:00 08/12/20 18:00 08/12/20 18:00 08/12/20 18:00 08/12/20 18:00 General appearance: Present: mild distress, well-nourished - EENT Eyes: Present: PERRL, EOM intact ENT: hearing intact - Neck Neck: Present: supple - Respiratory Respiratory effort: labored Respiratory: bilateral: CTA - Cardiovascular Rhythm: regular Heart Sounds: Present: S1 & S2 - Extremities Extremities: no ischemia Peripheral Pulses: within normal limits - Abdominal General gastrointestinal: soft, non-tender, non-distended - Integumentary Integumentary: Present: clear, dry - Psychiatric Psychiatric: cooperative - Neurologic Neurologic: CNII-XII intact HEART Score - HEART Score Troponin: Troponin T 0.127 ng/mL (0.00-0.029) H* 08/05/20 16:25 Results - Labs CBC & Chem 7: 08/10/20 12:07 08/10/20 12:07 Labs: Laboratory Last Values WBC 13.9 K/mm3 (4.5-11.0) H 08/10/20 12:07 RBC 2.90 M/mm3 (3.65-5.03) L 08/10/20 12:07 Hgb 7.9 gm/dl (11.8-15.2) L 08/10/20 12:07 Hct 23.4 % (35.5-45.6) L 08/10/20 12:07 MCV 81 fl (84-94) L 08/10/20 12:07 MCH 27 pg (28-32) L 08/10/20 12:07 MCHC 34 % (32-34) 08/10/20 12:07 RDW 17.6 % (13.2-15.2) H 08/10/20 12:07 Plt Count 617 K/mm3 (140-440) H 08/10/20 12:07 Add Manual Diff Complete 08/10/20 12:07 Total Counted 100 08/10/20 12:07 Seg Neutrophils % Medical Lab Scientist 08/10/20 12:07 Seg Neuts % (Manual) 95.0 % (40.0-70.0) H 08/08/20 17:08 Lymphocytes % (Manual) 4.0 % (13.4-35.0) L 08/10/20 12:07 Monocytes % (Manual) 2.0 % (0.0-7.3) 08/08/20 17:08 Nucleated RBC % Not Reportable 08/10/20 12:07 Seg Neutrophils # Man 13.3 K/mm3 (1.8-7.7) H 08/10/20 12:07 Band Neutrophils # 0.0 K/mm3 08/10/20 12:07 Lymphocytes # (Manual) 0.6 K/mm3 (1.2-5.4) L 08/10/20 12:07 Abs React Lymphs (Man) 0.0 K/mm3 08/10/20 12:07 Monocytes # (Manual) 0.0 K/mm3 (0.0-0.8) 08/10/20 12:07 Eosinophils # (Manual) 0.0 K/mm3 (0.0-0.4) 08/10/20 12:07 Basophils # (Manual) 0.0 K/mm3 (0.0-0.1) 08/10/20 12:07 Metamyelocytes # 0.0 K/mm3 08/10/20 12:07 Myelocytes # 0.0 K/mm3 08/10/20 12:07 Promyelocytes # 0.0 K/mm3 08/10/20 12:07 Blast Cells # 0.0 K/mm3 08/10/20 12:07 WBC Morphology Not Reportable 08/10/20 12:07 Hypersegmented Neuts Not Reportable 08/10/20 12:07 Hyposegmented Neuts Not Reportable 08/10/20 12:07 Hypogranular Neuts Not Reportable 08/10/20 12:07 Smudge Cells Not Reportable 08/10/20 12:07 Toxic Granulation Not Reportable 08/10/20 12:07 Toxic Vacuolation Not Reportable 08/10/20 12:07 Dohle Bodies Not Reportable 08/10/20 12:07 Pelger-Huet Anomaly Not Reportable 08/10/20 12:07 Cheri Rods Not Reportable 08/10/20 12:07 Platelet Estimate Consistent w auto 08/10/20 12:07 Clumped Platelets Not Reportable 08/10/20 12:07 Plt Clumps, EDTA Not Reportable 08/10/20 12:07 Large Platelets Not Reportable 08/10/20 12:07 Giant Platelets Not Reportable 08/10/20 12:07 Platelet Satelliting Not Reportable 08/10/20 12:07 Plt Morphology Comment Not Reportable 08/10/20 12:07 RBC Morphology Not Reportable 08/10/20 12:07 Dimorphic RBCs Not Reportable 08/10/20 12:07 Polychromasia Not Reportable 08/10/20 12:07 Hypochromasia Not Reportable 08/10/20 12:07 Poikilocytosis Not Reportable 08/10/20 12:07 Anisocytosis Not Reportable 08/10/20 12:07 Microcytosis Not Reportable 08/10/20 12:07 Macrocytosis Not Reportable 08/10/20 12:07 Spherocytes Not Reportable 08/10/20 12:07 Pappenheimer Bodies Not Reportable 08/10/20 12:07 Sickle Cells Not Reportable 08/10/20 12:07 Target Cells Not Reportable 08/10/20 12:07 Tear Drop Cells Not Reportable 08/10/20 12:07 Ovalocytes Not Reportable 08/10/20 12:07 Helmet Cells Not Reportable 08/10/20 12:07 [place] Bodies Not Reportable 08/10/20 12:07 Speer Rings Not Reportable 08/10/20 12:07 [place] Cells Not Reportable 08/10/20 12:07 Bite Cells Not Reportable 08/10/20 12:07 Crenated Cell Not Reportable 08/10/20 12:07 Elliptocytes Not Reportable 08/10/20 12:07 Acanthocytes (Spur) Not Reportable 08/10/20 12:07 Rouleaux Not Reportable 08/10/20 12:07 Hemoglobin C Crystals Not Reportable 08/10/20 12:07 Schistocytes Rare 08/10/20 12:07 Malaria parasites Not Reportable 08/10/20 12:07 Mc Bodies Not Reportable 08/10/20 12:07 Hem Pathologist Commnt No 08/10/20 12:07 D-Dimer 1218.20 ng/mlDDU (0-234) H 08/05/20 16:25 Sodium 138 mmol/L (137-145) 08/10/20 12:07 Potassium 2.9 mmol/L (3.6-5.0) L* D 08/10/20 12:07 Chloride 96.7 mmol/L (98-107) L 08/10/20 12:07 Carbon Dioxide 28 mmol/L (22-30) 08/10/20 12:07 Anion Gap 16 mmol/L 08/10/20 12:07 BUN 24 mg/dL (9-20) H 08/10/20 12:07 Creatinine 1.3 mg/dL (0.8-1.3) 08/10/20 12:07 Estimated GFR > 60 ml/min 08/10/20 12:07 BUN/Creatinine Ratio 18 % 08/10/20 12:07 Glucose 100 mg/dL (75-100) 08/10/20 12:07 POC Glucose 132 mg/dL (70-105) H 08/08/20 17:08 Hemoglobin A1c < 4.0 % (4-6) L 08/06/20 06:55 Lactic Acid 0.50 mmol/L (0.7-2.0) L 08/05/20 19:51 Calcium 9.2 mg/dL (8.4-10.2) 08/10/20 12:07 Magnesium 1.80 mg/dL (1.7-2.3) 08/09/20 14:46 Iron 21 ug/dL (49-181) L 08/05/20 23:23 TIBC 232 mcg/dL (250-450) L 08/05/20 23:23 % Saturation 9.05 % 08/05/20 23:23 Transferrin 189 mg/dl (180-329) 08/05/20 23:23 Ferritin 817.3 ng/mL (30.0-300.0) H 08/05/20 16:25 Total Bilirubin 0.30 mg/dL (0.1-1.2) 08/05/20 16:25 AST 12 units/L (5-40) 08/05/20 16:25 ALT < 5 units/L (7-56) L 08/05/20 16:25 Alkaline Phosphatase 54 units/L (35-129) 08/05/20 16:25 Lactate Dehydrogenase 225 units/L (91-180) H 08/05/20 16:25 Troponin T 0.127 ng/mL (0.00-0.029) H* 08/05/20 16:25 C-Reactive Protein 8.30 mg/dL (0.00-1.30) H 08/05/20 16:25 NT-Pro-B Natriuret Pep > 43288 pg/mL (0-900) H 08/05/20 16:25 Total Protein 6.9 g/dL (6.3-8.2) 08/05/20 16:25 Albumin 3.5 g/dL (3.9-5) L 08/05/20 16:25 Albumin/Globulin Ratio 1.0 % 08/05/20 16:25 Triglycerides 93 mg/dL (2-149) 08/05/20 16:25 Cholesterol 154 mg/dL (50-199) 08/05/20 16:25 LDL Cholesterol Direct 72 mg/dL (50-130) 08/05/20 16:25 HDL Cholesterol 61 mg/dL (40-59) H 08/05/20 16:25 Cholesterol/HDL Ratio 2.52 % 08/05/20 16:25 Vitamin B12 753.2 pg/mL (211-911) 08/05/20 23:23 RBC Folic Acid >1000 ng/mL (>280) 08/05/20 23:23 Procalcitonin 0.31 ng/mL (<0.15) 08/05/20 16:25 TSH 0.369 mlU/mL (0.270-4.200) 08/09/20 14:46 Coronavirus (PCR) Positive (Negative) A 08/05/20 10:32 San/IV: Voiding Method Condom Catheter Active Medications - Current Medications Current Medications: Generic Name Dose Route Start Last Admin Trade Name Freq PRN Reason Stop Dose Admin Acetaminophen 650 mg 08/05/20 22:08 Acetaminophen 325 Mg Tab PO Q4H PRN Pain MILD(1-3)/Fever >100.5/REDD Amiodarone HCl 200 mg 08/10/20 12:00 08/12/20 11:08 Amiodarone 200 Mg Tab PO 200 mg QDAY DENISE Administration Amlodipine Besylate 10 mg 08/06/20 10:00 08/12/20 11:08 Amlodipine 10 Mg Tab PO 10 mg QAM DENISE Administration Aspirin 81 mg 08/06/20 10:00 08/12/20 11:12 Aspirin Ec 81 Mg Tab PO 81 mg QDAY DENISE Administration Atorvastatin Calcium 80 mg 08/06/20 22:00 08/11/20 22:06 Atorvastatin 40 Mg Tab PO 80 mg QHS DENISE Administration Clopidogrel Bisulfate 75 mg 08/06/20 10:00 08/12/20 11:10 Clopidogrel 75 Mg Tab PO 75 mg QDAY DENISE Administration Dexamethasone 8 mg 08/09/20 10:00 08/12/20 11:11 Dexamethasone 4 Mg Tab PO 08/14/20 12:00 8 mg DAILY DENISE Administration Enoxaparin Sodium 40 mg 08/06/20 22:00 08/11/20 22:06 Enoxaparin 40 Mg/0.4 Ml Inj SUB-Q 40 mg QDAY@2200 DENISE Administration Protocol Famotidine 20 mg 08/05/20 22:15 08/12/20 11:10 Famotidine 20 Mg Tab PO 20 mg BID DENISE Administration Fenofibrate 48 mg 08/06/20 10:00 08/12/20 11:10 Fenofibrate 48 Mg Tab PO 48 mg QDAY DENISE Administration Furosemide 40 mg 08/06/20 06:00 08/12/20 18:46 Furosemide 40 Mg/4 Ml Inj IV 40 mg 0600,1800 DENISE Administration Hydralazine HCl 10 mg 08/08/20 14:44 08/10/20 11:14 Hydralazine 20 Mg/1 Ml Inj IV 10 mg Q4HR PRN Administration Hypertension Hydromorphone HCl 0.5 mg 08/05/20 22:25 08/08/20 22:40 Hydromorphone 1 Mg/1 Ml Inj IV 0.5 mg Q3H PRN Administration Pain , Severe (7-10) Isosorbide Mononitrate 30 mg 08/06/20 10:00 08/12/20 11:11 Isosorbide Mononitrate Er 30 Mg Tab PO 30 mg DAILY DENISE Administration Losartan Potassium 100 mg 08/06/20 10:00 08/12/20 11:11 Losartan 50 Mg Tab PO 100 mg QDAY DENISE Administration Metoprolol Tartrate 25 mg 08/11/20 22:00 08/12/20 11:10 Metoprolol Tartrate 25 Mg Tab PO 25 mg BID DENISE Administration Ondansetron HCl 4 mg 08/05/20 22:25 08/10/20 08:07 Ondansetron 4 Mg/2 Ml Inj IV 4 mg Q8H PRN Administration Nausea And Vomiting Oxycodone/Acetaminophen 1 tab 08/05/20 22:25 08/12/20 10:34 Oxycodone /Acetaminophen 5-325mg Tab PO 1 tab Q6H PRN Administration Pain, Moderate (4-6) Sodium Chloride 10 ml 08/06/20 10:00 08/12/20 11:10 Sodium Chloride 0.9% 10 Ml Flush Syringe IV 10 ml BID DENISE Administration Sodium Chloride 10 ml 08/05/20 22:25 Sodium Chloride 0.9% 10 Ml Flush Syringe IV PRN PRN LINE FLUSH Tramadol HCl 50 mg 08/05/20 22:08 08/10/20 18:18 Tramadol 50 Mg Tab PO 50 mg Q12H PRN Administration Pain, Moderate (4-6) Nutrition/Malnutrition Assess - Dietary Evaluation Nutrition/Malnutrition Findings: Nutrition Notes Start: 08/06/20 12:34 Freq: Status: Active Protocol: Document 08/09/20 13:07 CW (Rec: 08/09/20 13:14 CW [id number]) Nutrition Notes Initial or Follow up Reassessment Current Diagnosis Coronary Artery Disease, Hypertension,Heart Failure, Respiratory Failure, Hyperlipidemia Other Pertinent Diagnosis SIRS, COVID, pneu, dementia Current Diet Cardiac Labs/Tests No new labs Pertinent Medications Zofran Decadron Lasix Height 6 ft Weight 67.54 kg [place] Body Weight (kg) 80.90 BMI 20.2 Weight Status Underweight Subjective/Other Information F/U for intakes. Pt did not answer phone x2. Pt continues to not eat much of meals but will drink. Pt does not like Ensure. Will attempt Ensure clear for better tolerance. Percent of energy/protein needs met: 0%/0% Burn Absent Trauma Absent GI Symptoms Nausea Skin Integrity/Comment sacral pressure ulcer Current % PO Negligible Minimum of two criteria No Reduced Swing Frame Grinder Operator Strength Measurably Reduced (severe) #2 Nutrition Diagnosis Inadequate oral intake Diagnosis Progress(for reassessment Continues documentation) Is patient on ventilator? No Is Patient Ambulatory and/or Out of Bed No REE-([facility]-confined to bed) 9932.082 Calculation Used for Recommendations [facility] Additional Notes Protein: (1.25-1.5g/kg) 84- 101g Fluid: 1ml/kcal or per MD Nutrition Intervention Change Diet Order: Continue Add Supplement/Snack (indicate name/kcal Ensure Clear BID /protein ) Provides kCal: 480 Provides Protein (gm) 16 Goal #1 Meet at least 75% of protein and energy needs via PO Anticipated Discharge Needs: Cardiac Follow-Up By: 08/13/20 Additional Comments F/U for intakes and Ensure clear tolerance
[2020-08-12] MEDS: traMADol 50 MG TAB PO PRN (22:08)
[2020-08-12] MEDS: ENOXAPARIN 40 MG/0.4 ML INJ SUB-Q SCH (22:09)
[2020-08-13] MEDS: FUROSEMIDE 40 MG/4 ML INJ IV SCH ×2 (05:26→18:15)
[2020-08-13] MEDS: traMADol 50 MG TAB PO PRN ×3 (05:31→17:25)
[2020-08-13] MEDS: amLODIPine 10 MG TAB PO SCH (09:31)
[2020-08-13] MEDS: LOSARTAN 50 MG TAB PO SCH (09:31)
[2020-08-13] MEDS: FENOFIBRATE 48 MG TAB PO SCH (09:31)
[2020-08-13] MEDS: DEXAMETHASONE 4 MG TAB PO SCH (09:32)
[2020-08-13] MEDS: FAMOTIDINE 20 MG TAB PO SCH ×2 (09:32→21:52)
[2020-08-13] MEDS: METOPROLOL TARTRATE 25 MG TAB PO SCH ×2 (09:32→21:53)
[2020-08-13] MEDS: CLOPIDOGREL 75 MG TAB PO SCH (09:32)
[2020-08-13] MEDS: ASPIRIN EC 81 MG TAB PO SCH (09:32)
[2020-08-13] MEDS: AMIODARONE 200 MG TAB PO SCH (09:32)
--- NOTE | 2020-08-13 13:51 | Progress Note ---
Assessment and Plan - Patient Problems (1) Acute respiratory failure with hypoxia Current Visit: Yes Status: Acute Plan to address problem: Patient from a [facility] who presented with shortness of breath, hypoxemia and bilateral pulmonary infiltrates worse on the right. He is under treatment for positive COVID-19 pneumonia. (2) Paroxysmal atrial fibrillation Current Visit: Yes Status: Acute Plan to address problem: Patient has paroxysmal atrial fibrillation, new onset during this presentation with acute Covid pneumonia. He has returned to a stable sinus rhythm on medical therapy for atrial fibrillation suppression. Echocardiogram during this admission has reported well-preserved left ventricular systolic ejection fraction of 55 to 60%. He is not a candidate for oral anticoagulation at this time due to a persistent severe anemia. Subjective Date of service: 08/13/20 Principal diagnosis: Covid pneumonia, acute respiratory failure with hypoxia Interval history: There are no new cardiac complaints, patient is comfortable in no acute distress. Objective Vital Signs Temp Pulse Pulse Resp BP Pulse Ox 08/13/20 13:00 69 17 123/79 99 08/13/20 12:01 63 17 100/74 99 08/13/20 12:00 97.5 F L 61 61 13 96 08/13/20 11:00 67 12 143/75 99 08/13/20 10:00 61 13 160/70 100 08/13/20 09:00 62 13 155/76 100 08/13/20 08:00 97.7 F 62 61 13 146/76 96 08/13/20 07:00 60 12 143/73 97 08/13/20 06:00 60 13 151/62 95 08/13/20 05:31 13 08/13/20 05:00 58 L 14 143/72 95 08/13/20 04:00 97.6 F 61 61 13 160/88 96 08/13/20 03:50 61 08/13/20 03:00 61 12 147/84 99 08/13/20 02:00 64 15 157/85 97 08/13/20 01:00 71 13 144/89 96 08/13/20 00:19 65 08/13/20 00:00 97.6 F 66 66 14 141/83 93 08/12/20 23:00 67 11 L 150/87 99 08/12/20 22:08 68 13 141/81 08/12/20 22:00 66 14 141/81 93 08/12/20 21:00 70 16 144/82 97 08/12/20 20:00 98.6 F 71 14 139/75 96 08/12/20 19:34 68 08/12/20 19:00 67 13 136/71 97 08/12/20 18:46 66 12 138/74 99 08/12/20 18:00 66 15 138/74 98 08/12/20 17:00 76 20 143/74 89 08/12/20 16:00 98.1 F 65 12 143/74 96 08/12/20 15:29 70 08/12/20 15:27 60 13 98 08/12/20 15:00 64 15 127/68 89 08/12/20 14:00 64 13 140/73 96 - Physical Examination General: No Apparent Distress HEENT: Positive: PERRL Neck: Positive: neck supple Cardiac: Positive: Irregularly Regular Lungs: Positive: Decreased Breath Sounds Neuro: Positive: Weakness (Generalized lethargy and fatigue) Abdomen: Positive: Soft Skin: Positive: Clear Extremities: Absent: edema - Imaging and Cardiology EKG: report reviewed
--- NOTE | 2020-08-13 19:35 | Progress Note ---
Assessment and Plan - Patient Problems (1) Atrial fibrillation with rapid ventricular response Current Visit: Yes Status: Acute Plan to address problem: Cardiology team consulted, IV rate control therapy, continue medical management, CHADS 2Vasc Score:3. Pt is high fall risk. Will continue therapy with aspirin. Continue rate control. (2) Coronavirus infection Current Visit: Yes Status: Acute Plan to address problem: Coronavirus protocol: Contact precaution, isolation precautions, IV steroid therapy, IV antibiotic therapy, supportive care. Infectious disease service consulted. Continue medical management. (3) Vascular dementia Current Visit: Yes Status: Acute Qualifiers: Dementia behavioral disturbance: without behavioral disturbance Qualified Code(s): F01.50 - Vascular dementia without behavioral disturbance Plan to address problem: Verbal prompting, verbal redirection, benzodiazepine therapy as clinically indicated. (4) Cerebral atherosclerosis Current Visit: Yes Status: Acute Plan to address problem: Risk factor reduction, supportive care, antiplatelet therapy as clinically indicated. (5) Acute respiratory failure with hypoxia Current Visit: Yes Status: Acute Plan to address problem: Supplemental oxygen, pulse oximetry, nebulizer therapy, proposition while in bed, supportive care. (6) CHF exacerbation Current Visit: Yes Status: Acute Qualifiers: Heart failure type: combined systolic and diastolic Qualified Code(s): I50.43 - Acute on chronic combined systolic (congestive) and diastolic (congestive) heart failure Plan to address problem: Cardiology team consulted, continue conservative medical management as per cardiology team recommendations. (7) Hyperlipidemia Current Visit: Yes Status: Acute Plan to address problem: Low-cholesterol diet, statin therapy as clinically indicated. (8) Debility Current Visit: Yes Status: Acute Plan to address problem: Physical therapy consulted, case management consulted for assistance with d ischarge planning to [facility]pc facility versus assisted living facility. (9) DVT prophylaxis Current Visit: Yes Status: Acute Plan to address problem: SCD to bilateral lower extremities while in bed, prophylactic anticoagulation (10) Advance care planning Current Visit: Yes Status: Acute Plan to address problem: Disease education conducted, care plan discussed, prognosis discussed, patient is full code, +30 minutes. History Interval history: 75 YO Male HD #9 with Coronavirus Infection, Diastolic CHF, Vascular Dementia, Cerebral Atherosclerosis, Atrial Fib with RVR. Patient resting comfortably in bed. Patient has diminished cognition. No reported nursing events. Patient denies pain. Pt convalesced well overnight. Physical therapy consulted. Dis charge planning, case management consulted for assistance with [facility] facility placement versus assisted living facility placement. Hospitalist Physical - Constitutional Vitals: Temp Pulse Resp BP Pulse Ox 97.0 F L 65 18 138/68 98 08/13/20 16:00 08/13/20 18:00 08/13/20 18:00 08/13/20 18:00 08/13/20 18:00 General appearance: Present: mild distress, well-nourished - EENT Eyes: Present: PERRL ENT: hearing intact - Neck Neck: Present: supple - Respiratory Respiratory effort: normal Respiratory: bilateral: diminished - Cardiovascular Rhythm: regular Heart Sounds: Present: S1 & S2 - Extremities Extremities: no ischemia Peripheral Pulses: within normal limits - Abdominal General gastrointestinal: soft, non-tender, non-distended - Integumentary Integumentary: Present: clear, dry - Psychiatric Psychiatric: cooperative - Neurologic Neurologic: CNII-XII intact HEART Score - HEART Score Troponin: Troponin T 0.127 ng/mL (0.00-0.029) H* 08/05/20 16:25 Results - Labs CBC & Chem 7: 08/10/20 12:07 08/10/20 12:07 Labs: Laboratory Last Values WBC 13.9 K/mm3 (4.5-11.0) H 08/10/20 12:07 RBC 2.90 M/mm3 (3.65-5.03) L 08/10/20 12:07 Hgb 7.9 gm/dl (11.8-15.2) L 08/10/20 12:07 Hct 23.4 % (35.5-45.6) L 08/10/20 12:07 MCV 81 fl (84-94) L 08/10/20 12:07 MCH 27 pg (28-32) L 08/10/20 12:07 MCHC 34 % (32-34) 08/10/20 12:07 RDW 17.6 % (13.2-15.2) H 08/10/20 12:07 Plt Count 617 K/mm3 (140-440) H 08/10/20 12:07 Add Manual Diff Complete 08/10/20 12:07 Total Counted 100 08/10/20 12:07 Seg Neutrophils % Information Technology Administrator 08/10/20 12:07 Seg Neuts % (Manual) 95.0 % (40.0-70.0) H 08/08/20 17:08 Lymphocytes % (Manual) 4.0 % (13.4-35.0) L 08/10/20 12:07 Monocytes % (Manual) 2.0 % (0.0-7.3) 08/08/20 17:08 Nucleated RBC % Not Reportable 08/10/20 12:07 Seg Neutrophils # Man 13.3 K/mm3 (1.8-7.7) H 08/10/20 12:07 Band Neutrophils # 0.0 K/mm3 08/10/20 12:07 Lymphocytes # (Manual) 0.6 K/mm3 (1.2-5.4) L 08/10/20 12:07 Abs React Lymphs (Man) 0.0 K/mm3 08/10/20 12:07 Monocytes # (Manual) 0.0 K/mm3 (0.0-0.8) 08/10/20 12:07 Eosinophils # (Manual) 0.0 K/mm3 (0.0-0.4) 08/10/20 12:07 Basophils # (Manual) 0.0 K/mm3 (0.0-0.1) 08/10/20 12:07 Metamyelocytes # 0.0 K/mm3 08/10/20 12:07 Myelocytes # 0.0 K/mm3 08/10/20 12:07 Promyelocytes # 0.0 K/mm3 08/10/20 12:07 Blast Cells # 0.0 K/mm3 08/10/20 12:07 WBC Morphology Not Reportable 08/10/20 12:07 Hypersegmented Neuts Not Reportable 08/10/20 12:07 Hyposegmented Neuts Not Reportable 08/10/20 12:07 Hypogranular Neuts Not Reportable 08/10/20 12:07 Smudge Cells Not Reportable 08/10/20 12:07 Toxic Granulation Not Reportable 08/10/20 12:07 Toxic Vacuolation Not Reportable 08/10/20 12:07 Dohle Bodies Not Reportable 08/10/20 12:07 Pelger-Huet Anomaly Not Reportable 08/10/20 12:07 Cheri Rods Not Reportable 08/10/20 12:07 Platelet Estimate Consistent w auto 08/10/20 12:07 Clumped Platelets Not Reportable 08/10/20 12:07 Plt Clumps, EDTA Not Reportable 08/10/20 12:07 Large Platelets Not Reportable 08/10/20 12:07 Giant Platelets Not Reportable 08/10/20 12:07 Platelet Satelliting Not Reportable 08/10/20 12:07 Plt Morphology Comment Not Reportable 08/10/20 12:07 RBC Morphology Not Reportable 08/10/20 12:07 Dimorphic RBCs Not Reportable 08/10/20 12:07 Polychromasia Not Reportable 08/10/20 12:07 Hypochromasia Not Reportable 08/10/20 12:07 Poikilocytosis Not Reportable 08/10/20 12:07 Anisocytosis Not Reportable 08/10/20 12:07 Microcytosis Not Reportable 08/10/20 12:07 Macrocytosis Not Reportable 08/10/20 12:07 Spherocytes Not Reportable 08/10/20 12:07 Pappenheimer Bodies Not Reportable 08/10/20 12:07 Sickle Cells Not Reportable 08/10/20 12:07 Target Cells Not Reportable 08/10/20 12:07 Tear Drop Cells Not Reportable 08/10/20 12:07 Ovalocytes Not Reportable 08/10/20 12:07 Helmet Cells Not Reportable 08/10/20 12:07 Blackwell-[place] Bodies Not Reportable 08/10/20 12:07 Hull Rings Not Reportable 08/10/20 12:07 Sunflower Cells Not Reportable 08/10/20 12:07 Bite Cells Not Reportable 08/10/20 12:07 Crenated Cell Not Reportable 08/10/20 12:07 Elliptocytes Not Reportable 08/10/20 12:07 Acanthocytes (Spur) Not Reportable 08/10/20 12:07 Rouleaux Not Reportable 08/10/20 12:07 Hemoglobin C Crystals Not Reportable 08/10/20 12:07 Schistocytes Rare 08/10/20 12:07 Malaria parasites Not Reportable 08/10/20 12:07 Mc Bodies Not Reportable 08/10/20 12:07 Hem Pathologist Commnt No 08/10/20 12:07 D-Dimer 1218.20 ng/mlDDU (0-234) H 08/05/20 16:25 Sodium 138 mmol/L (137-145) 08/10/20 12:07 Potassium 2.9 mmol/L (3.6-5.0) L* D 08/10/20 12:07 Chloride 96.7 mmol/L (98-107) L 08/10/20 12:07 Carbon Dioxide 28 mmol/L (22-30) 08/10/20 12:07 Anion Gap 16 mmol/L 08/10/20 12:07 BUN 24 mg/dL (9-20) H 08/10/20 12:07 Creatinine 1.3 mg/dL (0.8-1.3) 08/10/20 12:07 Estimated GFR > 60 ml/min 08/10/20 12:07 BUN/Creatinine Ratio 18 % 08/10/20 12:07 Glucose 100 mg/dL (75-100) 08/10/20 12:07 POC Glucose 132 mg/dL (70-105) H 08/08/20 17:08 Hemoglobin A1c < 4.0 % (4-6) L 08/06/20 06:55 Lactic Acid 0.50 mmol/L (0.7-2.0) L 08/05/20 19:51 Calcium 9.2 mg/dL (8.4-10.2) 08/10/20 12:07 Magnesium 1.80 mg/dL (1.7-2.3) 08/09/20 14:46 Iron 21 ug/dL (49-181) L 08/05/20 23:23 TIBC 232 mcg/dL (250-450) L 08/05/20 23:23 % Saturation 9.05 % 08/05/20 23:23 Transferrin 189 mg/dl (180-329) 08/05/20 23:23 Ferritin 817.3 ng/mL (30.0-300.0) H 08/05/20 16:25 Total Bilirubin 0.30 mg/dL (0.1-1.2) 08/05/20 16:25 AST 12 units/L (5-40) 08/05/20 16:25 ALT < 5 units/L (7-56) L 08/05/20 16:25 Alkaline Phosphatase 54 units/L (35-129) 08/05/20 16:25 Lactate Dehydrogenase 225 units/L (91-180) H 08/05/20 16:25 Troponin T 0.127 ng/mL (0.00-0.029) H* 08/05/20 16:25 C-Reactive Protein 8.30 mg/dL (0.00-1.30) H 08/05/20 16:25 NT-Pro-B Natriuret Pep > 23724 pg/mL (0-900) H 08/05/20 16:25 Total Protein 6.9 g/dL (6.3-8.2) 08/05/20 16:25 Albumin 3.5 g/dL (3.9-5) L 08/05/20 16:25 Albumin/Globulin Ratio 1.0 % 08/05/20 16:25 Triglycerides 93 mg/dL (2-149) 08/05/20 16:25 Cholesterol 154 mg/dL (50-199) 08/05/20 16:25 LDL Cholesterol Direct 72 mg/dL (50-130) 08/05/20 16:25 HDL Cholesterol 61 mg/dL (40-59) H 08/05/20 16:25 Cholesterol/HDL Ratio 2.52 % 08/05/20 16:25 Vitamin B12 753.2 pg/mL (211-911) 08/05/20 23:23 RBC Folic Acid >1000 ng/mL (>280) 08/05/20 23:23 Procalcitonin 0.31 ng/mL (<0.15) 08/05/20 16:25 TSH 0.369 mlU/mL (0.270-4.200) 08/09/20 14:46 Coronavirus (PCR) Positive (Negative) A 08/05/20 10:32 San/IV: Voiding Method Condom Catheter Active Medications - Current Medications Current Medications: Generic Name Dose Route Start Last Admin Trade Name Freq PRN Reason Stop Dose Admin Acetaminophen 650 mg 08/05/20 22:08 Acetaminophen 325 Mg Tab PO Q4H PRN Pain MILD(1-3)/Fever >100.5/REDD Amiodarone HCl 200 mg 08/10/20 12:00 08/13/20 09:32 Amiodarone 200 Mg Tab PO 200 mg QDAY DENISE Administration Amlodipine Besylate 10 mg 08/06/20 10:00 08/13/20 09:31 Amlodipine 10 Mg Tab PO 10 mg QAM DENISE Administration Aspirin 81 mg 08/06/20 10:00 08/13/20 09:32 Aspirin Ec 81 Mg Tab PO 81 mg QDAY DENISE Administration Atorvastatin Calcium 80 mg 08/06/20 22:00 08/12/20 22:07 Atorvastatin 40 Mg Tab PO 80 mg QHS DENISE Administration Clopidogrel Bisulfate 75 mg 08/06/20 10:00 08/13/20 09:32 Clopidogrel 75 Mg Tab PO 75 mg QDAY DENISE Administration Dexamethasone 8 mg 08/09/20 10:00 08/13/20 09:32 Dexamethasone 4 Mg Tab PO 08/14/20 12:00 8 mg DAILY DENISE Administration Enoxaparin Sodium 40 mg 08/06/20 22:00 08/12/20 22:09 Enoxaparin 40 Mg/0.4 Ml Inj SUB-Q 40 mg QDAY@2200 DENISE Administration Protocol Famotidine 20 mg 08/05/20 22:15 08/13/20 09:32 Famotidine 20 Mg Tab PO 20 mg BID DENISE Administration Fenofibrate 48 mg 08/06/20 10:00 08/13/20 09:31 Fenofibrate 48 Mg Tab PO 48 mg QDAY DENISE Administration Furosemide 40 mg 08/06/20 06:00 08/13/20 18:15 Furosemide 40 Mg/4 Ml Inj IV 40 mg 0600,1800 DENISE Administration Hydralazine HCl 10 mg 08/08/20 14:44 08/10/20 11:14 Hydralazine 20 Mg/1 Ml Inj IV 10 mg Q4HR PRN Administration Hypertension Hydromorphone HCl 0.5 mg 08/05/20 22:25 08/08/20 22:40 Hydromorphone 1 Mg/1 Ml Inj IV 0.5 mg Q3H PRN Administration Pain , Severe (7-10) Isosorbide Mononitrate 30 mg 08/06/20 10:00 08/13/20 09:32 Isosorbide Mononitrate Er 30 Mg Tab PO 30 mg DAILY DENISE Administration Losartan Potassium 100 mg 08/06/20 10:00 08/13/20 09:31 Losartan 50 Mg Tab PO 100 mg QDAY DENISE Administration Metoprolol Tartrate 25 mg 08/11/20 22:00 08/13/20 09:32 Metoprolol Tartrate 25 Mg Tab PO 25 mg BID DENISE Administration Ondansetron HCl 4 mg 08/05/20 22:25 08/10/20 08:07 Ondansetron 4 Mg/2 Ml Inj IV 4 mg Q8H PRN Administration Nausea And Vomiting Oxycodone/Acetaminophen 1 tab 08/05/20 22:25 08/12/20 10:34 Oxycodone /Acetaminophen 5-325mg Tab PO 1 tab Q6H PRN Administration Pain, Moderate (4-6) Sodium Chloride 10 ml 08/06/20 10:00 08/13/20 09:33 Sodium Chloride 0.9% 10 Ml Flush Syringe IV 10 ml BID DENISE Administration Sodium Chloride 10 ml 08/05/20 22:25 Sodium Chloride 0.9% 10 Ml Flush Syringe IV PRN PRN LINE FLUSH Tramadol HCl 50 mg 08/05/20 22:08 08/13/20 17:25 Tramadol 50 Mg Tab PO 50 mg Q12H PRN Administration Pain, Moderate (4-6) Nutrition/Malnutrition Assess - Dietary Evaluation Nutrition/Malnutrition Findings: Nutrition Notes Start: 08/06/20 12:34 Freq: Status: Active Protocol: Document 08/13/20 12:42 CW (Rec: 08/13/20 12:52 CW [id number]) Nutrition Notes Initial or Follow up Reassessment Current Diagnosis Coronary Artery Disease, Hypertension,Heart Failure, Respiratory Failure, Hyperlipidemia Other Pertinent Diagnosis SIRS, COVID, pneu, dementia Current Diet Cardiac Labs/Tests K 2.9 BUN 24 Pertinent Medications Lasix Decadron Height 6 ft Weight 67.54 kg [place] Body Weight (kg) 80.90 BMI 20.2 Weight Status Underweight Subjective/Other Information F/U for intakes. Pt did not answer phone x2 for preference updates. However, per RN pt eats well with foods he likes. Some preferences noted from RN. RN reports that pt is drinking ONS. Percent of energy/protein needs met: 91%/86% Burn Absent Trauma Absent GI Symptoms Nausea Cultural/Ethnic/Scientologist Belief dislikes grits Current % PO Negligible Minimum of two criteria No physical signs of malnutrition #2 Nutrition Diagnosis Inadequate oral intake Diagnosis Progress(for reassessment Continues documentation) Is patient on ventilator? No Is Patient Ambulatory and/or Out of Bed No REE-([facility]-confined to bed) 5326.290 Calculation Used for Recommendations [facility] Additional Notes Protein: 68g - 84 (1 - 1.2g/kg ) Fluid: 1ml/kcal or per MD Nutrition Intervention Change Diet Order: Continue Add Supplement/Snack (indicate name/kcal Ensure Clear BID /protein ) Provides kCal: 480 Provides Protein (gm) 16 Goal #1 Meet at least 75% of protein and energy needs via PO Goal #2 weight gain/ maintanence Anticipated Discharge Needs: Cardiac with ONS PRN Follow-Up By: 08/16/20 Additional Comments F/U for stable intakes
[2020-08-13] MEDS: ENOXAPARIN 40 MG/0.4 ML INJ SUB-Q SCH (21:52)
[2020-08-14] MEDS: hydrALAZINE 20 MG/1 ML INJ IV PRN (03:24)
[2020-08-14] MEDS: FUROSEMIDE 40 MG/4 ML INJ IV SCH ×2 (06:08→17:31)
[2020-08-14] MEDS: traMADol 50 MG TAB PO PRN (06:08)
[2020-08-14] MEDS: AMIODARONE 200 MG TAB PO SCH (09:38)
[2020-08-14] MEDS: amLODIPine 10 MG TAB PO SCH (09:38)
[2020-08-14] MEDS: METOPROLOL TARTRATE 25 MG TAB PO SCH ×2 (09:39→22:38)
[2020-08-14] MEDS: DEXAMETHASONE 4 MG TAB PO SCH (09:39)
[2020-08-14] MEDS: LOSARTAN 50 MG TAB PO SCH (09:39)
[2020-08-14] MEDS: ASPIRIN EC 81 MG TAB PO SCH (09:39)
[2020-08-14] MEDS: FENOFIBRATE 48 MG TAB PO SCH (09:40)
[2020-08-14] MEDS: FAMOTIDINE 20 MG TAB PO SCH ×2 (09:40→22:37)
[2020-08-14] MEDS: CLOPIDOGREL 75 MG TAB PO SCH (09:40)
--- NOTE | 2020-08-14 10:26 | Progress Note ---
Assessment and Plan Assessment and plan: Atrial fibrillation with rapid ventricular response Currently rate controlled , continue current beta-blockers cardiology team consulted, IV rate control therapy, continue medical management, CHADS 2Vasc Score:3. Pt is high fall risk. Will continue therapy with aspirin. Continue rate control. Coronavirus infection: Coronavirus protocol: Contact and droplet precautions, IV steroid therapy, IV antibiotic therapy, supportive care. Infectious disease service consulted. Continue medical management. Vascular dementia Verbal prompting, verbal redirection, supportive care Cerebral atherosclerosis Risk factor reduction, supportive care, antiplatelet therapy as clinically indicated. Acute respiratory failure with hypoxia Supplemental oxygen, pulse oximetry, nebulizer therapy, Prone positioning as tolerated CHF exacerbation Cardiology following, medications optimized, continue supportive care Hyperlipidemia Low-cholesterol diet, statin therapy as clinically indicated. General debility Physical therapy consulted, case management consulted for assistance with discharge planning to half-way facility versus assisted living facility. DVT prophylaxis SCD to bilateral lower extremities while in bed, prophylactic anticoagulation Advance care planning Full CODE STATUS, DC planning per case management Discharge planning; case management, SNF placement Closely monitor the patient and adjust the management as needed Plan of care reviewed with the patient and his nurse History Interval history: I have seen and examined the patient at the bedside this morning in [facility] Patient's chart, medications, tests and reports and consultants recommendations noted and appreciated Patient has no new complaints, nurse has no new concerns Vital signs noted Hospitalist Physical - Constitutional Vitals: Temp Pulse Resp BP Pulse Ox 97.9 F 65 17 181/91 98 08/14/20 08:00 08/14/20 09:39 08/14/20 09:31 08/14/20 09:39 08/14/20 09:31 General appearance: Present: mild distress, well-nourished - EENT Eyes: Present: PERRL, EOM intact - Neck Neck: Present: supple, normal ROM - Respiratory Respiratory effort: normal Respiratory: bilateral: wheezing, negative: diminished, rales, rhonchi - Cardiovascular Rhythm: regular Heart Sounds: Present: S1 & S2 - Extremities Extremities: no ischemia - Abdominal General gastrointestinal: soft, non-tender, normal bowel sounds - Integumentary Integumentary: Present: clear, warm - Psychiatric Psychiatric: appropriate mood/affect, cooperative - Neurologic Neurologic: moves all extremities HEART Score - HEART Score Troponin: Troponin T 0.127 ng/mL (0.00-0.029) H* 08/05/20 16:25 Results - Labs CBC & Chem 7: 08/10/20 12:07 08/10/20 12:07 Labs: Laboratory Last Values WBC 13.9 K/mm3 (4.5-11.0) H 08/10/20 12:07 RBC 2.90 M/mm3 (3.65-5.03) L 08/10/20 12:07 Hgb 7.9 gm/dl (11.8-15.2) L 08/10/20 12:07 Hct 23.4 % (35.5-45.6) L 08/10/20 12:07 MCV 81 fl (84-94) L 08/10/20 12:07 MCH 27 pg (28-32) L 08/10/20 12:07 MCHC 34 % (32-34) 08/10/20 12:07 RDW 17.6 % (13.2-15.2) H 08/10/20 12:07 Plt Count 617 K/mm3 (140-440) H 08/10/20 12:07 Add Manual Diff Complete 08/10/20 12:07 Total Counted 100 08/10/20 12:07 Seg Neutrophils % Respiratory Technician 08/10/20 12:07 Seg Neuts % (Manual) 95.0 % (40.0-70.0) H 08/08/20 17:08 Lymphocytes % (Manual) 4.0 % (13.4-35.0) L 08/10/20 12:07 Monocytes % (Manual) 2.0 % (0.0-7.3) 08/08/20 17:08 Nucleated RBC % Not Reportable 08/10/20 12:07 Seg Neutrophils # Man 13.3 K/mm3 (1.8-7.7) H 08/10/20 12:07 Band Neutrophils # 0.0 K/mm3 08/10/20 12:07 Lymphocytes # (Manual) 0.6 K/mm3 (1.2-5.4) L 08/10/20 12:07 Abs React Lymphs (Man) 0.0 K/mm3 08/10/20 12:07 Monocytes # (Manual) 0.0 K/mm3 (0.0-0.8) 08/10/20 12:07 Eosinophils # (Manual) 0.0 K/mm3 (0.0-0.4) 08/10/20 12:07 Basophils # (Manual) 0.0 K/mm3 (0.0-0.1) 08/10/20 12:07 Metamyelocytes # 0.0 K/mm3 08/10/20 12:07 Myelocytes # 0.0 K/mm3 08/10/20 12:07 Promyelocytes # 0.0 K/mm3 08/10/20 12:07 Blast Cells # 0.0 K/mm3 08/10/20 12:07 WBC Morphology Not Reportable 08/10/20 12:07 Hypersegmented Neuts Not Reportable 08/10/20 12:07 Hyposegmented Neuts Not Reportable 08/10/20 12:07 Hypogranular Neuts Not Reportable 08/10/20 12:07 Smudge Cells Not Reportable 08/10/20 12:07 Toxic Granulation Not Reportable 08/10/20 12:07 Toxic Vacuolation Not Reportable 08/10/20 12:07 Dohle Bodies Not Reportable 08/10/20 12:07 Pelger-Huet Anomaly Not Reportable 08/10/20 12:07 Cheri Rods Not Reportable 08/10/20 12:07 Platelet Estimate Consistent w auto 08/10/20 12:07 Clumped Platelets Not Reportable 08/10/20 12:07 Plt Clumps, EDTA Not Reportable 08/10/20 12:07 Large Platelets Not Reportable 08/10/20 12:07 Giant Platelets Not Reportable 08/10/20 12:07 Platelet Satelliting Not Reportable 08/10/20 12:07 Plt Morphology Comment Not Reportable 08/10/20 12:07 RBC Morphology Not Reportable 08/10/20 12:07 Dimorphic RBCs Not Reportable 08/10/20 12:07 Polychromasia Not Reportable 08/10/20 12:07 Hypochromasia Not Reportable 08/10/20 12:07 Poikilocytosis Not Reportable 08/10/20 12:07 Anisocytosis Not Reportable 08/10/20 12:07 Microcytosis Not Reportable 08/10/20 12:07 Macrocytosis Not Reportable 08/10/20 12:07 Spherocytes Not Reportable 08/10/20 12:07 Pappenheimer Bodies Not Reportable 08/10/20 12:07 Sickle Cells Not Reportable 08/10/20 12:07 Target Cells Not Reportable 08/10/20 12:07 Tear Drop Cells Not Reportable 08/10/20 12:07 Ovalocytes Not Reportable 08/10/20 12:07 Helmet Cells Not Reportable 08/10/20 12:07 [place] Bodies Not Reportable 08/10/20 12:07 [place] Rings Not Reportable 08/10/20 12:07 [place] Cells Not Reportable 08/10/20 12:07 Bite Cells Not Reportable 08/10/20 12:07 Crenated Cell Not Reportable 08/10/20 12:07 Elliptocytes Not Reportable 08/10/20 12:07 Acanthocytes (Spur) Not Reportable 08/10/20 12:07 Rouleaux Not Reportable 08/10/20 12:07 Hemoglobin C Crystals Not Reportable 08/10/20 12:07 Schistocytes Rare 08/10/20 12:07 Malaria parasites Not Reportable 08/10/20 12:07 Mc Bodies Not Reportable 08/10/20 12:07 Hem Pathologist Commnt No 08/10/20 12:07 D-Dimer 1218.20 ng/mlDDU (0-234) H 08/05/20 16:25 Sodium 138 mmol/L (137-145) 08/10/20 12:07 Potassium 2.9 mmol/L (3.6-5.0) L* D 08/10/20 12:07 Chloride 96.7 mmol/L (98-107) L 08/10/20 12:07 Carbon Dioxide 28 mmol/L (22-30) 08/10/20 12:07 Anion Gap 16 mmol/L 08/10/20 12:07 BUN 24 mg/dL (9-20) H 08/10/20 12:07 Creatinine 1.3 mg/dL (0.8-1.3) 08/10/20 12:07 Estimated GFR > 60 ml/min 08/10/20 12:07 BUN/Creatinine Ratio 18 % 08/10/20 12:07 Glucose 100 mg/dL (75-100) 08/10/20 12:07 POC Glucose 132 mg/dL (70-105) H 08/08/20 17:08 Hemoglobin A1c < 4.0 % (4-6) L 08/06/20 06:55 Lactic Acid 0.50 mmol/L (0.7-2.0) L 08/05/20 19:51 Calcium 9.2 mg/dL (8.4-10.2) 08/10/20 12:07 Magnesium 1.80 mg/dL (1.7-2.3) 08/09/20 14:46 Iron 21 ug/dL (49-181) L 08/05/20 23:23 TIBC 232 mcg/dL (250-450) L 08/05/20 23:23 % Saturation 9.05 % 08/05/20 23:23 Transferrin 189 mg/dl (180-329) 08/05/20 23:23 Ferritin 817.3 ng/mL (30.0-300.0) H 08/05/20 16:25 Total Bilirubin 0.30 mg/dL (0.1-1.2) 08/05/20 16:25 AST 12 units/L (5-40) 08/05/20 16:25 ALT < 5 units/L (7-56) L 08/05/20 16:25 Alkaline Phosphatase 54 units/L (35-129) 08/05/20 16:25 Lactate Dehydrogenase 225 units/L (91-180) H 08/05/20 16:25 Troponin T 0.127 ng/mL (0.00-0.029) H* 08/05/20 16:25 C-Reactive Protein 8.30 mg/dL (0.00-1.30) H 08/05/20 16:25 NT-Pro-B Natriuret Pep > 35966 pg/mL (0-900) H 08/05/20 16:25 Total Protein 6.9 g/dL (6.3-8.2) 08/05/20 16:25 Albumin 3.5 g/dL (3.9-5) L 08/05/20 16:25 Albumin/Globulin Ratio 1.0 % 08/05/20 16:25 Triglycerides 93 mg/dL (2-149) 08/05/20 16:25 Cholesterol 154 mg/dL (50-199) 08/05/20 16:25 LDL Cholesterol Direct 72 mg/dL (50-130) 08/05/20 16:25 HDL Cholesterol 61 mg/dL (40-59) H 08/05/20 16:25 Cholesterol/HDL Ratio 2.52 % 08/05/20 16:25 Vitamin B12 753.2 pg/mL (211-911) 08/05/20 23:23 RBC Folic Acid >1000 ng/mL (>280) 08/05/20 23:23 Procalcitonin 0.31 ng/mL (<0.15) 08/05/20 16:25 TSH 0.369 mlU/mL (0.270-4.200) 08/09/20 14:46 Coronavirus (PCR) Positive (Negative) A 08/05/20 10:32 San/IV: Voiding Method Condom Catheter Active Medications - Current Medications Current Medications: Generic Name Dose Route Start Last Admin Trade Name Freq PRN Reason Stop Dose Admin Acetaminophen 650 mg 08/05/20 22:08 Acetaminophen 325 Mg Tab PO Q4H PRN Pain MILD(1-3)/Fever >100.5/REDD Amiodarone HCl 200 mg 08/10/20 12:00 08/14/20 09:38 Amiodarone 200 Mg Tab PO 200 mg QDAY DENISE Administration Amlodipine Besylate 10 mg 08/06/20 10:00 08/14/20 09:38 Amlodipine 10 Mg Tab PO 10 mg QAM DENISE Administration Aspirin 81 mg 08/06/20 10:00 08/14/20 09:39 Aspirin Ec 81 Mg Tab PO 81 mg QDAY DENISE Administration Atorvastatin Calcium 80 mg 08/06/20 22:00 08/13/20 21:52 Atorvastatin 40 Mg Tab PO 80 mg QHS DENISE Administration Clopidogrel Bisulfate 75 mg 08/06/20 10:00 08/14/20 09:40 Clopidogrel 75 Mg Tab PO 75 mg QDAY DENISE Administration Dexamethasone 8 mg 08/09/20 10:00 08/14/20 09:39 Dexamethasone 4 Mg Tab PO 08/14/20 12:00 8 mg DAILY DENISE Administration Enoxaparin Sodium 40 mg 08/06/20 22:00 08/13/20 21:52 Enoxaparin 40 Mg/0.4 Ml Inj SUB-Q 40 mg QDAY@2200 DENISE Administration Protocol Famotidine 20 mg 08/05/20 22:15 08/14/20 09:40 Famotidine 20 Mg Tab PO 20 mg BID DENISE Administration Fenofibrate 48 mg 08/06/20 10:00 08/14/20 09:40 Fenofibrate 48 Mg Tab PO 48 mg QDAY DENISE Administration Furosemide 40 mg 08/06/20 06:00 08/14/20 06:08 Furosemide 40 Mg/4 Ml Inj IV 40 mg 0600,1800 DENISE Administration Hydralazine HCl 10 mg 08/08/20 14:44 08/14/20 03:24 Hydralazine 20 Mg/1 Ml Inj IV 10 mg Q4HR PRN Administration Hypertension Hydromorphone HCl 0.5 mg 08/05/20 22:25 08/08/20 22:40 Hydromorphone 1 Mg/1 Ml Inj IV 0.5 mg Q3H PRN Administration Pain , Severe (7-10) Isosorbide Mononitrate 30 mg 08/06/20 10:00 08/14/20 09:39 Isosorbide Mononitrate Er 30 Mg Tab PO 30 mg DAILY DENISE Administration Losartan Potassium 100 mg 08/06/20 10:00 08/14/20 09:39 Losartan 50 Mg Tab PO 100 mg QDAY DENISE Administration Metoprolol Tartrate 25 mg 08/11/20 22:00 08/14/20 09:39 Metoprolol Tartrate 25 Mg Tab PO 25 mg BID DENISE Administration Ondansetron HCl 4 mg 08/05/20 22:25 08/10/20 08:07 Ondansetron 4 Mg/2 Ml Inj IV 4 mg Q8H PRN Administration Nausea And Vomiting Oxycodone/Acetaminophen 1 tab 08/05/20 22:25 08/12/20 10:34 Oxycodone /Acetaminophen 5-325mg Tab PO 1 tab Q6H PRN Administration Pain, Moderate (4-6) Sodium Chloride 10 ml 08/06/20 10:00 08/14/20 09:40 Sodium Chloride 0.9% 10 Ml Flush Syringe IV 10 ml BID DENISE Administration Sodium Chloride 10 ml 08/05/20 22:25 Sodium Chloride 0.9% 10 Ml Flush Syringe IV PRN PRN LINE FLUSH Tramadol HCl 50 mg 08/05/20 22:08 08/14/20 06:08 Tramadol 50 Mg Tab PO 50 mg Q12H PRN Administration Pain, Moderate (4-6) Nutrition/Malnutrition Assess - Dietary Evaluation Nutrition/Malnutrition Findings: Nutrition Notes Start: 08/06/20 12:34 Freq: Status: Active Protocol: Document 08/13/20 12:42 CW (Rec: 08/13/20 12:52 CW [id number]) Nutrition Notes Initial or Follow up Reassessment Current Diagnosis Coronary Artery Disease, Hypertension,Heart Failure, Respiratory Failure, Hyperlipidemia Other Pertinent Diagnosis SIRS, COVID, pneu, dementia Current Diet Cardiac Labs/Tests K 2.9 BUN 24 Pertinent Medications Lasix Decadron Height 6 ft Weight 67.54 kg [place] Body Weight (kg) 80.90 BMI 20.2 Weight Status Underweight Subjective/Other Information F/U for intakes. Pt did not answer phone x2 for preference updates. However, per RN pt eats well with foods he likes. Some preferences noted from RN. RN reports that pt is drinking ONS. Percent of energy/protein needs met: 91%/86% Burn Absent Trauma Absent GI Symptoms Nausea Cultural/Ethnic/Sikhism Belief dislikes grits Current % PO Negligible Minimum of two criteria No physical signs of malnutrition #2 Nutrition Diagnosis Inadequate oral intake Diagnosis Progress(for reassessment Continues documentation) Is patient on ventilator? No Is Patient Ambulatory and/or Out of Bed No REE-([place]-St. Jeor-confined to bed) 9232.937 Calculation Used for Recommendations [place] Jeor Additional Notes Protein: 68g - 84 (1 - 1.2g/kg ) Fluid: 1ml/kcal or per Nutrition Intervention Change Diet Order: Continue Add Supplement/Snack (indicate name/kcal Ensure Clear BID /protein ) Provides kCal: 480 Provides Protein (gm) 16 Goal #1 Meet at least 75% of protein and energy needs via PO Goal #2 weight gain/ maintanence Anticipated Discharge Needs: Cardiac with ONS PRN Follow-Up By: 08/16/20 Additional Comments F/U for stable intakes
[2020-08-14] MEDS: oxyCODONE /ACETAMINOPHEN 5-325MG TAB PO PRN (12:52)
--- NOTE | 2020-08-14 13:29 | Progress Note ---
Assessment and Plan Atrial fibrillation, new onset pt has reverted to sinus rhythm normal TSH at 0.369 Nausea with vomiting Acute hypoxic respiratory failure COVID-19 infection Anemia Echocardiogram during this admission has reported well-preserved left ventricular systolic ejection fraction of 55-60%. 02/2018 Echocardiogram reported normal left ventricular systolic function, ejection fraction 55-60%. There was mild aortic stenosis. 07/2017 MPI -normal perfusion scan. Continue oral amiodarone and metoprolol for atrial fibrillation suppression. He is considered not a candidate for oral anticoagulation at this time due to a persistent severe anemia. Subjective Date of service: 08/14/20 Principal diagnosis: Covid pneumonia, acute respiratory failure with hypoxia Interval history: Patient is resting in bed comfortably. Currently, he is sinus rhythm on telemetry. Objective Vital Signs Temp Pulse Pulse Resp BP Pulse Ox 08/14/20 12:31 63 18 132/79 99 08/14/20 12:01 73 23 132/79 98 08/14/20 12:00 98.4 F 69 08/14/20 11:31 71 16 179/88 98 08/14/20 11:00 71 15 182/89 98 08/14/20 10:31 16 182/89 99 08/14/20 10:00 64 16 182/89 99 08/14/20 09:39 65 181/91 08/14/20 09:38 65 181/91 08/14/20 09:31 109 H 17 181/91 98 08/14/20 09:00 66 17 181/91 98 08/14/20 08:31 70 16 183/92 99 08/14/20 08:00 97.9 F 68 16 183/92 97 08/14/20 07:31 68 16 163/81 98 08/14/20 07:00 70 15 188/93 98 08/14/20 06:31 67 15 163/81 98 08/14/20 06:08 15 08/14/20 06:00 73 15 179/92 08/14/20 05:31 73 15 173/90 100 08/14/20 05:00 68 15 173/90 98 08/14/20 04:31 67 15 167/95 100 08/14/20 04:00 69 69 15 167/95 97 08/14/20 03:52 98.3 F 08/14/20 03:32 64 08/14/20 03:24 65 173/91 08/14/20 03:01 66 14 173/91 98 08/14/20 02:01 64 14 169/91 96 08/14/20 01:00 61 14 144/76 98 08/14/20 00:08 66 08/14/20 00:00 64 64 16 149/76 97 08/13/20 23:57 98.0 F 08/13/20 23:00 66 16 149/83 97 08/13/20 22:00 67 15 149/82 98 08/13/20 21:53 65 144/79 08/13/20 21:51 65 16 144/79 08/13/20 21:00 68 16 144/79 100 08/13/20 20:00 97.8 F 66 66 15 142/80 100 08/13/20 19:20 64 08/13/20 19:00 65 16 147/78 100 08/13/20 18:00 65 18 138/68 98 08/13/20 17:01 65 17 128/81 100 08/13/20 16:00 97.0 F L 66 61 17 143/73 100 08/13/20 15:00 66 15 138/70 99 08/13/20 14:01 64 15 133/70 100 - Physical Examination Narrative exam: Deferred due to isolation protocol. General: No Apparent Distress Cardiac: Positive: Reg Rate and Rhythm
[2020-08-14 16:03] LABS: Hematocrit 26.5 % (35.5-45.6); Hemoglobin 8.7 gm/dl (11.8-15.2); Mean Corpuscular HGB Conc 33 % (32-34); Mean Corpuscular Volume 82 fl (84-94); Platelet Count 496 K/mm3 (140-440); Red Blood Count 3.22 M/mm3 (3.65-5.03); Red Cell Distribution Width 18.3 % (13.2-15.2)
[2020-08-14 16:31] LABS: Alanine Aminotransferase 6 units/L (7-56); Albumin 3.7 g/dL (3.9-5); BUN/Creatinine Ratio 28; Blood Urea Nitrogen 39 mg/dL (9-20); Calcium 9.2 mg/dL (8.4-10.2); Hemolysis Index 2
[2020-08-14 21:30] LABS: Band Neutrophils # (Manual) 0.2 K/mm3; Total Cells Counted 100
[2020-08-14 21:31] LABS: Helmet Cells Rare; Large Platelets Rare; Ovalocytes Rare; Platelet Estimate Consistent w Auto
[2020-08-14] MEDS: ENOXAPARIN 40 MG/0.4 ML INJ SUB-Q SCH (22:37)
[2020-08-15] MEDS: FUROSEMIDE 40 MG/4 ML INJ IV SCH ×2 (05:54→17:28)
--- NOTE | 2020-08-15 08:57 | Progress Note ---
Assessment and Plan Atrial fibrillation, paroxysmal pt has reverted to sinus rhythm normal TSH at 0.369 Nausea with vomiting Acute hypoxic respiratory failure COVID-19 infection Anemia Echocardiogram during this admission has reported well-preserved left ventricular systolic ejection fraction of 55-60%. 02/2018 Echocardiogram reported normal left ventricular systolic function, ejection fraction 55-60%. There was mild aortic stenosis. 07/2017 MPI -normal perfusion scan. Continue oral amiodarone and metoprolol for atrial fibrillation suppression. He is considered not a candidate for oral anticoagulation due to a persistent severe anemia. Subjective Date of service: 08/15/20 Principal diagnosis: Covid pneumonia, acute respiratory failure with hypoxia Interval history: Patient is resting in bed comfortably. Currently, he is stable sinus rhythm on telemetry. Objective Vital Signs Temp Pulse Pulse Resp Resp BP BP 08/15/20 05:51 60 17 142/78 08/15/20 04:20 98.5 F 61 20 190/96 08/15/20 04:00 59 L 08/15/20 00:00 60 61 08/14/20 22:38 60 129/67 08/14/20 22:00 17 08/14/20 21:56 97.9 F 60 18 129/67 08/14/20 20:30 60 15 119/65 08/14/20 20:00 60 60 14 119/65 08/14/20 19:50 98.2 F 08/14/20 19:30 60 14 126/73 08/14/20 19:00 59 L 13 121/65 08/14/20 18:30 60 19 126/73 08/14/20 18:00 64 18 126/73 08/14/20 17:30 64 17 125/75 08/14/20 17:00 57 L 12 125/75 08/14/20 16:30 56 L 11 L 123/72 08/14/20 16:00 97.9 F 60 16 123/72 08/14/20 15:31 58 L 17 116/68 08/14/20 15:00 61 16 116/68 08/14/20 14:31 59 L 14 164/84 08/14/20 14:00 60 16 164/84 08/14/20 13:31 61 16 132/79 08/14/20 13:00 62 18 160/81 08/14/20 12:31 63 18 132/79 08/14/20 12:01 73 23 132/79 08/14/20 12:00 98.4 F 69 08/14/20 11:31 71 16 179/88 08/14/20 11:00 71 15 182/89 08/14/20 10:31 16 182/89 08/14/20 10:00 64 16 182/89 08/14/20 09:39 65 181/91 08/14/20 09:38 65 181/91 08/14/20 09:31 109 H 17 181/91 08/14/20 09:00 66 17 181/ Pulse Ox 08/15/20 05:51 98 08/15/20 04:20 97 08/15/20 04:00 08/15/20 00:00 99 08/14/20 22:38 08/14/20 22:00 08/14/20 21:56 98 08/14/20 20:30 99 08/14/20 20:00 99 08/14/20 19:50 08/14/20 19:30 100 08/14/20 19:00 99 08/14/20 18:30 99 08/14/20 18:00 99 08/14/20 17:30 99 08/14/20 17:00 98 08/14/20 16:30 99 08/14/20 16:00 98 08/14/20 15:31 99 08/14/20 15:00 98 08/14/20 14:31 98 08/14/20 14:00 98 08/14/20 13:31 99 08/14/20 13:00 98 08/14/20 12:31 99 08/14/20 12:01 98 08/14/20 12:00 08/14/20 11:31 98 08/14/20 11:00 98 08/14/20 10:31 99 08/14/20 10:00 99 08/14/20 09:39 08/14/20 09:38 08/14/20 09:31 98 08/14/20 09:00 98 - Physical Examination Narrative exam: Deferred due to isolation protocol. General: No Apparent Distress Cardiac: Positive: Reg Rate and Rhythm - Labs and Meds Cardiac Enzymes 08/14/20 Range/Units 15:18 AST 11 (5-40) units/L CBC 08/14/20 Range/Units 15:18 WBC 15.0 H (4.5-11.0) K/mm3 RBC 3.22 L (3.65-5.03) M/mm3 Hgb 8.7 L (11.8-15.2) gm/dl Hct 26.5 L (35.5-45.6) % Plt Count 496 H (140-440) K/mm3 Comprehensive Metabolic Panel 08/14/20 Range/Units 15:18 Sodium 139 (137-145) mmol/L Potassium 3.9 D (3.6-5.0) mmol/L Chloride 98.5 (98-107) mmol/L Carbon Dioxide 28 (22-30) mmol/L BUN 39 H (9-20) mg/dL Creatinine 1.4 H (0.8-1.3) mg/dL Glucose 106 H (75-100) mg/dL Calcium 9.2 (8.4-10.2) mg/dL AST 11 (5-40) units/L ALT 6 L (7-56) units/L Alkaline Phosphatase 40 (35-129) units/L Total Protein 5.8 L (6.3-8.2) g/dL Albumin 3.7 L (3.9-5) g/dL
[2020-08-15] MEDS: AMIODARONE 200 MG TAB PO SCH (09:41)
[2020-08-15] MEDS: CLOPIDOGREL 75 MG TAB PO SCH (09:41)
[2020-08-15] MEDS: FAMOTIDINE 20 MG TAB PO SCH ×2 (09:41→22:30)
[2020-08-15] MEDS: ASPIRIN EC 81 MG TAB PO SCH (09:41)
[2020-08-15] MEDS: LOSARTAN 50 MG TAB PO SCH (09:41)
[2020-08-15] MEDS: METOPROLOL TARTRATE 25 MG TAB PO SCH ×2 (09:41→22:30)
[2020-08-15] MEDS: amLODIPine 10 MG TAB PO SCH (09:41)
[2020-08-15] MEDS: FENOFIBRATE 48 MG TAB PO SCH (09:42)
--- NOTE | 2020-08-15 10:10 | Progress Note ---
Assessment and Plan Assessment and plan: Atrial fibrillation with rapid ventricular response Currently rate controlled , continue current beta-blockers cardiology team consulted, IV rate control therapy, continue medical management, CHADS 2Vasc Score:3. Pt is high fall risk. Will continue therapy with aspirin. Not a candidate for chronic anticoagulation due to recurrent falls and anemia [Hb 7.9] Coronavirus infection: Coronavirus protocol: Contact and droplet precautions, IV steroid therapy, IV antibiotic therapy, supportive care. Patient on room air oxygen, Continue medical management. Prone position as tolerated Vascular dementia Verbal prompting, verbal redirection, supportive care Cerebral atherosclerosis Risk factor reduction, supportive care, antiplatelet therapy as clinically indicated. Acute on chronic diastolic CHF EF 55 to 60% BNP >35,000 [ 08/05] cardiology following, medications optimized, Low-sodium diet, fluid restriction Hyperlipidemia Low-cholesterol diet, statin therapy as clinically indicated. General debility Physical therapy consulted, case management consulted for assistance with discharge planning to alf facility versus assisted living facility. DVT prophylaxis SCD to bilateral lower extremities while in bed, prophylactic anticoagulation Advance care planning Full CODE STATUS, Discharge planning; case management, SNF placement Closely monitor the patient and adjust the management as needed Plan of care reviewed with the patient and his nurse as well as case management 08/15/2020; patient is clinically stable for discharge,Awaiting SNF placement A. fib with rapid ventricular rate, rate controlled, not a candidate for chronic anticoagulation Continue aspirin Disposition; discharge to SNF when set up History Interval history: I have seen and examined the patient at the bedside, isolation precautions and PPE protocols strictly observed Patient's chart and medications reviewed Patient feels slightly better no new complaints Vital signs noted Hospitalist Physical - Constitutional Vitals: Temp Pulse Resp BP Pulse Ox 98.5 F 62 17 142/78 98 08/15/20 04:20 08/15/20 09:56 08/15/20 05:51 08/15/20 05:51 08/15/20 05:51 General appearance: Present: mild distress, well-nourished - EENT Eyes: Present: PERRL, EOM intact - Neck Neck: Present: supple, normal ROM - Respiratory Respiratory effort: normal Respiratory: bilateral: diminished, rales, negative: rhonchi, wheezing - Cardiovascular Rhythm: regular Heart Sounds: Present: S1 & S2 - Extremities Extremities: no ischemia, No edema - Abdominal General gastrointestinal: soft, non-tender, non-distended, normal bowel sounds - Integumentary Integumentary: Present: clear, warm - Psychiatric Psychiatric: appropriate mood/affect, cooperative - Neurologic Neurologic: CNII-XII intact, moves all extremities HEART Score - HEART Score Troponin: Troponin T 0.127 ng/mL (0.00-0.029) H* 08/05/20 16:25 Results - Labs CBC & Chem 7: 08/14/20 15:18 08/14/20 15:18 Labs: Laboratory Last Values WBC 15.0 K/mm3 (4.5-11.0) H 08/14/20 15:18 RBC 3.22 M/mm3 (3.65-5.03) L 08/14/20 15:18 Hgb 8.7 gm/dl (11.8-15.2) L 08/14/20 15:18 Hct 26.5 % (35.5-45.6) L 08/14/20 15:18 MCV 82 fl (84-94) L 08/14/20 15:18 MCH 27 pg (28-32) L 08/14/20 15:18 MCHC 33 % (32-34) 08/14/20 15:18 RDW 18.3 % (13.2-15.2) H 08/14/20 15:18 Plt Count 496 K/mm3 (140-440) H 08/14/20 15:18 Add Manual Diff Complete 08/14/20 15:18 Total Counted 100 08/14/20 15:18 Seg Neutrophils % [place]cker 08/14/20 15:18 Seg Neuts % (Manual) 95.0 % (40.0-70.0) H 08/08/20 17:08 Band Neutrophils % 1.0 % 08/14/20 15:18 Lymphocytes % (Manual) 1.0 % (13.4-35.0) L 08/14/20 15:18 Monocytes % (Manual) 3.0 % (0.0-7.3) 08/14/20 15:18 Nucleated RBC % Not Reportable 08/14/20 15:18 Seg Neutrophils # Man 14.3 K/mm3 (1.8-7.7) H 08/14/20 15:18 Band Neutrophils # 0.2 K/mm3 08/14/20 15:18 Lymphocytes # (Manual) 0.2 K/mm3 (1.2-5.4) L 08/14/20 15:18 Abs React Lymphs (Man) 0.0 K/mm3 08/14/20 15:18 Monocytes # (Manual) 0.5 K/mm3 (0.0-0.8) 08/14/20 15:18 Eosinophils # (Manual) 0.0 K/mm3 (0.0-0.4) 08/14/20 15:18 Basophils # (Manual) 0.0 K/mm3 (0.0-0.1) 08/14/20 15:18 Metamyelocytes # 0.0 K/mm3 08/14/20 15:18 Myelocytes # 0.0 K/mm3 08/14/20 15:18 Promyelocytes # 0.0 K/mm3 08/14/20 15:18 Blast Cells # 0.0 K/mm3 08/14/20 15:18 WBC Morphology Not Reportable 08/14/20 15:18 Hypersegmented Neuts Not Reportable 08/14/20 15:18 Hyposegmented Neuts Not Reportable 08/14/20 15:18 Hypogranular Neuts Not Reportable 08/14/20 15:18 Smudge Cells Not Reportable 08/14/20 15:18 Toxic Granulation Not Reportable 08/14/20 15:18 Toxic Vacuolation Not Reportable 08/14/20 15:18 Dohle Bodies Not Reportable 08/14/20 15:18 Pelger-Huet Anomaly Not Reportable 08/14/20 15:18 Cheri Rods Not Reportable 08/14/20 15:18 Platelet Estimate Consistent w auto 08/14/20 15:18 Clumped Platelets Not Reportable 08/14/20 15:18 Plt Clumps, EDTA Not Reportable 08/14/20 15:18 Large Platelets Rare 08/14/20 15:18 Giant Platelets Not Reportable 08/14/20 15:18 Platelet Satelliting Not Reportable 08/14/20 15:18 Plt Morphology Comment Not Reportable 08/14/20 15:18 RBC Morphology Not Reportable 08/14/20 15:18 Dimorphic RBCs Not Reportable 08/14/20 15:18 Polychromasia Not Reportable 08/14/20 15:18 Hypochromasia Not Reportable 08/14/20 15:18 Poikilocytosis Not Reportable 08/14/20 15:18 Anisocytosis Not Reportable 08/14/20 15:18 Microcytosis Not Reportable 08/14/20 15:18 Macrocytosis Not Reportable 08/14/20 15:18 Spherocytes Not Reportable 08/14/20 15:18 Pappenheimer Bodies Not Reportable 08/14/20 15:18 Sickle Cells Not Reportable 08/14/20 15:18 Target Cells Not Reportable 08/14/20 15:18 Tear Drop Cells Not Reportable 08/14/20 15:18 Ovalocytes Rare 08/14/20 15:18 Helmet Cells Rare 08/14/20 15:18 Black[place]-Idamay Bodies Not Reportable 08/14/20 15:18 [place] Rings Not Reportable 08/14/20 15:18 [place] Cells Not Reportable 08/14/20 15:18 Bite Cells Not Reportable 08/14/20 15:18 Crenated Cell Not Reportable 08/14/20 15:18 Elliptocytes Not Reportable 08/14/20 15:18 Acanthocytes (Spur) Not Reportable 08/14/20 15:18 Rouleaux Not Reportable 08/14/20 15:18 Hemoglobin C Crystals Not Reportable 08/14/20 15:18 Schistocytes Not Reportable 08/14/20 15:18 Malaria parasites Not Reportable 08/14/20 15:18 Mc Bodies Not Reportable 08/14/20 15:18 Hem Pathologist Commnt No 08/14/20 15:18 D-Dimer 1218.20 ng/mlDDU (0-234) H 08/05/20 16:25 Sodium 139 mmol/L (137-145) 08/14/20 15:18 Potassium 3.9 mmol/L (3.6-5.0) D 08/14/20 15:18 Chloride 98.5 mmol/L (98-107) 08/14/20 15:18 Carbon Dioxide 28 mmol/L (22-30) 08/14/20 15:18 Anion Gap 16 mmol/L 08/14/20 15:18 BUN 39 mg/dL (9-20) H 08/14/20 15:18 Creatinine 1.4 mg/dL (0.8-1.3) H 08/14/20 15:18 Estimated GFR > 60 ml/min 08/14/20 15:18 BUN/Creatinine Ratio 28 % 08/14/20 15:18 Glucose 106 mg/dL (75-100) H 08/14/20 15:18 POC Glucose 219 mg/dL (70-105) H 08/14/20 21:55 Hemoglobin A1c < 4.0 % (4-6) L 08/06/20 06:55 Lactic Acid 0.50 mmol/L (0.7-2.0) L 08/05/20 19:51 Calcium 9.2 mg/dL (8.4-10.2) 08/14/20 15:18 Magnesium 1.80 mg/dL (1.7-2.3) 08/14/20 15:18 Iron 21 ug/dL (49-181) L 08/05/20 23:23 TIBC 232 mcg/dL (250-450) L 08/05/20 23:23 % Saturation 9.05 % 08/05/20 23:23 Transferrin 189 mg/dl (180-329) 08/05/20 23:23 Ferritin 817.3 ng/mL (30.0-300.0) H 08/05/20 16:25 Total Bilirubin 0.20 mg/dL (0.1-1.2) 08/14/20 15:18 AST 11 units/L (5-40) 08/14/20 15:18 ALT 6 units/L (7-56) L 08/14/20 15:18 Alkaline Phosphatase 40 units/L (35-129) 08/14/20 15:18 Lactate Dehydrogenase 225 units/L (91-180) H 08/05/20 16:25 Troponin T 0.127 ng/mL (0.00-0.029) H* 08/05/20 16:25 C-Reactive Protein 8.30 mg/dL (0.00-1.30) H 08/05/20 16:25 NT-Pro-B Natriuret Pep > 32199 pg/mL (0-900) H 08/05/20 16:25 Total Protein 5.8 g/dL (6.3-8.2) L 08/14/20 15:18 Albumin 3.7 g/dL (3.9-5) L 08/14/20 15:18 Albumin/Globulin Ratio 1.8 % 08/14/20 15:18 Triglycerides 93 mg/dL (2-149) 08/05/20 16:25 Cholesterol 154 mg/dL (50-199) 08/05/20 16:25 LDL Cholesterol Direct 72 mg/dL (50-130) 08/05/20 16:25 HDL Cholesterol 61 mg/dL (40-59) H 08/05/20 16:25 Cholesterol/HDL Ratio 2.52 % 08/05/20 16:25 Vitamin B12 753.2 pg/mL (211-911) 08/05/20 23:23 RBC Folic Acid >1000 ng/mL (>280) 08/05/20 23:23 Procalcitonin 0.31 ng/mL (<0.15) 08/05/20 16:25 TSH 0.369 mlU/mL (0.270-4.200) 08/09/20 14:46 Coronavirus (PCR) Positive (Negative) A 08/05/20 10:32 San/IV: Voiding Method Condom Catheter Active Medications - Current Medications Current Medications: Generic Name Dose Route Start Last Admin Trade Name Freq PRN Reason Stop Dose Admin Acetaminophen 650 mg 08/05/20 22:08 Acetaminophen 325 Mg Tab PO Q4H PRN Pain MILD(1-3)/Fever >100.5/REDD Amiodarone HCl 200 mg 08/10/20 12:00 08/15/20 09:41 Amiodarone 200 Mg Tab PO 200 mg QDAY DENISE Administration Amlodipine Besylate 10 mg 08/06/20 10:00 08/15/20 09:41 Amlodipine 10 Mg Tab PO 10 mg QAM DENISE Administration Aspirin 81 mg 08/06/20 10:00 08/15/20 09:41 Aspirin Ec 81 Mg Tab PO 81 mg QDAY DENISE Administration Atorvastatin Calcium 80 mg 08/06/20 22:00 08/14/20 22:37 Atorvastatin 40 Mg Tab PO 80 mg QHS DENISE Administration Clopidogrel Bisulfate 75 mg 08/06/20 10:00 08/15/20 09:41 Clopidogrel 75 Mg Tab PO 75 mg QDAY DENISE Administration Enoxaparin Sodium 40 mg 08/06/20 22:00 08/14/20 22:37 Enoxaparin 40 Mg/0.4 Ml Inj SUB-Q 40 mg QDAY@2200 DENISE Administration Protocol Famotidine 20 mg 08/05/20 22:15 08/15/20 09:41 Famotidine 20 Mg Tab PO 20 mg BID DENISE Administration Fenofibrate 48 mg 08/06/20 10:00 08/15/20 09:42 Fenofibrate 48 Mg Tab PO 48 mg QDAY DENISE Administration Furosemide 40 mg 08/06/20 06:00 08/15/20 05:54 Furosemide 40 Mg/4 Ml Inj IV 40 mg 0600,1800 DENISE Administration Hydralazine HCl 10 mg 08/08/20 14:44 08/14/20 03:24 Hydralazine 20 Mg/1 Ml Inj IV 10 mg Q4HR PRN Administration Hypertension Hydromorphone HCl 0.5 mg 08/05/20 22:25 08/08/20 22:40 Hydromorphone 1 Mg/1 Ml Inj IV 0.5 mg Q3H PRN Administration Pain , Severe (7-10) Isosorbide Mononitrate 30 mg 08/06/20 10:00 08/15/20 09:42 Isosorbide Mononitrate Er 30 Mg Tab PO 30 mg DAILY DENISE Administration Losartan Potassium 100 mg 08/06/20 10:00 08/15/20 09:41 Losartan 50 Mg Tab PO 100 mg QDAY DENISE Administration Metoprolol Tartrate 25 mg 08/11/20 22:00 08/15/20 09:41 Metoprolol Tartrate 25 Mg Tab PO 25 mg BID DENISE Administration Ondansetron HCl 4 mg 08/05/20 22:25 08/10/20 08:07 Ondansetron 4 Mg/2 Ml Inj IV 4 mg Q8H PRN Administration Nausea And Vomiting Oxycodone/Acetaminophen 1 tab 08/05/20 22:25 08/14/20 12:52 Oxycodone /Acetaminophen 5-325mg Tab PO 1 tab Q6H PRN Administration Pain, Moderate (4-6) Sodium Chloride 10 ml 08/06/20 10:00 08/15/20 09:42 Sodium Chloride 0.9% 10 Ml Flush Syringe IV 10 ml BID DENISE Administration Sodium Chloride 10 ml 08/05/20 22:25 Sodium Chloride 0.9% 10 Ml Flush Syringe IV PRN PRN LINE FLUSH Tramadol HCl 50 mg 08/05/20 22:08 08/14/20 06:08 Tramadol 50 Mg Tab PO 50 mg Q12H PRN Administration Pain, Moderate (4-6) Nutrition/Malnutrition Assess - Dietary Evaluation Nutrition/Malnutrition Findings: Nutrition Notes Start: 08/06/20 12:34 Freq: Status: Active Protocol: Document 08/13/20 12:42 CW (Rec: 08/13/20 12:52 CW [id number]) Nutrition Notes Initial or Follow up Reassessment Current Diagnosis Coronary Artery Disease, Hypertension,Heart Failure, Respiratory Failure, Hyperlipidemia Other Pertinent Diagnosis SIRS, COVID, pneu, dementia Current Diet Cardiac Labs/Tests K 2.9 BUN 24 Pertinent Medications Lasix Decadron Height 6 ft Weight 67.54 kg [place] Body Weight (kg) 80.90 BMI 20.2 Weight Status Underweight Subjective/Other Information F/U for intakes. Pt did not answer phone x2 for preference updates. However, per RN pt eats well with foods he likes. Some preferences noted from RN. RN reports that pt is drinking ONS. Percent of energy/protein needs met: 91%/86% Burn Absent Trauma Absent GI Symptoms Nausea Cultural/Ethnic/Confucianism Belief dislikes grits Current % PO Negligible Minimum of two criteria No physical signs of malnutrition #2 Nutrition Diagnosis Inadequate oral intake Diagnosis Progress(for reassessment Continues documentation) Is patient on ventilator? No Is Patient Ambulatory and/or Out of Bed No REE-([facility]-confined to bed) [phone] Calculation Used for Recommendations [facility] Additional Notes Protein: 68g - 84 (1 - 1.2g/kg ) Fluid: 1ml/kcal or per MD Nutrition Intervention Change Diet Order: Continue Add Supplement/Snack (indicate name/kcal Ensure Clear BID /protein ) Provides kCal: 480 Provides Protein (gm) 16 Goal #1 Meet at least 75% of protein and energy needs via PO Goal #2 weight gain/ maintanence Anticipated Discharge Needs: Cardiac with ONS PRN Follow-Up By: 08/16/20 Additional Comments F/U for stable intakes
[2020-08-15] MEDS: ENOXAPARIN 40 MG/0.4 ML INJ SUB-Q SCH (22:30)
[2020-08-16] MEDS: FUROSEMIDE 40 MG/4 ML INJ IV SCH ×2 (05:37→18:05)
[2020-08-16] MEDS: LOSARTAN 50 MG TAB PO SCH (10:08)
[2020-08-16] MEDS: CLOPIDOGREL 75 MG TAB PO SCH (10:08)
[2020-08-16] MEDS: ASPIRIN EC 81 MG TAB PO SCH (10:08)
[2020-08-16] MEDS: FAMOTIDINE 20 MG TAB PO SCH ×2 (10:08→22:04)
[2020-08-16] MEDS: oxyCODONE /ACETAMINOPHEN 5-325MG TAB PO PRN ×2 (10:08→18:05)
[2020-08-16] MEDS: AMIODARONE 200 MG TAB PO SCH (10:09)
[2020-08-16] MEDS: METOPROLOL TARTRATE 25 MG TAB PO SCH ×2 (10:09→22:04)
[2020-08-16] MEDS: amLODIPine 10 MG TAB PO SCH (10:09)
[2020-08-16] MEDS: FENOFIBRATE 48 MG TAB PO SCH (10:27)
--- NOTE | 2020-08-16 10:40 | Progress Note ---
Assessment and Plan Assessment and plan: Assessment and Plan Assessment and plan: Atrial fibrillation with rapid ventricular response Currently rate controlled , continue current beta-blockers cardiology team consulted, IV rate control therapy, continue medical management, CHADS 2Vasc Score:3. Pt is high fall risk. Will continue therapy with aspirin. Not a candidate for chronic anticoagulation due to recurrent falls and anemia [Hb 7.9] Coronavirus infection: Coronavirus protocol: Contact and droplet precautions, IV steroid therapy, IV antibiotic therapy, supportive care. Patient on room air oxygen, Continue medical management. Prone position as tolerated Vascular dementia Verbal prompting, verbal redirection, supportive care Cerebral atherosclerosis Risk factor reduction, supportive care, antiplatelet therapy as clinically indicated. Acute on chronic diastolic CHF EF 55 to 60% BNP >35,000 [ 08/05] cardiology following, medications optimized, Low-sodium diet, fluid restriction Hyperlipidemia Low-cholesterol diet, statin therapy as clinically indicated. General debility Physical therapy consulted, case management consulted for assistance with discharge planning to custodial facility versus assisted living facility. DVT prophylaxis SCD to bilateral lower extremities while in bed, prophylactic anticoagulation Advance care planning Full CODE STATUS, Discharge planning; case management, SNF placement Closely monitor the patient and adjust the management as needed Plan of care reviewed with the patient and his nurse as well as case management 08/15/2020; patient is clinically stable for discharge,Awaiting SNF placement A. fib with rapid ventricular rate, rate controlled, not a candidate for chronic anticoagulation Continue aspirin Disposition; discharge to SNF when set up 08/16/20 Patient is doing better. Patient is clinically stable for discharge, waiting for his SNF placement A. fib with rapid ventricular rate, rate controlled, not a candidate for chronic anticoagulation Continue aspirin Disposition; discharge to SNF when set up Case management is working on it. History Interval history: Patient is seen and examined Patient is doing better. Denies any shortness of breath no chest pain. No new complain. Vital signs are stable Hospitalist Physical - Constitutional Vitals: Temp Pulse Resp BP Pulse Ox 98.3 F 54 L 14 130/66 98 08/16/20 03:26 08/16/20 10:18 08/16/20 03:26 08/16/20 10:18 08/16/20 10:18 General appearance: Present: mild distress, well-nourished HEART Score - HEART Score Troponin: Troponin T 0.127 ng/mL (0.00-0.029) H* 08/05/20 16:25 Results - Labs CBC & Chem 7: 08/14/20 15:18 08/14/20 15:18 Labs: Laboratory Last Values WBC 15.0 K/mm3 (4.5-11.0) H 08/14/20 15:18 RBC 3.22 M/mm3 (3.65-5.03) L 08/14/20 15:18 Hgb 8.7 gm/dl (11.8-15.2) L 08/14/20 15:18 Hct 26.5 % (35.5-45.6) L 08/14/20 15:18 MCV 82 fl (84-94) L 08/14/20 15:18 MCH 27 pg (28-32) L 08/14/20 15:18 MCHC 33 % (32-34) 08/14/20 15:18 RDW 18.3 % (13.2-15.2) H 08/14/20 15:18 Plt Count 496 K/mm3 (140-440) H 08/14/20 15:18 Add Manual Diff Complete 08/14/20 15:18 Total Counted 100 08/14/20 15:18 Seg Neutrophils % [employer] 08/14/20 15:18 Seg Neuts % (Manual) 95.0 % (40.0-70.0) H 08/08/20 17:08 Band Neutrophils % 1.0 % 08/14/20 15:18 Lymphocytes % (Manual) 1.0 % (13.4-35.0) L 08/14/20 15:18 Monocytes % (Manual) 3.0 % (0.0-7.3) 08/14/20 15:18 Nucleated RBC % Not Reportable 08/14/20 15:18 Seg Neutrophils # Man 14.3 K/mm3 (1.8-7.7) H 08/14/20 15:18 Band Neutrophils # 0.2 K/mm3 08/14/20 15:18 Lymphocytes # (Manual) 0.2 K/mm3 (1.2-5.4) L 08/14/20 15:18 Abs React Lymphs (Man) 0.0 K/mm3 08/14/20 15:18 Monocytes # (Manual) 0.5 K/mm3 (0.0-0.8) 08/14/20 15:18 Eosinophils # (Manual) 0.0 K/mm3 (0.0-0.4) 08/14/20 15:18 Basophils # (Manual) 0.0 K/mm3 (0.0-0.1) 08/14/20 15:18 Metamyelocytes # 0.0 K/mm3 08/14/20 15:18 Myelocytes # 0.0 K/mm3 08/14/20 15:18 Promyelocytes # 0.0 K/mm3 08/14/20 15:18 Blast Cells # 0.0 K/mm3 08/14/20 15:18 WBC Morphology Not Reportable 08/14/20 15:18 Hypersegmented Neuts Not Reportable 08/14/20 15:18 Hyposegmented Neuts Not Reportable 08/14/20 15:18 Hypogranular Neuts Not Reportable 08/14/20 15:18 Smudge Cells Not Reportable 08/14/20 15:18 Toxic Granulation Not Reportable 08/14/20 15:18 Toxic Vacuolation Not Reportable 08/14/20 15:18 Dohle Bodies Not Reportable 08/14/20 15:18 Pelger-Huet Anomaly Not Reportable 08/14/20 15:18 Cheri Rods Not Reportable 08/14/20 15:18 Platelet Estimate Consistent w auto 08/14/20 15:18 Clumped Platelets Not Reportable 08/14/20 15:18 Plt Clumps, EDTA Not Reportable 08/14/20 15:18 Large Platelets Rare 08/14/20 15:18 Giant Platelets Not Reportable 08/14/20 15:18 Platelet Satelliting Not Reportable 08/14/20 15:18 Plt Morphology Comment Not Reportable 08/14/20 15:18 RBC Morphology Not Reportable 08/14/20 15:18 Dimorphic RBCs Not Reportable 08/14/20 15:18 Polychromasia Not Reportable 08/14/20 15:18 Hypochromasia Not Reportable 08/14/20 15:18 Poikilocytosis Not Reportable 08/14/20 15:18 Anisocytosis Not Reportable 08/14/20 15:18 Microcytosis Not Reportable 08/14/20 15:18 Macrocytosis Not Reportable 08/14/20 15:18 Spherocytes Not Reportable 08/14/20 15:18 Pappenheimer Bodies Not Reportable 08/14/20 15:18 Sickle Cells Not Reportable 08/14/20 15:18 Target Cells Not Reportable 08/14/20 15:18 Tear Drop Cells Not Reportable 08/14/20 15:18 Ovalocytes Rare 08/14/20 15:18 Helmet Cells Rare 08/14/20 15:18 Blackwell-Marrero Bodies Not Reportable 08/14/20 15:18 [place] Rings Not Reportable 08/14/20 15:18 Jennings Cells Not Reportable 08/14/20 15:18 Bite Cells Not Reportable 08/14/20 15:18 Crenated Cell Not Reportable 08/14/20 15:18 Elliptocytes Not Reportable 08/14/20 15:18 Acanthocytes (Spur) Not Reportable 08/14/20 15:18 Rouleaux Not Reportable 08/14/20 15:18 Hemoglobin C Crystals Not Reportable 08/14/20 15:18 Schistocytes Not Reportable 08/14/20 15:18 Malaria parasites Not Reportable 08/14/20 15:18 Mc Bodies Not Reportable 08/14/20 15:18 Hem Pathologist Commnt No 08/14/20 15:18 D-Dimer 1218.20 ng/mlDDU (0-234) H 08/05/20 16:25 Sodium 139 mmol/L (137-145) 08/14/20 15:18 Potassium 3.9 mmol/L (3.6-5.0) D 08/14/20 15:18 Chloride 98.5 mmol/L (98-107) 08/14/20 15:18 Carbon Dioxide 28 mmol/L (22-30) 08/14/20 15:18 Anion Gap 16 mmol/L 08/14/20 15:18 BUN 39 mg/dL (9-20) H 08/14/20 15:18 Creatinine 1.4 mg/dL (0.8-1.3) H 08/14/20 15:18 Estimated GFR > 60 ml/min 08/14/20 15:18 BUN/Creatinine Ratio 28 % 08/14/20 15:18 Glucose 106 mg/dL (75-100) H 08/14/20 15:18 POC Glucose 219 mg/dL (70-105) H 08/14/20 21:55 Hemoglobin A1c < 4.0 % (4-6) L 08/06/20 06:55 Lactic Acid 0.50 mmol/L (0.7-2.0) L 08/05/20 19:51 Calcium 9.2 mg/dL (8.4-10.2) 08/14/20 15:18 Magnesium 1.80 mg/dL (1.7-2.3) 08/14/20 15:18 Iron 21 ug/dL (49-181) L 08/05/20 23:23 TIBC 232 mcg/dL (250-450) L 08/05/20 23:23 % Saturation 9.05 % 08/05/20 23:23 Transferrin 189 mg/dl (180-329) 08/05/20 23:23 Ferritin 817.3 ng/mL (30.0-300.0) H 08/05/20 16:25 Total Bilirubin 0.20 mg/dL (0.1-1.2) 08/14/20 15:18 AST 11 units/L (5-40) 08/14/20 15:18 ALT 6 units/L (7-56) L 08/14/20 15:18 Alkaline Phosphatase 40 units/L (35-129) 08/14/20 15:18 Lactate Dehydrogenase 225 units/L (91-180) H 08/05/20 16:25 Troponin T 0.127 ng/mL (0.00-0.029) H* 08/05/20 16:25 C-Reactive Protein 8.30 mg/dL (0.00-1.30) H 08/05/20 16:25 NT-Pro-B Natriuret Pep > 58180 pg/mL (0-900) H 08/05/20 16:25 Total Protein 5.8 g/dL (6.3-8.2) L 08/14/20 15:18 Albumin 3.7 g/dL (3.9-5) L 08/14/20 15:18 Albumin/Globulin Ratio 1.8 % 08/14/20 15:18 Triglycerides 93 mg/dL (2-149) 08/05/20 16:25 Cholesterol 154 mg/dL (50-199) 08/05/20 16:25 LDL Cholesterol Direct 72 mg/dL (50-130) 08/05/20 16:25 HDL Cholesterol 61 mg/dL (40-59) H 08/05/20 16:25 Cholesterol/HDL Ratio 2.52 % 08/05/20 16:25 Vitamin B12 753.2 pg/mL (211-911) 08/05/20 23:23 RBC Folic Acid >1000 ng/mL (>280) 08/05/20 23:23 Procalcitonin 0.31 ng/mL (<0.15) 08/05/20 16:25 TSH 0.369 mlU/mL (0.270-4.200) 08/09/20 14:46 Coronavirus (PCR) Positive (Negative) A 08/05/20 10:32 San/IV: Voiding Method Condom Catheter Active Medications - Current Medications Current Medications: Generic Name Dose Route Start Last Admin Trade Name Freq PRN Reason Stop Dose Admin Acetaminophen 650 mg 08/05/20 22:08 Acetaminophen 325 Mg Tab PO Q4H PRN Pain MILD(1-3)/Fever >100.5/REDD Amiodarone HCl 200 mg 08/10/20 12:00 08/16/20 10:09 Amiodarone 200 Mg Tab PO Not Given QDAY [facility] Amlodipine Besylate 10 mg 08/06/20 10:00 08/16/20 10:09 Amlodipine 10 Mg Tab PO Not Given [facility] Aspirin 81 mg 08/06/20 10:00 08/16/20 10:08 Aspirin Ec 81 Mg Tab PO 81 mg QDAY DENISE Administration Atorvastatin Calcium 80 mg 08/06/20 22:00 08/15/20 22:30 Atorvastatin 40 Mg Tab PO 80 mg QHS DENISE Administration Clopidogrel Bisulfate 75 mg 08/06/20 10:00 08/16/20 10:08 Clopidogrel 75 Mg Tab PO 75 mg QDAY DENISE Administration Enoxaparin Sodium 40 mg 08/06/20 22:00 08/15/20 22:30 Enoxaparin 40 Mg/0.4 Ml Inj SUB-Q 40 mg QDAY@2200 DENISE Administration Protocol Famotidine 20 mg 08/05/20 22:15 08/16/20 10:08 Famotidine 20 Mg Tab PO 20 mg BID DENISE Administration Fenofibrate 48 mg 08/06/20 10:00 08/16/20 10:27 Fenofibrate 48 Mg Tab PO 48 mg QDAY DENISE Administration Furosemide 40 mg 08/06/20 06:00 08/16/20 05:37 Furosemide 40 Mg/4 Ml Inj IV 40 mg 0600,1800 DENISE Administration Hydralazine HCl 10 mg 08/08/20 14:44 08/14/20 03:24 Hydralazine 20 Mg/1 Ml Inj IV 10 mg Q4HR PRN Administration Hypertension Hydromorphone HCl 0.5 mg 08/05/20 22:25 08/08/20 22:40 Hydromorphone 1 Mg/1 Ml Inj IV 0.5 mg Q3H PRN Administration Pain , Severe (7-10) Isosorbide Mononitrate 30 mg 08/06/20 10:00 08/16/20 10:09 Isosorbide Mononitrate Er 30 Mg Tab PO 30 mg DAILY DENISE Administration Losartan Potassium 100 mg 08/06/20 10:00 08/16/20 10:08 Losartan 50 Mg Tab PO Not Given QDAY DENISE Metoprolol Tartrate 25 mg 08/11/20 22:00 08/16/20 10:09 Metoprolol Tartrate 25 Mg Tab PO Not Given BID DENISE Ondansetron HCl 4 mg 08/05/20 22:25 08/10/20 08:07 Ondansetron 4 Mg/2 Ml Inj IV 4 mg Q8H PRN Administration Nausea And Vomiting Oxycodone/Acetaminophen 1 tab 08/05/20 22:25 08/16/20 10:08 Oxycodone /Acetaminophen 5-325mg Tab PO 1 tab Q6H PRN Administration Pain, Moderate (4-6) Sodium Chloride 10 ml 08/06/20 10:00 08/16/20 10:21 Sodium Chloride 0.9% 10 Ml Flush Syringe IV 10 ml BID DENISE Administration Sodium Chloride 10 ml 08/05/20 22:25 Sodium Chloride 0.9% 10 Ml Flush Syringe IV PRN PRN LINE FLUSH Tramadol HCl 50 mg 08/05/20 22:08 08/14/20 06:08 Tramadol 50 Mg Tab PO 50 mg Q12H PRN Administration Pain, Moderate (4-6) Nutrition/Malnutrition Assess - Dietary Evaluation Nutrition/Malnutrition Findings: Nutrition Notes Start: 08/06/20 12:34 Freq: Status: Active Protocol: Document 08/16/20 08:59 AT (Rec: 08/16/20 09:04 AT [id number]) Co-Sign 08/16/20 08:59 CW Nutrition Notes Initial or Follow up Reassessment Current Diagnosis Coronary Artery Disease, Hypertension,Heart Failure, Respiratory Failure, Hyperlipidemia Other Pertinent Diagnosis SIRS, COVID, pneu, dementia Current Diet Cardiac Labs/Tests BUN 39 Cr 1.4 Pertinent Medications Reviewed Height 6 ft Weight 65.1 kg [place] Body Weight (kg) 80.90 BMI 19.4 Weight change and time frame 3.6% weight loss x 10 days Weight Status Underweight Subjective/Other Information Follow up for stable intakes. Per chart, pt is consuming 33% of meals on average. - Malnutrition Assessment Minimum of two criteria: No physical signs of malnutrition - Attestation Statement I have reviewed and agreed w/ Malnutrition eval & tx plan: Yes
--- NOTE | 2020-08-16 12:25 | Progress Note ---
Assessment and Plan - Patient Problems (1) Acute respiratory failure with hypoxia Current Visit: Yes Status: Acute Plan to address problem: Patient from a alf who presented with shortness of breath, hypoxemia and bilateral pulmonary infiltrates worse on the right. He is under treatment for positive COVID-19 pneumonia. (2) Paroxysmal atrial fibrillation Current Visit: Yes Status: Acute Plan to address problem: Patient has paroxysmal atrial fibrillation, new onset during this presentation with acute Covid pneumonia. He has returned to a stable sinus rhythm on medical therapy for atrial fibrillation suppression. Echocardiogram during this admission has reported well-preserved left ventricular systolic ejection fraction of 55 to 60%. He is not a candidate for oral anticoagulation at this time due to a persistent severe anemia. Subjective Date of service: 08/16/20 Principal diagnosis: Covid pneumonia, acute respiratory failure with hypoxia Interval history: No cardiac complaints, patient is currently in a stable sinus bradycardia with heart rates in the high 50s. Objective Vital Signs Temp Pulse Resp BP Pulse Ox 08/16/20 10:18 54 L 130/66 98 08/16/20 03:26 98.3 F 14 115/58 08/16/20 00:44 76 99 08/16/20 00:25 98.3 F 18 137/67 08/15/20 22:26 131/70 08/15/20 16:28 98.9 F 57 L 18 127/62 98 - Physical Examination General: No Apparent Distress HEENT: Positive: PERRL Neck: Positive: neck supple Cardiac: Positive: Regular Rhythm Lungs: Positive: Decreased Breath Sounds Neuro: Positive: Weakness (Generalized lethargy and fatigue) Abdomen: Positive: Soft Skin: Positive: Clear Extremities: Absent: edema - Imaging and Cardiology EKG: report reviewed
[2020-08-16] MEDS: ENOXAPARIN 40 MG/0.4 ML INJ SUB-Q SCH (22:04)
[2020-08-16] MEDS: traMADol 50 MG TAB PO PRN (22:09)
[2020-08-17 01:03] LABS: Basophils % (Auto) 0.2 % (0.0-1.8); Eosinophils # (Auto) 0.3 K/mm3 (0.0-0.4); Eosinophils % (Auto) 1.8 % (0.0-4.3); Hematocrit 25.8 % (35.5-45.6); Hemoglobin 8.3 gm/dl (11.8-15.2); Lymphocytes # (Auto) 1.2 K/mm3 (1.2-5.4); Lymphocytes % (Auto) 6.9 % (13.4-35.0); Mean Corpuscular HGB Conc 32 % (32-34); Mean Corpuscular Volume 83 fl (84-94); Monocytes # (Auto) 1.4 K/mm3 (0.0-0.8); Monocytes % (Auto) 8.4 % (0.0-7.3); Platelet Count 371 K/mm3 (140-440); Red Blood Count 3.12 M/mm3 (3.65-5.03); Red Cell Distribution Width 18.7 % (13.2-15.2)
[2020-08-17] MEDS: FUROSEMIDE 40 MG/4 ML INJ IV SCH ×2 (05:21→22:09)
[2020-08-17] MEDS ORDERED: cefTRIAXone/NS 2 GM/100 ML 2 GM/100 ML BAG IV SCH (08:00)
--- NOTE | 2020-08-17 08:48 | Progress Note ---
Assessment and Plan Atrial fibrillation, paroxysmal pt has reverted to sinus rhythm normal TSH at 0.369 Nausea with vomiting -resolved Acute hypoxic respiratory failure COVID-19 infection Anemia Echocardiogram during this admission has reported well-preserved left ventricular systolic ejection fraction of 55-60%. 02/2018 Echocardiogram reported normal left ventricular systolic function, ejection fraction 55-60%. There was mild aortic stenosis. 07/2017 MPI -normal perfusion scan. Continue oral amiodarone and metoprolol for atrial fibrillation suppression. He is considered not a candidate for oral anticoagulation due to a persistent severe anemia. Subjective Date of service: 08/17/20 Principal diagnosis: Covid pneumonia, acute respiratory failure with hypoxia Interval history: Patient is resting in bed comfortably. Currently, he is stable sinus rhythm on telemetry. Objective Vital Signs Temp Pulse Resp BP Pulse Ox 08/17/20 05:52 98.2 F 67 15 142/77 98 08/16/20 22:43 97.6 F 53 L 16 113/62 98 08/16/20 22:04 56 L 08/16/20 16:20 97.8 F 54 L 18 124/67 99 08/16/20 12:16 98.5 F 53 L 18 116/66 98 08/16/20 10:18 54 L 130/66 98 - Physical Examination Narrative exam: Deferred due to isolation protocol. General: No Apparent Distress Cardiac: Positive: Reg Rate and Rhythm - Labs and Meds CBC 08/17/20 Range/Units 00:18 WBC 17.1 H (4.5-11.0) K/mm3 RBC 3.12 L (3.65-5.03) M/mm3 Hgb 8.3 L (11.8-15.2) gm/dl Hct 25.8 L (35.5-45.6) % Plt Count 371 (140-440) K/mm3 Lymph # (Auto) 1.2 (1.2-5.4) K/mm3 [place] # (Auto) 1.4 H (0.0-0.8) K/mm3 Eos # (Auto) 0.3 (0.0-0.4) K/mm3 Baso # (Auto) 0.0 (0.0-0.1) K/mm3
[2020-08-17] MEDS: CLOPIDOGREL 75 MG TAB PO SCH ×2 (09:39→13:32)
[2020-08-17] MEDS: FENOFIBRATE 48 MG TAB PO SCH (09:39)
[2020-08-17] MEDS: ASPIRIN EC 81 MG TAB PO SCH (09:39)
[2020-08-17] MEDS: amLODIPine 10 MG TAB PO SCH ×2 (09:41→13:32)
[2020-08-17] MEDS: METOPROLOL TARTRATE 25 MG TAB PO SCH ×3 (09:41→22:05)
[2020-08-17] MEDS: AMIODARONE 200 MG TAB PO SCH ×2 (09:41→13:32)
[2020-08-17] MEDS: LOSARTAN 50 MG TAB PO SCH (09:41)
[2020-08-17] MEDS ORDERED: AZITHROMYCIN 250 MG TAB PO SCH (10:00)
--- NOTE | 2020-08-17 10:20 | Progress Note ---
Assessment and Plan Assessment and plan: Assessment and Plan Assessment and plan: Atrial fibrillation with rapid ventricular response Currently rate controlled , continue current beta-blockers cardiology team consulted, IV rate control therapy, continue medical management, CHADS 2Vasc Score:3. Pt is high fall risk. Will continue therapy with aspirin. Not a candidate for chronic anticoagulation due to recurrent falls and anemia [Hb 7.9] Coronavirus infection: Coronavirus protocol: Contact and droplet precautions, IV steroid therapy, IV antibiotic therapy, supportive care. Patient on room air oxygen, Continue medical management. Prone position as tolerated Vascular dementia Verbal prompting, verbal redirection, supportive care Cerebral atherosclerosis Risk factor reduction, supportive care, antiplatelet therapy as clinically indicated. Acute on chronic diastolic CHF EF 55 to 60% BNP >35,000 [ 08/05] cardiology following, medications optimized, Low-sodium diet, fluid restriction Hyperlipidemia Low-cholesterol diet, statin therapy as clinically indicated. General debility Physical therapy consulted, case management consulted for assistance with discharge planning to half-way facility versus assisted living facility. DVT prophylaxis SCD to bilateral lower extremities while in bed, prophylactic anticoagulation Advance care planning Full CODE STATUS, Discharge planning; case management, SNF placement Closely monitor the patient and adjust the management as needed Plan of care reviewed with the patient and his nurse as well as case management 08/15/2020; patient is clinically stable for discharge,Awaiting SNF placement A. fib with rapid ventricular rate, rate controlled, not a candidate for chronic anticoagulation Continue aspirin Disposition; discharge to SNF when set up 08/16/20 Patient is doing better. Patient is clinically stable for discharge, waiting for his SNF placement A. fib with rapid ventricular rate, rate controlled, not a candidate for chronic anticoagulation Continue aspirin Disposition; discharge to SNF when set up Case management is working on it. 08/17/20 Patient is doing better. No new complaint. No chest pain no shortness of breath. No anticoagulation for A. fib as per cardiology because of anemia WBC 17.1. We have started Rocephin 2 g IV daily and Zithromax to 50 mg p.o. daily Recheck CBC in the morning Patient is waiting for placement Case management is working on it. History Interval history: Patient is seen and examined Patient is doing better. Denies any shortness of breath no chest pain. No new complain. Vital signs are stable Hospitalist Physical - Constitutional Vitals: Temp Pulse Resp BP Pulse Ox 98.2 F 67 15 142/77 98 08/17/20 05:52 08/17/20 05:52 08/17/20 05:52 08/17/20 05:52 08/17/20 05:52 General appearance: Present: mild distress, well-nourished HEART Score - HEART Score Troponin: Troponin T 0.127 ng/mL (0.00-0.029) H* 08/05/20 16:25 Results - Labs CBC & Chem 7: 08/17/20 00:18 08/14/20 15:18 Labs: Laboratory Last Values WBC 17.1 K/mm3 (4.5-11.0) H 08/17/20 00:18 RBC 3.12 M/mm3 (3.65-5.03) L 08/17/20 00:18 Hgb 8.3 gm/dl (11.8-15.2) L 08/17/20 00:18 Hct 25.8 % (35.5-45.6) L 08/17/20 00:18 MCV 83 fl (84-94) L 08/17/20 00:18 MCH 27 pg (28-32) L 08/17/20 00:18 MCHC 32 % (32-34) 08/17/20 00:18 RDW 18.7 % (13.2-15.2) H 08/17/20 00:18 Plt Count 371 K/mm3 (140-440) 08/17/20 00:18 Lymph % (Auto) 6.9 % (13.4-35.0) L 08/17/20 00:18 [place] % (Auto) 8.4 % (0.0-7.3) H 08/17/20 00:18 Eos % (Auto) 1.8 % (0.0-4.3) 08/17/20 00:18 Baso % (Auto) 0.2 % (0.0-1.8) 08/17/20 00:18 Lymph # (Auto) 1.2 K/mm3 (1.2-5.4) 08/17/20 00:18 [place] # (Auto) 1.4 K/mm3 (0.0-0.8) H 08/17/20 00:18 Eos # (Auto) 0.3 K/mm3 (0.0-0.4) 08/17/20 00:18 Baso # (Auto) 0.0 K/mm3 (0.0-0.1) 08/17/20 00:18 Add Manual Diff Complete 08/14/20 15:18 Total Counted 100 08/14/20 15:18 Seg Neutrophils % 82.7 % (40.0-70.0) H 08/17/20 00:18 Seg Neuts % (Manual) 95.0 % (40.0-70.0) H 08/08/20 17:08 Band Neutrophils % 1.0 % 08/14/20 15:18 Lymphocytes % (Manual) 1.0 % (13.4-35.0) L 08/14/20 15:18 Monocytes % (Manual) 3.0 % (0.0-7.3) 08/14/20 15:18 Nucleated RBC % Not Reportable 08/14/20 15:18 Seg Neutrophils # 14.1 K/mm3 (1.8-7.7) H 08/17/20 00:18 Seg Neutrophils # Man 14.3 K/mm3 (1.8-7.7) H 08/14/20 15:18 Band Neutrophils # 0.2 K/mm3 08/14/20 15:18 Lymphocytes # (Manual) 0.2 K/mm3 (1.2-5.4) L 08/14/20 15:18 Abs React Lymphs (Man) 0.0 K/mm3 08/14/20 15:18 Monocytes # (Manual) 0.5 K/mm3 (0.0-0.8) 08/14/20 15:18 Eosinophils # (Manual) 0.0 K/mm3 (0.0-0.4) 08/14/20 15:18 Basophils # (Manual) 0.0 K/mm3 (0.0-0.1) 08/14/20 15:18 Metamyelocytes # 0.0 K/mm3 08/14/20 15:18 Myelocytes # 0.0 K/mm3 08/14/20 15:18 Promyelocytes # 0.0 K/mm3 08/14/20 15:18 Blast Cells # 0.0 K/mm3 08/14/20 15:18 WBC Morphology Not Reportable 08/14/20 15:18 Hypersegmented Neuts Not Reportable 08/14/20 15:18 Hyposegmented Neuts Not Reportable 08/14/20 15:18 Hypogranular Neuts Not Reportable 08/14/20 15:18 Smudge Cells Not Reportable 08/14/20 15:18 Toxic Granulation Not Reportable 08/14/20 15:18 Toxic Vacuolation Not Reportable 08/14/20 15:18 Dohle Bodies Not Reportable 08/14/20 15:18 Pelger-Huet Anomaly Not Reportable 08/14/20 15:18 Cheri Rods Not Reportable 08/14/20 15:18 Platelet Estimate Consistent w auto 08/14/20 15:18 Clumped Platelets Not Reportable 08/14/20 15:18 Plt Clumps, EDTA Not Reportable 08/14/20 15:18 Large Platelets Rare 08/14/20 15:18 Giant Platelets Not Reportable 08/14/20 15:18 Platelet Satelliting Not Reportable 08/14/20 15:18 Plt Morphology Comment Not Reportable 08/14/20 15:18 RBC Morphology Not Reportable 08/14/20 15:18 Dimorphic RBCs Not Reportable 08/14/20 15:18 Polychromasia Not Reportable 08/14/20 15:18 Hypochromasia Not Reportable 08/14/20 15:18 Poikilocytosis Not Reportable 08/14/20 15:18 Anisocytosis Not Reportable 08/14/20 15:18 Microcytosis Not Reportable 08/14/20 15:18 Macrocytosis Not Reportable 08/14/20 15:18 Spherocytes Not Reportable 08/14/20 15:18 Pappenheimer Bodies Not Reportable 08/14/20 15:18 Sickle Cells Not Reportable 08/14/20 15:18 Target Cells Not Reportable 08/14/20 15:18 Tear Drop Cells Not Reportable 08/14/20 15:18 Ovalocytes Rare 08/14/20 15:18 Helmet Cells Rare 08/14/20 15:18 [place] Bodies Not Reportable 08/14/20 15:18 [place] Rings Not Reportable 08/14/20 15:18 [place] Cells Not Reportable 08/14/20 15:18 Bite Cells Not Reportable 08/14/20 15:18 Crenated Cell Not Reportable 08/14/20 15:18 Elliptocytes Not Reportable 08/14/20 15:18 Acanthocytes (Spur) Not Reportable 08/14/20 15:18 Rouleaux Not Reportable 08/14/20 15:18 Hemoglobin C Crystals Not Reportable 08/14/20 15:18 Schistocytes Not Reportable 08/14/20 15:18 Malaria parasites Not Reportable 08/14/20 15:18 Mc Bodies Not Reportable 08/14/20 15:18 Hem Pathologist Commnt No 08/14/20 15:18 D-Dimer 1218.20 ng/mlDDU (0-234) H 08/05/20 16:25 Sodium 139 mmol/L (137-145) 08/14/20 15:18 Potassium 3.9 mmol/L (3.6-5.0) D 08/14/20 15:18 Chloride 98.5 mmol/L (98-107) 08/14/20 15:18 Carbon Dioxide 28 mmol/L (22-30) 08/14/20 15:18 Anion Gap 16 mmol/L 08/14/20 15:18 BUN 39 mg/dL (9-20) H 08/14/20 15:18 Creatinine 1.4 mg/dL (0.8-1.3) H 08/14/20 15:18 Estimated GFR > 60 ml/min 08/14/20 15:18 BUN/Creatinine Ratio 28 % 08/14/20 15:18 Glucose 106 mg/dL (75-100) H 08/14/20 15:18 POC Glucose 219 mg/dL (70-105) H 08/14/20 21:55 Hemoglobin A1c < 4.0 % (4-6) L 08/06/20 06:55 Lactic Acid 0.50 mmol/L (0.7-2.0) L 08/05/20 19:51 Calcium 9.2 mg/dL (8.4-10.2) 08/14/20 15:18 Magnesium 1.80 mg/dL (1.7-2.3) 08/14/20 15:18 Iron 21 ug/dL (49-181) L 08/05/20 23:23 TIBC 232 mcg/dL (250-450) L 08/05/20 23:23 % Saturation 9.05 % 08/05/20 23:23 Transferrin 189 mg/dl (180-329) 08/05/20 23:23 Ferritin 817.3 ng/mL (30.0-300.0) H 08/05/20 16:25 Total Bilirubin 0.20 mg/dL (0.1-1.2) 08/14/20 15:18 AST 11 units/L (5-40) 08/14/20 15:18 ALT 6 units/L (7-56) L 08/14/20 15:18 Alkaline Phosphatase 40 units/L (35-129) 08/14/20 15:18 Lactate Dehydrogenase 225 units/L (91-180) H 08/05/20 16:25 Troponin T 0.127 ng/mL (0.00-0.029) H* 08/05/20 16:25 C-Reactive Protein 8.30 mg/dL (0.00-1.30) H 08/05/20 16:25 NT-Pro-B Natriuret Pep > 45965 pg/mL (0-900) H 08/05/20 16:25 Total Protein 5.8 g/dL (6.3-8.2) L 08/14/20 15:18 Albumin 3.7 g/dL (3.9-5) L 08/14/20 15:18 Albumin/Globulin Ratio 1.8 % 08/14/20 15:18 Triglycerides 93 mg/dL (2-149) 08/05/20 16:25 Cholesterol 154 mg/dL (50-199) 08/05/20 16:25 LDL Cholesterol Direct 72 mg/dL (50-130) 08/05/20 16:25 HDL Cholesterol 61 mg/dL (40-59) H 08/05/20 16:25 Cholesterol/HDL Ratio 2.52 % 08/05/20 16:25 Vitamin B12 753.2 pg/mL (211-911) 08/05/20 23:23 RBC Folic Acid >1000 ng/mL (>280) 08/05/20 23:23 Procalcitonin 0.31 ng/mL (<0.15) 08/05/20 16:25 TSH 0.369 mlU/mL (0.270-4.200) 08/09/20 14:46 Coronavirus (PCR) Positive (Negative) A 08/15/20 09:49 San/IV: Voiding Method Condom Catheter Active Medications - Current Medications Current Medications: Generic Name Dose Route Start Last Admin Trade Name Freq PRN Reason Stop Dose Admin Acetaminophen 650 mg 08/05/20 22:08 Acetaminophen 325 Mg Tab PO Q4H PRN Pain MILD(1-3)/Fever >100.5/REDD Amiodarone HCl 200 mg 08/10/20 12:00 08/17/20 09:41 Amiodarone 200 Mg Tab PO Not Given QDAY DENISE Amlodipine Besylate 10 mg 08/06/20 10:00 08/17/20 09:41 Amlodipine 10 Mg Tab PO [facility] [place] Aspirin 81 mg 08/06/20 10:00 08/17/20 09:39 Aspirin Ec 81 Mg Tab PO 81 mg QDAY DENISE Administration Atorvastatin Calcium 80 mg 08/06/20 22:00 08/16/20 22:04 Atorvastatin 40 Mg Tab PO 80 mg QHS DENISE Administration Azithromycin 250 mg 08/17/20 10:00 Azithromycin 250 Mg Tab PO QDAY [facility] Protocol Clopidogrel Bisulfate 75 mg 08/06/20 10:00 08/17/20 09:39 Clopidogrel 75 Mg Tab PO 75 mg QDAY [facility] Administration Enoxaparin Sodium 40 mg 08/06/20 22:00 08/16/20 22:04 Enoxaparin 40 Mg/0.4 Ml Inj SUB-Q 40 mg QDAY@2200 [facility] Administration Protocol Famotidine 20 mg 08/05/20 22:15 08/16/20 22:04 Famotidine 20 Mg Tab PO 20 mg BID DENISE Administration Fenofibrate 48 mg 08/06/20 10:00 08/17/20 09:39 Fenofibrate 48 Mg Tab PO 48 mg QDAY DENISE Administration Furosemide 40 mg 08/06/20 06:00 08/17/20 05:21 Furosemide 40 Mg/4 Ml Inj IV 40 mg 0600,1800 DENISE Administration Hydralazine HCl 10 mg 08/08/20 14:44 08/14/20 03:24 Hydralazine 20 Mg/1 Ml Inj IV 10 mg Q4HR PRN Administration Hypertension Hydromorphone HCl 0.5 mg 08/05/20 22:25 08/08/20 22:40 Hydromorphone 1 Mg/1 Ml Inj IV 0.5 mg Q3H PRN Administration Pain , Severe (7-10) Ceftriaxone Sodium 2 gm in 100 mls @ 200 mls/hr 08/17/20 08:00 08/17/20 09:40 Rocephin/Ns 2 Gm/100 Ml IV Infused Q24H DENISE Infusion Protocol Isosorbide Mononitrate 30 mg 08/06/20 10:00 08/16/20 10:09 Isosorbide Mononitrate Er 30 Mg Tab PO 30 mg DAILY DENISE Administration Losartan Potassium 100 mg 08/06/20 10:00 08/17/20 09:41 Losartan 50 Mg Tab PO Not Given QDAY DENISE Metoprolol Tartrate 25 mg 08/11/20 22:00 08/17/20 09:41 Metoprolol Tartrate 25 Mg Tab PO Not Given BID DENISE Ondansetron HCl 4 mg 08/05/20 22:25 08/10/20 08:07 Ondansetron 4 Mg/2 Ml Inj IV 4 mg Q8H PRN Administration Nausea And Vomiting Oxycodone/Acetaminophen 1 tab 08/05/20 22:25 08/16/20 18:05 Oxycodone /Acetaminophen 5-325mg Tab PO 1 tab Q6H PRN Administration Pain, Moderate (4-6) Sodium Chloride 10 ml 08/06/20 10:00 08/17/20 09:42 Sodium Chloride 0.9% 10 Ml Flush Syringe IV 10 ml BID DENISE Administration Sodium Chloride 10 ml 08/05/20 22:25 Sodium Chloride 0.9% 10 Ml Flush Syringe IV PRN PRN LINE FLUSH Tramadol HCl 50 mg 08/05/20 22:08 08/16/20 22:09 Tramadol 50 Mg Tab PO 50 mg Q12H PRN Administration Pain, Moderate (4-6) Nutrition/Malnutrition Assess - Dietary Evaluation Nutrition/Malnutrition Findings: Nutrition Notes Start: 08/06/20 12:34 Freq: Status: Active Protocol: Document 08/16/20 08:59 AT (Rec: 08/16/20 09:04 AT [id number]) Co-Sign 08/16/20 08:59 CW Nutrition Notes Initial or Follow up Reassessment Current Diagnosis Coronary Artery Disease, Hypertension,Heart Failure, Respiratory Failure, Hyperlipidemia Other Pertinent Diagnosis SIRS, COVID, pneu, dementia Current Diet Cardiac Labs/Tests BUN 39 Cr 1.4 Pertinent Medications Reviewed Height 6 ft Weight 65.1 kg [place] Body Weight (kg) 80.90 BMI 19.4 Weight change and time frame 3.6% weight loss x 10 days Weight Status Underweight Subjective/Other Information Follow up for stable intakes. Per chart, pt is consuming 33% of meals on average. Per electrostatic powder coating technician, pt is consumed 25% of breakfast this morning and 0% of ONS. Percent of energy/protein needs met: 32%/31% Burn Absent Trauma Absent GI Symptoms Vomiting Current % PO Poor (25-49%) Minimum of two criteria No physical signs of malnutrition #2 Nutrition Diagnosis Inadequate oral intake Diagnosis Progress(for reassessment Continues documentation) Is patient on ventilator? No Is Patient Ambulatory and/or Out of Bed No REE-([place]obel-St. Jeor-confined to bed) 2628.028 Calculation [facility]ations [facility] Additional Notes PRO needs: 65-78g (1-1.2g/kg) Fluid needs: 1 mL/kcal or per MD Nutrition Intervention Change Diet Order: Continue Add Supplement/Snack (indicate name/kcal Ensure Clear BID /protein ) Provides kCal: 480 Provides Protein (gm) 16 Goal #1 Meet at least 75% of estimated energy and protein needs via diet and ONS Goal #2 Weight gain/weight maintenance Anticipated Discharge Needs: Cardiac with ONS PRN Follow-Up By: 08/20/20 Additional Comments F/U for stable intakes - Malnutrition Assessment Minimum of two criteria: No - Attestation Statement I have reviewed and agreed w/ Malnutrition eval & tx plan: Yes
[2020-08-17] MEDS: FAMOTIDINE 20 MG TAB PO SCH ×2 (11:27→22:06)
--- NOTE | 2020-08-17 13:02 | Discharge Summary ---
Providers - Providers Date of Admission: 08/05/20 21:51 Date of discharge: 08/17/20 Attending physician: EDY PETER MD 08/05/20 22:25 Consult to Physician [CONS] Routine Comment: Consulting Provider: SHAWNEE MARADIAGA Physician Instructions: Reason For Exam: CHF exacerbation 08/13/20 19:32 Physical Therapy Evaluation and Treat [CONS] Routine Comment: Reason For Exam: debility Primary care physician: EDGE GLUE MACHINE TENDER Hospitalization Reason for admission: COVID-19 infection. A. fib with RVR. Acute on chronic diastolic CHF EF 55 Condition: Poor Hospital course: 75-year-old male with history of coronary artery disease, hyperlipidemia, congestive heart failure and hypertension comes in from [facility] from increasing shortness of breath and low oxygen saturations. Patient has also history of chronic kidney disease. Patient was recently diagnosed with a pneumonia at the alf facility. Patient apparently refused transportation initially. Patient was treated with antibiotics at the senior care patient's oxygen saturations are 78% at the senior care which improved with nasal cannula oxygen. Cough productive of mucoid sputum. No exposure to coronavirus. - Past Medical History Previous Medical History?: Yes --Hypertension: Yes --CVA: Yes (TIA) --Renal Disease: Yes not on dialysis) --Arthritis: Yes --Asthma: Yes Additional medical history: PAD. Anemia. suprarenal and infrarenal aortic abdominal aneurysm Assessment and Plan Assessment and plan: Assessment and Plan Assessment and plan: Atrial fibrillation with rapid ventricular response Currently rate controlled , continue current beta-blockers cardiology team consulted, IV rate control therapy, continue medical management, CHADS 2Vasc Score:3. Pt is high fall risk. Will continue therapy with aspirin. Not a candidate for chronic anticoagulation due to recurrent falls and anemia [Hb 7.9] Coronavirus infection: Coronavirus protocol: Contact and droplet precautions, IV steroid therapy, IV antibiotic therapy, supportive care. Patient on room air oxygen, Continue medical management. Prone position as tolerated Vascular dementia Verbal prompting, verbal redirection, supportive care Cerebral atherosclerosis Risk factor reduction, supportive care, antiplatelet therapy as clinically indicated. Acute on chronic diastolic CHF EF 55 to 60% BNP >35,000 [ 08/05] cardiology following, medications optimized, Low-sodium diet, fluid restriction Hyperlipidemia Low-cholesterol diet, statin therapy as clinically indicated. General debility Physical therapy consulted, case management consulted for assistance with discharge planning to alf facility versus assisted living facility. DVT prophylaxis SCD to bilateral lower extremities while in bed, prophylactic anticoagulation Advance care planning Full CODE STATUS, Discharge planning; case management, SNF placement Closely monitor the patient and adjust the management as needed Plan of care reviewed with the patient and his nurse as well as case management 08/15/2020; patient is clinically stable for discharge,Awaiting SNF placement A. fib with rapid ventricular rate, rate controlled, not a candidate for chronic anticoagulation Continue aspirin Disposition; discharge to SNF when set up 08/16/20 Patient is doing better. Patient is clinically stable for discharge, waiting for his SNF placement A. fib with rapid ventricular rate, rate controlled, not a candidate for chronic anticoagulation Continue aspirin Disposition; discharge to SNF when set up Case management is working on it. 08/17/20 Patient is doing better. No new complaint. No chest pain no shortness of breath. No anticoagulation for A. fib as per cardiology because of anemia WBC 17.1. We are going to discharge the patient to senior care with oral antibiotic. Patient and follow-up with primary care physician within a week with repeat CBC and BMP Condition at the time of discharge is stable Disposition: TO HOME OR SELFCARE Final Discharge Diagnosis (Prints w/discharge instructions): Acute on chronic diastolic C CHF EF 55 to 60%. Coronavirus infection. A. fib with RVR - Discharge Diagnoses (1) Acute respiratory failure with hypoxia Status: Acute (2) Atrial fibrillation with rapid ventricular response Status: Acute (3) CHF exacerbation Status: Acute Qualifiers: Heart failure type: combined systolic and diastolic Qualified Code(s): I50.43 - Acute on chronic combined systolic (congestive) and diastolic (congestive) heart failure (4) Coronavirus infection Status: Acute Core Measure Documentation - Palliative Care Palliative Care/ Comfort Measures: Not Applicable - Core Measures Any of the following diagnoses?: heart failure - Heart Failure Discharge Requirements ALFREDO/ARB for LVSD if EF <40%: Yes Beta ruth at discharge: Yes Exam - Constitutional Vitals: Temp Pulse Resp BP Pulse Ox 98.2 F 67 15 142/77 98 08/17/20 05:52 08/17/20 05:52 08/17/20 05:52 08/17/20 05:52 08/17/20 05:52 General appearance: Present: no acute distress, well-nourished - EENT Eyes: Present: PERRL ENT: hearing intact, clear oral mucosa - Neck Neck: Present: supple, normal ROM - Respiratory Respiratory effort: normal Respiratory: bilateral: diminished - Cardiovascular Rhythm: irregularly irregular Heart Sounds: Present: S1 & S2. Absent: rub, click - Extremities Extremities: pulses symmetrical, No edema Peripheral Pulses: within normal limits - Abdominal General gastrointestinal: Present: soft, non-tender, non-distended, normal bowel sounds Male genitourinary: Present: normal - Integumentary Integumentary: Present: clear, warm, dry - Musculoskeletal Musculoskeletal: gait normal, strength equal bilaterally - Psychiatric Psychiatric: appropriate mood/affect, intact judgment & insight - Neurologic Neurologic: CNII-XII intact, moves all extremities Plan Activity: advance as tolerated Diet: low fat, low cholesterol, low salt Special Instructions: restrict fluid intake to Durable Medical Equipment Needed Upon Discharge: Walker-Standard Prescriptions: Cefuroxime Axetil [Ceftin] 500 mg PO Q12H 5 Days ml Amiodarone [Cordarone 200 MG TAB] 200 mg PO QDAY 30 Days tablet Metoprolol [Lopressor TAB] 25 mg PO BID 30 Days tablet
[2020-08-17] MEDS: ENOXAPARIN 40 MG/0.4 ML INJ SUB-Q SCH (22:03)
[2020-08-17 23:26] VITALS: BP 131/66
== END 2020-08-17 23:24 | DRG 177 ==
LOC: ED 15:52 → 3A 21:51 → IMCU 08-08 12:07 → 3A 08-14 22:16
PROVIDERS: ADMIT Internal Medicine; ATTEND Hospitalist
DX: U07.1 COVID-19 (principal); J96.01 Acute respiratory failure with hypoxia; I50.43 Acute on chronic combined systolic (congestive) and diastolic (congestive) heart failure; J12.82 Pneumonia due to coronavirus disease 2019; I13.0 Hypertensive heart and chronic kidney disease with heart failure and stage 1 through stage 4 chronic kidney disease, or unspecified chronic kidney disease; R65.10 Systemic inflammatory response syndrome (SIRS) of non-infectious origin without acute organ dysfunction; E78.5 Hyperlipidemia, unspecified; I25.10 Atherosclerotic heart disease of native coronary artery without angina pectoris; N18.9 Chronic kidney disease, unspecified; M19.90 Unspecified osteoarthritis, unspecified site; J45.909 Unspecified asthma, uncomplicated; I73.9 Peripheral vascular disease, unspecified; F01.50 Vascular dementia, unspecified severity, without behavioral disturbance, psychotic disturbance, mood disturbance, and anxiety; I67.2 Cerebral atherosclerosis; R53.81 Other malaise; I48.0 Paroxysmal atrial fibrillation; D50.9 Iron deficiency anemia, unspecified; Z79.899 Other long term (current) drug therapy; Z91.040 Latex allergy status; Z79.82 Long term (current) use of aspirin; Z86.73 Personal history of transient ischemic attack (TIA), and cerebral infarction without residual deficits; Z82.49 Family history of ischemic heart disease and other diseases of the circulatory system
CPT/HCPCS: 36415; 71045; 80048; 80053; 80061; 82140; 82607; 82728; 82747; 82947; 82962; 83036; 83550; 83615; 83735; 83880; 84145; 84443; 84484; 85007; 85025; 85379; 86140; 87040; 93005; 96365; 96367; G0378; A9270-GY; J0282; J0360; J0456; J0692; J0696; J1100; J1170; J1650; J1940; J2405; J3370; J7040; J7050; J7060; J8540; U0003